=== PATIENT | female | born 1940 | race Caucasian/White ===

== ENCOUNTER 2018-05-21 21:19 | Emergency (ER) | payer OTHER ==
--- OUTSIDE RECORDS SUMMARY | 2018-05-21 21:22 | XMS REPORT ---
:1940 Author Organization eClinicalWorks Care Team Providers Name Role Phone Mckinley Simental Provider Role Unavailable Allergies, Adverse Reactions, Alerts Substance Reaction Event Type N.K.D.A. Info Not Available Non Drug Allergy Problems Problem Type Condition Code Onset Dates Condition Status Assessment Pain, joint, shoulder, left M25.512 Active Assessment Pain of left foot M79.672 Active Assessment Closed nondisplaced fracture of S92.515D Active proximal phalanx of lesser toe of left foot with routine healing, subsequent encounter Assessment Other closed displaced fracture of S42.292D Active proximal end of left humerus with routine healing, subsequent encounter Assessment Closed nondisplaced fracture of S92.415D Active proximal phalanx of left great toe with routine healing, subsequent encounter Medications Medication Code Code Instructions Start End Date Status Dosage System Date Lisinopril [facility] 60147461844 40 MG Oral Active TK 1 T PO D Clonazepam ND [id number] 1 MG Oral Active (Schedule IV Drug) TK 1 T PO TID PRN P Acetaminophen- [facility] 32420469334 300-30 MG Oral Active (Schedule Codeine #3 III Drug) TK 1 T PO Q 6 H PRN P Results No Known Results Summary Purpose eClinicalWorks Submission
--- NOTE | 2018-05-21 22:16 | RAD REPORT ---
EXAM DESCRIPTION: CT - CTHCSPWOC - 05/21/2018 10:02 pm CLINICAL HISTORY: Trip and fall, head and neck injury COMPARISON: CT head October 2017. TECHNIQUE: Axial 5 mm thick images of the head were obtained. Axial 2 mm thick images of the cervic al spine were obtained with sagittal and coronal reconstruction images generated and reviewed. All CT scans are performed using dose optimization technique as appropriate and may include automated exposure control or mA/KV adjustment according to patient size. FINDINGS: No intracranial hemorrhage, mass, edema or acute intracranial finding. No suspicion for ac [place] infarction. Moderate severity atrophy and chronic ischemic changes are present. Mastoid air cells and paranasal sinuses are clear. No globe or orbit abnormality seen. Cervical bodies are normal in height. No cervical fracture or acute vertebral body finding. There is slight retrolisthesis of C5 on C6 with C5-6 disc space narrowing. Mild bony foraminal encroachment is present. Carotid calcifications are present. No other disc space narrowing. Central canal detail is inherently limited. No paraspinal mass or hematoma. IMPRESSION: Moderate severity atrophy and chronic ischemic changes are present. No acute intracrania l finding. Intracranial findings are similar to the October comparison. Nonhemorrhagic infarction can be masked by the severity of chronic disease. Cervical spine degenerative change as detailed. No acute finding.
--- NOTE | 2018-05-21 22:44 | RAD REPORT ---
EXAM DESCRIPTION: RAD - Humerus Right - 05/21/2018 10:20 pm CLINICAL HISTORY: PAIN COMPARISON: Forearm Right dated 05/21/2018; Forearm Right dated 10/28/2017 FINDINGS: Right humerus and right forearm, multiple projections are submitted. Deformity of the distal radius is chronic and likely attributable to prior fracture. The humerus appe ars intact without evidence of acute fracture or dislocation. No elbow fracture seen.
--- NOTE | 2018-05-21 23:42 | EDPHYS ---
Physician Documentation [facility] Name: Valery Nair Age: 77 yrs Sex: Female : 1940 Arrival Date: 05/21/2018 Time: 21:28 Bed 13 Private MD: ED Physician Jeff Summers HPI: 05/21 23:28 This 77 yrs old Female presents to ER via EMS with complaints of Fall Injury. snw 23:28 Details of fall: The patient fell from an upright position, while walking, with cane. snw Onset: The symptoms/episode began/occurred suddenly, just prior to arrival. Associated injuries: The patient sustained injury to the head, contusion, tenderness. Severity of symptoms: At their worst the symptoms were mild, moderate. It is unknown whether or not the patient has had similar symptoms in the past. The patient has not recently seen a physician. pt was walking up driveway with cane, uneven cement and pt fell backward, striking her head, no LOC, no vomiting. Historical: - Allergies: 22:09 No Known Allergies; aa1 - Home Meds: 22:09 lisinopril 10 mg Oral tab 1 tab once daily [Active]; clonazepam 0.5 mg Oral tab aa1 [Active]; amlodipine oral [Active]; Tramadol Oral [Active]; Tylenol #3 Oral [Active]; - PMHx: 22:09 Anemia; CVA; Hypertension; Myocardial infarction; aa1 - PSHx: 22:09 Joint replacement; Hysterectomy; aa1 - Immunization history: Last tetanus immunization: unknown. - Social history:: Smoking status: Patient/guardian denies using tobacco. - Ebola Screening: : No symptoms or risks identified at this time. ROS: 23:28 Constitutional: Negative for fever, chills, and weight loss, Eyes: Negative for injury, snw pain, redness, and discharge, ENT: Negative for injury, pain, and discharge, Neck: Negative for injury, pain, and swelling, Cardiovascular: Negative for chest pain, palpitations, and edema, Respiratory: Negative for shortness of breath, cough, wheezing, and pleuritic chest pain, Abdomen/GI: Negative for abdominal pain, nausea, vomiting, diarrhea, and constipation, Back: Negative for injury and pain, : Negative for injury, bleeding, discharge, and swelling, MS/Extremity: Negative for injury and deformity, Skin: Negative for injury, rash, and discoloration. 23:28 Neuro: Positive for headache. Exam: 23:25 Constitutional: This is a well developed, well nourished patient who is awake, alert, snw and in no acute distress. Head/Face: Normocephalic, traumatic - upper occiput with abrasion, bleeding controlled. Eyes: Pupils equal round and reactive to light, extra-ocular motions intact. Lids and lashes normal. Conjunctiva and sclera are non-icteric and not injected. Cornea within normal limits. Periorbital areas with no swelling, redness, or edema. ENT: Nares patent. No nasal discharge, no septal abnormalities noted. Tympanic membranes are normal and external auditory canals are clear. Oropharynx with no redness, swelling, or masses, exudates, or evidence of obstruction, uvula midline. Mucous membranes moist. Neck: Trachea midline, no thyromegaly or masses palpated, and no cervical lymphadenopathy. Supple, full range of motion without nuchal rigidity, or vertebral point tenderness. No Meningismus. Chest/axilla: Normal chest wall appearance and motion. Nontender with no deformity. No lesions are appreciated. Cardiovascular: Regular rate and rhythm with a normal S1 and S2. No gallops, murmurs, or rubs. Normal PMI, no JVD. No pulse deficits. Respiratory: Lungs have equal breath sounds bilaterally, clear to auscultation and percussion. No rales, rhonchi or wheezes noted. No increased work of breathing, no retractions or nasal flaring. Abdomen/GI: Soft, non-tender, with normal bowel sounds. No distension or tympany. No guarding or rebound. No evidence of tenderness throughout. Back: No spinal tenderness. No costovertebral tenderness. Full range of motion. Neuro: Awake and alert, GCS 15, oriented to person, place, time, and situation. Cranial nerves II-XII grossly intact. Motor strength 5/5 in all extremities. Sensory grossly intact. Cerebellar exam normal. Normal gait. 23:25 Musculoskeletal/extremity: ROM: limited active range of motion due to pain, left shoulder, Circulation is intact in all extremities. 23:25 Skin: Appearance: normal except for affected area, injury, abrasion(s), small abrasion noted, right elbow. 23:25 Neuro: Mentation: is normal, Memory: is normal, Cerebellar function: is grossly normal, Sensation: is normal, Babinski testing is normal, seizure activity, is not displayed by the patient, hard of hearing. Vital Signs: 21:30 BP 163 / 67; Pulse 83; Resp 18; Temp 97.1; Pulse Ox 99% on R/A; Weight 38.1 kg; Height aa1 5 ft. 0 in. (152.40 cm); Pain 8/10; 22:30 BP 177 / 74; Pulse 76; Resp 18; Pulse Ox 96% on R/A; Pain 8/10; aa1 23:30 BP 144 / 95; Pulse 72; Resp 16; Pulse Ox 96% on R/A; Pain 6/10; aa1 05/22 00:05 BP 109 / 63; Pulse 77; Resp 18; Temp 97.2; Pulse Ox 95% on R/A; Pain 2/10; aa1 05/21 21:30 Body Mass Index 16.40 (38.10 kg, 152.40 cm) aa Janell Coma Score: 05/21 21:30 Eye Response: spontaneous(4). Verbal Response: oriented(5). Motor Response: obeys aa1 commands(6). Total: 15. Trauma Score (Adult): 21:30 Eye Response: spontaneous(1); Verbal Response: oriented(1); Motor Response: obeys aa1 commands(2); Systolic BP: > 89 mm Hg(4); Respiratory Rate: 10 to 29 per min(4); Janell Score: 15; Trauma Score: 12 22:30 Eye Response: spontaneous(1); Verbal Response: oriented(1); Motor Response: obeys aa1 commands(2); Systolic BP: > 89 mm Hg(4); Respiratory Rate: 10 to 29 per min(4); Carey Score: 15; Trauma Score: 12 23:30 Eye Response: spontaneous(1); Verbal Response: oriented(1); Motor Response: obeys aa1 commands(2); Systolic BP: > 89 mm Hg(4); Respiratory Rate: 10 to 29 per min(4); Janell Score: 15; Trauma Score: 12 05/22 00:05 Eye Response: spontaneous(1); Verbal Response: oriented(1); Motor Response: obeys aa1 commands(2); Systolic BP: > 89 mm Hg(4); Respiratory Rate: 10 to 29 per min(4); Carey Score: 15; Trauma Score: 12 MDM: 05/21 22:02 Patient medically screened. [facility] 23:43 Data reviewed: vital signs, nurses notes. Data interpreted: Pulse oximetry: on room air snw is 96 %. Interpretation: acceptable. Counseling: I had a detailed discussion with the patient and/or guardian regarding: the historical points, exam findings, and any diagnostic results supporting the discharge/admit diagnosis, the presence of at least one elevated blood pressure reading (>120/80) during this emergency department visit, radiology results, the need for outpatient follow up, to return to the emergency department if symptoms worsen or persist or if there are any questions or concerns that arise at home. Special discussion: I have referred the patient to see his PCP for further evaluation of high blood pressure. Based on the patient's history, exam and DX evaluation, there is no indication for emergent intervention or inpatient TX. It is understood by the patient/guardian that if the SXs persist or worsen they need to return immediately for re-evaluation. Based on the history and exam findings, there is no indication for further emergent testing or inpatient evaluation. I discussed with the patient/guardian the need to see the neurologist for further evaluation of the symptoms. I discussed with the patient/guardian the need to see the primary care provider for further evaluation of the symptoms. 23:52 ED course: appt with PCP in the a.m.. 05/21 21:52 Order name: CT Head C Spine; Complete Time: 22:18 05/21 21:52 Order name: Forearm Right XRAY aa05/21 21:52 Order name: Humerus Right XRAY; Complete Time: 22:45 aa05/21 23:07 Order name: Wound Care; Complete Time: 00:07 snw 05/21 23:07 Order name: Misc. Order: please ambulate pt in hallways; Complete Time: 23:37 snw 05/21 23:44 Order name: Wound dressing; Complete Time: 00:06 snw Administered Medications: 23:50 Drug: fentaNYL (PF) 25 mcg Route: IVP; Site: right antecubital; 05/22 00:07 Follow up: Response: No adverse reaction; Pain is decreased aa1 00:06 Not Given (Other Intervention Used): fentaNYL (PF) 25 mcg IM once aa1 Disposition: 14:01 Co-signature as Attending Physician, eJff Summers MD I agree with the assessment and [facility] plan of care. Disposition: 05/21/18 23:41 Discharged to Home. Impression: Fall on same level from slipping, tripping and stumbling, Unspecified injury of head, Abrasion of elbow, Abrasion of scalp. - Condition is Stable. - Discharge Instructions: Acetaminophen Dosage Chart, Pediatric, Head Injury, Adult, Fall Prevention in the Home, Post-Concussion Syndrome. - Medication Reconciliation Form, Thank You Letter, Antibiotic Education, Prescription Opioid Use form. - Follow up: Private Physician; When: 1 - 2 days; Reason: Recheck today's complaints, Continuance of care, Re-evaluation by your physician. Follow up: Emergency Department; When: As needed; Reason: Worsening of condition. Signatures: Dispatcher [employer] EDMS Pamela Noel RN RN aa1 Jeff Summers MD MD cha Therrien, Shelly, HOOKING MACHINE OPERATOR-C HOOKING MACHINE OPERATOR-Csnw Corrections: (The following items were deleted from the chart) 05/21 23:28 23:25 Constitutional: This is a well developed, well nourished patient who is awake, snw alert, and in no acute distress. Eyes: Pupils equal round and reactive to light, extra-ocular motions intact. Lids and lashes normal. Conjunctiva and sclera are non-icteric and not injected. Cornea within normal limits. Periorbital areas with no swelling, redness, or edema. ENT: Nares patent. No nasal discharge, no septal abnormalities noted. Tympanic membranes are normal and external auditory canals are clear. Oropharynx with no redness, swelling, or masses, exudates, or evidence of obstruction, uvula midline. Mucous membranes moist. Neck: Trachea midline, no thyromegaly or masses palpated, and no cervical lymphadenopathy. Supple, full range of motion without nuchal rigidity, or vertebral point tenderness. No Meningismus. Chest/axilla: Normal chest wall appearance and motion. Nontender with no deformity. No lesions are appreciated. Cardiovascular: Regular rate and rhythm with a normal S1 and S2. No gallops, murmurs, or rubs. Normal PMI, no JVD. No pulse deficits. Respiratory: Lungs have equal breath sounds bilaterally, clear to auscultation and percussion. No rales, rhonchi or wheezes noted. No increased work of breathing, no retractions or nasal flaring. Abdomen/GI: Soft, non-tender, with normal bowel sounds. No distension or tympany. No guarding or rebound. No evidence of tenderness throughout. Back: No spinal tenderness. No costovertebral tenderness. Full range of motion. Neuro: Awake and alert, GCS 15, oriented to person, place, time, and situation. Cranial nerves II-XII grossly intact. Motor strength 5/5 in all extremities. Sensory grossly intact. Cerebellar exam normal. Normal gait. snw 05/22 00:07 05/21 23:41 05/21/2018 23:41 Discharged to Home. Impression: Fall on same level from aa1 slipping, tripping and stumbling; Unspecified injury of head; Abrasion of elbow; Abrasion of scalp. Condition is Stable. Forms are Medication Reconciliation Form, Thank You Letter, Antibiotic Education, Prescription Opioid Use. Follow up: Private Physician; When: 1 - 2 days; Reason: Recheck today's complaints, Continuance of care, Re-evaluation by your physician. Follow up: Emergency Department; When: As needed; Reason: Worsening of condition. snw
--- NOTE | 2018-05-21 23:42 | ER ---
Nurse's Notes [facility] Name: Valery Nair Age: 77 yrs Sex: Female : 1940 Arrival Date: 05/21/2018 Time: 21:28 Bed 13 Private MD: Diagnosis: Fall on same level from slipping, tripping and stumbling;Unspecified injury of head;Abrasion of elbow;Abrasion of scalp Presentation: 05/21 21:29 Presenting complaint: EMS states: pt was walking up the sidewalk to her apartment and aa1 tripped on some uneven concrete causing her to fall and hit the back of her head on the ground. Denies LOC. Hematoma noted to back of head and abrasion noted to R elbow. Pt A\T\O x 4 with c-collar in place. Care prior to arrival: Cervical collar in place. IV initiated. 20 GA, in the right antecubital area. Mechanism of Injury: Fall from standing position. Trauma event details: Injury occurred in the [facility], Injury occurred: at home. Injury occurred: May 21, 2018. 21:29 Acuity: MARIBETH 3 aa1 21:29 Method Of Arrival: [facility] aa1 21:29 Transition of care: patient was not received from another setting of care. Onset of aa1 symptoms was May 21, 2018. Risk Assessment: Do you want to hurt yourself or someone else? Patient reports no desire to harm self or others. Initial Sepsis Screen: Does the patient meet any 2 criteria? No. Patient's initial sepsis screen is negative. Does the patient have a suspected source of infection? No. Patient's initial sepsis screen is negative. Trauma Activation: Alert Physician: ED Physician; Name: Kristopher; Notified At: 21:29; Arrived At: 21:29 Physician: General Surgeon; Name: n/a; Notified At: 21:29; Arrived At: Physician: Radiology; Name: Shirin Sánchez; Notified At: 21:29; Arrived At: 21:32 Physician: Respiratory; Name: n/a; Notified At: 21:29; Arrived At: Physician: Lab; Name: n/a; Notified At: 21:29; Arrived At: Historical: - Allergies: 22:09 No Known Allergies; aa1 - Home Meds: 22:09 lisinopril 10 mg Oral tab 1 tab once daily [Active]; clonazepam 0.5 mg Oral tab aa1 [Active]; amlodipine oral [Active]; Tramadol Oral [Active]; Tylenol #3 Oral [Active]; - PMHx: 22:09 Anemia; CVA; Hypertension; Myocardial infarction; aa1 - PSHx: 22:09 Joint replacement; Hysterectomy; aa1 - Immunization history: Last tetanus immunization: unknown. - Social history:: Smoking status: Patient/guardian denies using tobacco. - Ebola Screening: : No symptoms or risks identified at this time. Screenin:30 Abuse screen: Denies threats or abuse. Denies injuries from another. Tuberculosis aa1 screening: No symptoms or risk factors identified. 21:31 Nutritional screening: No deficits noted. Fall Risk Fall in past 12 months (25 points). aa1 No secondary diagnosis (0 pts). IV access (20 points). Ambulatory Aid- Crutches/Cane/Walker (15 pts). Mental Status- Oriented to own ability (0 pts). Primary Survey: 21:30 A: Airway: patent. Breathing/Chest: Respiratory pattern: regular, Respiratory effort: aa1 spontaneous, unlabored, Breath sounds: clear, bilaterally. Chest inspection: symmetrical rise and fall of the chest. Circulation: Heart tones present. Pulses: palpable right radial artery and left radial artery. Skin color: pink, Skin temperature: warm, dry. Disability Alert. 22:30 Reassessment Airway Airway Breathing/Chest Respiratory pattern Regular Respiratory aa1 effort Spontaneous Unlabored Circulation Color Laurier Temperature Warm Disability Alert. Secondary Survey: 21:30 HEENT: Head Other hematoma with abrasion noted to back of head. Gastrointestinal: No aa1 deficits noted. : No signs and/or symptoms were reported regarding the genitourinary system. Musculoskeletal: Circulation, motion, and sensation intact. Range of motion: intact in all extremities. Assessment: 21:30 General: Appears in no apparent distress. comfortable, slender, Behavior is calm, aa1 cooperative, appropriate for age. Pain: Complains of pain in scalp and right arm Pain currently is 8 out of 10 on a pain scale. Quality of pain is described as throbbing. Neuro: Level of Consciousness is awake, alert, obeys commands, Oriented to person, place, time, situation, Moves all extremities. Speech is normal, Pupils are PERRLA, Reports headache Denies blurred vision dizziness, diplopia. Cardiovascular: Heart tones S1 S2 present Rhythm is regular. Respiratory: Airway is patent Respiratory effort is even, unlabored, Respiratory pattern is regular, symmetrical. GI: No signs and/or symptoms were reported involving the gastrointestinal system. : No signs and/or symptoms were reported regarding the genitourinary system. EENT: No signs and/or symptoms were reported regarding the EENT system. Derm: Skin is intact, is healthy with good turgor, has skin tears on R elbow Skin is pink, warm \T\ dry. Musculoskeletal: Circulation, motion, and sensation intact. Capillary refill < 3 seconds. Injury Description: Head injury sustained to scalp is closed, did not have loss of consciousness. 23:30 Reassessment: Patient appears in no apparent distress at this time. Patient and/or aa1 family updated on plan of care and expected duration. Pain level reassessed. Patient is alert, oriented x 3, equal unlabored respirations, skin warm/dry/pink. Pt ambulated hallway to restroom with steady gait. Denies dizziness or lightheadedness Patient states feeling better. 05/22 00:00 Reassessment: Patient appears in no apparent distress at this time. Patient is alert, aa1 oriented x 3, equal unlabored respirations, skin warm/dry/pink. Discussed d/c \T\ f/u instructions with pt \T\ family; denies questions or concerns at this time. Vital Signs: 05/21 21:30 BP 163 / 67; Pulse 83; Resp 18; Temp 97.1; Pulse Ox 99% on R/A; Weight 38.1 kg; Height aa1 5 ft. 0 in. (152.40 cm); Pain 8/10; 22:30 BP 177 / 74; Pulse 76; Resp 18; Pulse Ox 96% on R/A; Pain 8/10; aa1 23:30 BP 144 / 95; Pulse 72; Resp 16; Pulse Ox 96% on R/A; Pain 6/10; aa1 05/22 00:05 BP 109 / 63; Pulse 77; Resp 18; Temp 97.2; Pulse Ox 95% on R/A; Pain 2/10; aa1 05/21 21:30 Body Mass Index 16.40 (38.10 kg, 152.40 cm) aa1 Janell Coma Score: 05/21 21:30 Eye Response: spontaneous(4). Verbal Response: oriented(5). Motor Response: obeys aa1 commands(6). Total: 15. Trauma Score (Adult): 21:30 Eye Response: spontaneous(1); Verbal Response: oriented(1); Motor Response: obeys aa1 commands(2); Systolic BP: > 89 mm Hg(4); Respiratory Rate: 10 to 29 per min(4); [place] Score: 15; Trauma Score: 12 22:30 Eye Response: spontaneous(1); Verbal Response: oriented(1); Motor Response: obeys aa1 commands(2); Systolic BP: > 89 mm Hg(4); Respiratory Rate: 10 to 29 per min(4); [place] Score: 15; Trauma Score: 12 23:30 Eye Response: spontaneous(1); Verbal Response: oriented(1); Motor Response: obeys aa1 commands(2); Systolic BP: > 89 mm Hg(4); Respiratory Rate: 10 to 29 per min(4); [place] Score: 15; Trauma Score: 12 0807 00:05 Eye Response: spontaneous(1); Verbal Response: oriented(1); Motor Response: obeys aa1 commands(2); Systolic BP: > 89 mm Hg(4); Respiratory Rate: 10 to 29 per min(4); Janell Score: 15; Trauma Score: 12 ED Course: 05/21 21:28 Patient arrived in ED. aa1 21:29 Arm band placed on right wrist. Patient placed in an exam room, on a stretcher. aa1 21:30 Patient has correct armband on for positive identification. Bed in low position. Call aa1 light in reach. Side rails up X2. 21:30 Patient maintains SpO2 saturation greater than 95% on room air. aa1 21:31 Thermoregulation: warm blanket given to patient. aa1 21:35 Triage completed. aa1 21:49 Pamela Noel, RN is Primary Nurse. aa1 21:[address] via stretcher. nj 22:00 [facility] snw 22:00 Jeff Summers MD is Attending Physician. snw 22:02 CT completed. Patient tolerated procedure well. Patient moved back from CT. nj 22:03 Patient moved to radiology. nj 22:03 CT Head C Spine In Process Unspecified. EDMS 22:20 Forearm Right XRAY In Process Unspecified. EDMS 22:20 Humerus Right XRAY In Process Unspecified. EDMS 23:35 Wound care: to abrasion, located on scalp was irrigated with normal saline, dressed aa1 with 4X4s, cling, Patient tolerated well. 08 00:00 No provider procedures requiring assistance completed. IV discontinued, intact, aa1 bleeding controlled, No redness/swelling at site. Pressure dressing applied. Administered Medications: 05/21 23:50 Drug: fentaNYL (PF) 25 mcg Route: IVP; Site: right antecubital; aa1 05/22 00:07 Follow up: Response: No adverse reaction; Pain is decreased aa1 00:06 Not Given (Other Intervention Used): fentaNYL (PF) 25 mcg IM once aa1 Intake: 00:05 PO: 0ml; IV: 0ml; Total: 0ml. aa1 Outcome: 05/21 23:41 Discharge ordered by . snw 05/22 00:05 Discharged to home via wheelchair, with family. aa1 Condition: good Discharge instructions given to patient, family, Instructed on discharge instructions, follow up and referral plans. medication usage, wound care, Demonstrated understanding of instructions, follow-up care, medications, wound care. 00:05 Patient's length of stay in the Emergency Department was greater than 2 hours. Awaiting aa1 transportation homePatient's length of stay extended due to 00:07 Patient left the ED. aa1 Signatures: Dispatcher [employer] Pamela Gutierrez RN RN aa1 Ana Lee FNP-C FNP-Mamadou Pandey Corrections: (The following items were deleted from the chart) 05/21 21:38 21:29 Trauma Activation: Alert aa1 aa1
[2018-05-21] MEDS ORDERED: FENTANYL CITR 100 MCG/2 ML ONE (23:49)
[2018-05-22 00:23] VITALS: BP 109/63; TEMP 97.2; O2SAT 95
== END 2018-05-22 00:07 | disposition home or self-care (01) ==
LOC: ER 21:19
DX: S00.01XA Abrasion of scalp, initial encounter (principal); S50.311A Abrasion of right elbow, initial encounter; I10 Essential (primary) hypertension; I25.2 Old myocardial infarction; W18.30XA Fall on same level, unspecified, initial encounter; Y93.01 Activity, walking, marching and hiking; Y92.89 Other specified places as the place of occurrence of the external cause; Z86.73 Personal history of transient ischemic attack (TIA), and cerebral infarction without residual deficits
CPT/HCPCS: 70450; 72125; 73060; 73090; J3010; 96374; 99285

== ENCOUNTER 2018-05-27 16:05 | Inpatient (IN) | payer OTHER ==
--- OUTSIDE RECORDS SUMMARY | 2018-05-27 16:07 | XMS REPORT ---
[...] Date Status Dosage System Date Lisinopril [facility] [id number] 40 MG Oral Active TK 1 T PO D Clonazepam ND [id number] 1 MG Oral Active (Schedule IV Drug) TK 1 T PO TID PRN P Acetaminophen- [facility] [id number] 300-30 MG Oral Active (Schedule Codeine #3 III Drug) TK 1 T PO Q 6 H PRN P Results No Known Results Summary Purpose eClinicalWorks Submission
--- NOTE | 2018-05-27 17:12 | RAD REPORT ---
EXAM DESCRIPTION: CT - Head Brain Wo Cont - 05/27/2018 4:54 pm CLINICAL HISTORY: Weakness, dizziness, syncope COMPARISON: October 2017 TECHNIQUE: Axial 5 mm thick images of the head were obtained without IV contrast. All CT scans are performed using dose optimization technique as appropriate and may include automated exposure control or mA/KV adjustment according to patient size. FINDINGS: No intracranial hemorrhage, mass, edema or shift of mid-line structures. No acute cortical based infarction. Moderate atrophy and chronic ischemic changes are present. Pattern is similar to J anuary. No abnormal extra-axial fluid collections. Ventricular size is in proportion to volume loss. Arterial and physiologic calcifications are present. No new mastoid air cell or paranasal sinus finding. No acute bony findings. IMPRESSION: Moderate atrophy and chronic ischemic change similar to comparison. No acute findings se en. Chronic ischemic changes can mask nonhemorrhagic acute infarction. MR brain followup can be obtained if there is ongoing concern for acute ischemia.
--- NOTE | 2018-05-27 17:14 | RAD REPORT ---
EXAM DESCRIPTION: RAD - Chest Single View - 05/27/2018 5:02 pm CLINICAL HISTORY: Cough, shortness of breath, COPD COMPARISON: October 2017 TECHNIQUE: AP portable chest image was obtained 1648 hours . FINDINGS: Extensive fibrotic lung changes present as a baseline. These can potentially mask early in terstitial edema or infiltrate. Pattern is not clearly different from comparison. A focal mass or con solidation is not identified. Heart size and vasculature are normal range and stable. No measurable p leural effusion and no pneumothorax. Disc and bony degenerative changes are present. An acute finding is not seen. No acute aortic findings suspected. IMPRESSION: Chronic interstitial fibrotic pattern similar to comparison. No acute finding noted.
[2018-05-27 17:42] LABS: Absolute Lymphocytes (CBC) 1.5 K/uL (0.7-4.9); Absolute Monocytes 1.3 K/uL (0.1-1.3); Absolute Neutrophil 15.4 K/uL (1.8-8.0); Eosinophils % 0.1 % (0-4.4); Hematocrit 40.9 % (36.0-45.0); MCH 32.9 pg (27.0-35.0); MCV 100.3 fL (80-100); MPV 9.5 fL (7.6-11.3); Monocytes % 7.1 % (3.3-12.3); RBC Red Blood Cell Count 4.08 M/uL (3.86-4.86)
[2018-05-27 17:47] LABS: Protime INR 0.98
[2018-05-27 18:03] LABS: Albumin 3.4 g/dL (3.4-5.0); Bilirubin Direct 0.1 mg/dL (0-0.2); Bilirubin Total 0.2 mg/dL (0.2-1.0); CKMB Creatine Kinase MB 7.5 ng/mL (0.3-3.6); Magnesium 2.2 mg/dL (1.8-2.4); Potassium 4.2 mmol/L (3.5-5.1); Protein, Total 8.6 g/dL (6.4-8.2)
[2018-05-27 19:02] LABS: Urine Blood TRACE (NEG); Urine Glucose NEGATIVE (NEG); Urine Protein 2+ (NEG); Urine Specific Gravity 1.025 (1.005-1.030)
[2018-05-27] MEDS ORDERED: NA CHLORIDE 0.9% 0 ML ONE (19:07)
[2018-05-27] MEDS ORDERED: ENOXAPARIN 40 MG/0.4 ML SQ ONE ×2 (19:07→19:34)
[2018-05-27] MEDS ORDERED: CEFTRIAXONE/SWI 1gm 0 GM/0 ML SYR ONE (19:08)
--- NOTE | 2018-05-27 19:10 | EDPHYS ---
Physician Documentation [facility] Name: Valery Nair Age: 77 yrs Sex: Female : 1940 Arrival Date: 05/27/2018 Time: 16:11 Bed 6 Private MD: ED Physician Monico Chavez HPI: 05/27 16:21 This 77 yrs old Female presents to ER via EMS with complaints of General cp Weakness. 16:21 The patient's problem is reported as weakness, that is generalized. cp 16:21 Onset: The symptoms/episode began/occurred gradually. Duration: The episode is cp continuous. Associated signs and symptoms: Pertinent positives: diarrhea, Pertinent negatives: abdominal pain, chest pain, diaphoresis, headache, vomiting. Severity of symptoms: in the emergency department the symptoms are unchanged despite home interventions. Patient's baseline: Neuro: alert and fully oriented, Ambulation: walks with assist only, Speech: normal, The patient has a previous history of CVA. Historical: - Allergies: 16:15 No Known Allergies; sg - Home Meds: 16:15 amlodipine oral [Active]; clonazepam 0.5 mg Oral tab [Active]; lisinopril 10 mg Oral sg tab 1 tab once daily [Active]; Tramadol Oral [Active]; Tylenol #3 Oral [Active]; - PMHx: 16:15 Anemia; CVA; Hypertension; Myocardial infarction; sg - PSHx: 16:15 Joint replacement; Hysterectomy; sg - Immunization history:: Adult Immunizations. - Social history:: Smoking status: Patient/guardian denies using tobacco. - Ebola Screening: : Patient negative for fever greater than or equal to 101.5 degrees Fahrenheit, and additional compatible Ebola Virus Disease symptoms Patient denies exposure to infectious person Patient denies travel to an Ebola-affected area in the 21 days before illness onset No symptoms or risks identified at this time. ROS: 16:25 Constitutional: Positive for poor PO intake, Negative for body aches, chills, fever. cp 16:25 Eyes: Negative for injury, pain, redness, and discharge. cp 16:25 ENT: Negative for drainage from ear(s), ear pain, sore throat, difficulty swallowing, difficulty handling secretions. 16:25 Cardiovascular: Negative for chest pain, edema, palpitations. 16:25 Respiratory: Negative for cough, shortness of breath, wheezing. 16:25 Abdomen/GI: Positive for diarrhea, Negative for abdominal pain, vomiting, constipation, black/tarry stool, rectal bleeding. 16:25 Back: Negative for pain at rest, pain with movement, radiated pain. 16:25 : Negative for urinary symptoms. 16:25 Skin: Negative for cellulitis, rash. 16:25 Neuro: Positive for weakness, Negative for altered mental status, headache, syncope. 16:25 All other systems are negative. Exam: 16:30 Constitutional: The patient appears in no acute distress, alert, awake, cp non-diaphoretic, non-toxic, well developed, frail. 16:30 Head/Face: Normocephalic, atraumatic. Eyes: Pupils equal round and reactive to light, cp extra-ocular motions intact. Lids and lashes normal. Conjunctiva and sclera are non-icteric and not injected. Cornea within normal limits. Periorbital areas with no swelling, redness, or edema. 16:30 ENT: External ear(s): are unremarkable, Ear canal(s): are normal, clear, TM's: bulging, is not appreciated, bilaterally, dullness, bilaterally, erythema, is not appreciated, bilaterally, Nose: is normal, Mouth: Lips: dry, Oral mucosa: dry, Posterior pharynx: Airway: no evidence of obstruction, patent, Uvula: midline, swelling, is not appreciated, erythema, is not appreciated, exudate, is not appreciated, Voice: is normal. 16:30 Neck: External neck: is normal, ROM/movement: is normal, is supple, without pain, no range of motions limitations, no meningismus, no nuchal rigidity. 16:30 Chest/axilla: Inspection: normal, Palpation: is normal, no crepitus, no tenderness. 16:30 Cardiovascular: Rate: normal, Rhythm: regular, Pulses: Pulses are 2+ in right radial artery and left radial artery. Edema: is not appreciated, JVD: is not appreciated. 16:30 Respiratory: the patient does not display signs of respiratory distress, Respirations: normal, no use of accessory muscles, no retractions, no splinting, no tachypnea, labored breathing, is not present, Breath sounds: are clear throughout, no decreased breath sounds, no stridor, no wheezing. 16:30 Abdomen/GI: Inspection: abdomen appears normal, Bowel sounds: active, all quadrants, Palpation: abdomen is soft and non-tender, in all quadrants, rebound tenderness, is not appreciated, voluntary guarding, is not appreciated, involuntary guarding, is not appreciated. 16:30 Back: pain, is absent, ROM is normal. 16:30 Skin: cellulitis, is not appreciated, no rash present. 16:30 Neuro: Orientation: to person, place \T\ time. Mentation: lucid, able to follow commands, Cerebellar function: is grossly normal, Motor: moves all fours, general weakness w/o focal deficits, Sensation: no obvious gross deficits, Gait: not tested. 16:42 ECG was reviewed by the Attending Physician. cp 17:36 Radiologist reports: no acute findings cp Vital Signs: 16:11 Temp 97.8; sv 16:15 BP 129 / 63; Pulse 90 MON; Resp 17 S; Pulse Ox 98% on R/A; sg 16:24 Weight 42.64 kg (R); sg 17:33 BP 95 / 46; Pulse 89; Resp 17; Pulse Ox 99% ; sv 18:30 BP 130 / 77; Pulse 92; Resp 17 S; Pulse Ox 98% on 3 lpm NC; sg 19:00 BP 136 / 89; Pulse 98; Resp 17; Pulse Ox 99% on 3 lpm NC; sg 19:30 BP 106 / 56; Pulse 98; Resp 16; Pulse Ox 99% on R/A; Pain 0/10; ao 20:30 BP 112 / 64; Pulse 98; Resp 16; Pulse Ox 96% on R/A; ao 21:30 BP 108 / 62; Pulse 97; Resp 12; Pulse Ox 95% on R/A; ao 22:28 BP 111 / 65; Pulse 90; Resp 12; Pulse Ox 95% ; Pain 0/10; ao 22:45 BP 124 / 60; Pulse 92; Resp 16; Pulse Ox 98% on 2 lpm NC; ao MDM: 16:12 Patient medically screened. cp 17:00 Differential diagnosis: CVA, TIA, metabolic disorder, drug effects, dehydration, cp sepsis, UTI, pneumonia, FL, cardiac arrythmia. 18:10 Data reviewed: vital signs, nurses notes, lab test result(s), EKG, radiologic studies, cp CT scan, plain films. 18:10 Test interpretation: by ED physician or midlevel provider: ECG, plain radiologic cp studies. Counseling: I had a detailed discussion with the patient and/or guardian regarding: the historical points, exam findings, and any diagnostic results supporting the discharge/admit diagnosis, lab results, radiology results, the need for further work-up and treatment in the hospital. 05/27 16:22 Order name: Basic Metabolic Panel; Complete Time: 18:04 cp /12 16:22 Order name: CBC with Diff; Complete Time: 18:04 cp /12 16:22 Order name: Ckmb; Complete Time: 18:04 cp 08/12 16:22 Order name: CPK; Complete Time: 18:04 cp /12 16:22 Order name: LFT's; Complete Time: 18:04 cp /12 16:22 Order name: Magnesium; Complete Time: 18:04 cp 08/12 16:22 Order name: NT PRO-BNP; Complete Time: 18:04 cp /12 16:22 Order name: PT-INR; Complete Time: 18:04 cp /12 16:22 Order name: Ptt, Activated; Complete Time: 18:04 cp 08/12 16:22 Order name: Troponin (emerg Dept Use Only); Complete Time: 18:04 cp /12 18:08 Order name: Blood Culture Adult (2) cp 08/12 18:08 Order name: Procalcitonin; Complete Time: 20:55 cp 08/12 20:55 Interpretation: Abnormal: Procalcitonin 237.67. cp 08/12 18:08 Order name: Lactate; Complete Time: 20:55 cp 08/12 20:55 Interpretation: Abnormal: LAC 2.3. cp 08/12 18:55 Order name: Urine Dipstick--Ancillary (enter results); Complete Time: 19:35 eb 08/12 16:22 Order name: XRAY Chest (1 view); Complete Time: 17:33 cp 08/12 17:34 Interpretation: Report review. cp 08/12 16:22 Order name: EKG; Complete Time: 16:23 cp 08/12 16:22 Order name: Cardiac monitoring; Complete Time: 16:23 cp /12 16:22 Order name: EKG - Nurse/Tech; Complete Time: 16:41 cp / 16:22 Order name: IV Saline Lock; Complete Time: 16:23 cp 0812 16:22 Order name: Labs collected and sent; Complete Time: 16:23 0812 16:22 Order name: O2 Per Protocol; Complete Time: 16:23 cp 08/12 16:22 Order name: CT Head Brain wo Cont; Complete Time: 17:33 cp 08/12 17:34 Interpretation: Report reviewed. 08 20:57 Order name: Urine Microscopic Only 08 16:22 Order name: O2 Sat Monitoring; Complete Time: 16:24 0812 16:22 Order name: Urine Dipstick-Ancillary (obtain specimen); Complete Time: 19:50 cp 08 16:22 Order name: Cath; Complete Time: 19:50 cp EC:42 Rate is 88 beats/min. Rhythm is regular. VT interval is normal. QRS interval is normal. cp QT interval is normal. Interpreted by me. Reviewed by me. Administered Medications: 17:43 Drug: NS 0.9% 250 ml Route: IV; Rate: bolus; Site: right antecubital; sg 19:00 Follow up: IV Status: Completed infusion; IV Intake: 250ml ao 17:43 Drug: NS 0.9% 1000 ml Route: IV; Rate: 100 ml/hr; Site: right antecubital; sg 22:50 Follow up: IV Status: Infusion continued upon admission; IV Intake: 400ml ao 19:30 Drug: Lovenox 1 mg/kg Route: Sub-Q; Site: right lower abdomen; sg 22:49 Follow up: Response: No adverse reaction ao 19:48 Drug: NS 0.9% 500 ml Route: IV; Rate: bolus; Site: right antecubital; ao 22:49 Follow up: IV Status: Completed infusion ao 19:49 Drug: Rocephin 1 grams Route: IV; Rate: bolus; Site: right antecubital; ao 20:20 Follow up: IV Status: Completed infusion; IV Intake: 10ml ao 19:49 Drug: Aspirin Chewable Tablet 324 mg Route: PO; ao 22:50 Follow up: Response: No adverse reaction ao 22:19 Drug: NS 0.9% (30 ml/kg) 30 ml/kg Route: IV; Rate: bolus; Site: left antecubital; ao 22:49 Follow up: IV Status: Completed infusion; IV Intake: 1200ml ao Disposition: 05/27/18 19:09 Hospitalization ordered by Pancho Boyd for Inpatient Admission. Preliminary diagnosis are Weakness - General, Dehydration, Elevated Troponin. - Bed requested for Telemetry/MedSurg (Inpatient). - Status is Inpatient Admission. ao - Condition is Stable. - Problem is new. - Symptoms have improved. UTI on Admission? No Addendum: 06/05/2018 08:27 Co-signature as Attending Physician, Monico Chavez MD. r n Signatures: Dispatcher [employer] EDMS Prema Mathis RN RN kl Gay, Steven, RN RN sg Nieto, Roman, MD MD rn Page, Corey, PA PA cp Williams Brown RN RN ao Corrections: (The following items were deleted from the chart) 05/27 19:10 19:09 Hospitalization Ordered by Pancho Boyd DO for Inpatient Admission. Preliminary cp diagnosis is Weakness - General; Dehydration. Bed requested for Telemetry/MedSurg (Inpatient). Status is Inpatient Admission. Condition is Stable. Problem is new. Symptoms have improved. UTI on Admission? No. cp 19:48 19:10 05/27/2018 19:09 Hospitalization Ordered by Pancho Boyd DO for Inpatient kl Admission. Preliminary diagnosis is Weakness - General; Dehydration; Elevated Troponin. Bed requested for Telemetry/MedSurg (Inpatient). Status is Inpatient Admission. Condition is Stable. Problem is new. Symptoms have improved. UTI on Admission? No. cp 20:16 16:22 Orthostatics ordered. cp ao 22:48 19:48 05/27/2018 19:09 Hospitalization Ordered by Pancho Boyd DO for Inpatient ao Admission. Preliminary diagnosis is Weakness - General; Dehydration; Elevated Troponin. Bed requested for Telemetry/MedSurg (Inpatient). Status is Inpatient Admission. Condition is Stable. Problem is new. Symptoms have improved. UTI on Admission? No. kl
--- NOTE | 2018-05-27 19:10 | ER ---
Nurse's Notes [facility] Name: Valery Nair Age: 77 yrs Sex: Female : 1940 Arrival Date: 05/27/2018 Time: 16:11 Bed 6 Private MD: Diagnosis: Weakness-General;Dehydration;Elevated Troponin Presentation: 05/27 16:12 Presenting complaint: EMS states: Family reports that the patient has become more weak sg over the last couple of days, pt reports decreased appetite and fatigue, diarrhea for 2-3 days. Transition of care: patient was not received from another setting of care. Onset of symptoms was May 27, 2018. Risk Assessment: Do you want to hurt yourself or someone else? Patient reports no desire to harm self or others. Initial Sepsis Screen: Does the patient meet any 2 criteria? No. Patient's initial sepsis screen is negative. Does the patient have a suspected source of infection? No. Patient's initial sepsis screen is negative. Care prior to arrival: Medication(s) given: Normal saline infusion, 250 mL IV initiated. 22 GA, in the left forearm, Glucose check: 121. 16:12 Method Of Arrival: EMS: [facility] sg 16:12 Acuity: MARIBETH 3 sg Historical: - Allergies: 16:15 No Known Allergies; sg - Home Meds: 16:15 amlodipine oral [Active]; clonazepam 0.5 mg Oral tab [Active]; lisinopril 10 mg Oral sg tab 1 tab once daily [Active]; Tramadol Oral [Active]; Tylenol #3 Oral [Active]; - PMHx: 16:15 Anemia; CVA; Hypertension; Myocardial infarction; sg - PSHx: 16:15 Joint replacement; Hysterectomy; sg - Immunization history:: Adult Immunizations. - Social history:: Smoking status: Patient/guardian denies using tobacco. - Ebola Screening: : Patient negative for fever greater than or equal to 101.5 degrees Fahrenheit, and additional compatible Ebola Virus Disease symptoms Patient denies exposure to infectious person Patient denies travel to an Ebola-affected area in the 21 days before illness onset No symptoms or risks identified at this time. Screenin:12 Abuse screen: Denies threats or abuse. Denies injuries from another. Nutritional sv screening: No deficits noted. Tuberculosis screening: No symptoms or risk factors identified. 22:43 Fall Risk Fall in past 12 months (25 points). ao Assessment: 16:20 General: Appears in no apparent distress. comfortable, well groomed, well developed, sg well nourished, Behavior is calm, cooperative, appropriate for age, Reports fever for feeling ill for fatigue for 2-3 days, Denies chills. Pain: Denies pain. Neuro: Level of Consciousness is awake, alert, obeys commands, Oriented to person, place, time, Ophthalmic Assistant are equal bilaterally Moves all extremities. Speech is normal, Facial symmetry appears normal. Cardiovascular: Heart tones S1 S2 present Capillary refill is brisk in bilateral fingers Patient's skin is warm and dry. Chest pain is denied. Respiratory: Reports cough that is non-productive, hacking, Airway is patent Respiratory effort is even, unlabored, Respiratory pattern is regular, symmetrical, Breath sounds are coarse Breath sounds are diminished in right posterior middle lobe and right posterior lower lobe. GI: Abdomen is flat, non-distended, Bowel sounds present X 4 quads. Reports diarrhea. : No signs and/or symptoms were reported regarding the genitourinary system. EENT: No signs and/or symptoms were reported regarding the EENT system. Derm: Skin is intact, is fragile, is thin, Skin is dry, Skin is pale, Skin temperature is warm Bruising that is green, yellow, on dorsal aspect of right forearm. Musculoskeletal: No deficits noted. Reports weakness in right arm, left arm, right leg and left leg. 17:00 Reassessment: Patient appears in no apparent distress at this time. awaiting radiology sg at this time Patient states symptoms have not improved. 18:25 Reassessment: Patient appears in no apparent distress at this time. lab contacted to sg obtain lactate and a blood culture, orders received after second IV start, unable to obtain blood at this time, awaiting phlebotomy for assist, will continue to monitor Patient states symptoms have not improved. 19:30 General: Appears in no apparent distress. comfortable, slender, well groomed, well ao developed, well nourished, Behavior is calm, cooperative, appropriate for age. Pain: Denies pain. Neuro: Level of Consciousness is awake, alert, obeys commands, Oriented to person, place, time, Ophthalmic Assistant are equal bilaterally Moves all extremities. Speech is normal, Facial symmetry appears normal. Cardiovascular: Heart tones S1 S2 present Capillary refill is brisk in bilateral fingers Patient's skin is warm and dry. Chest pain is denied. Respiratory: Airway is patent Respiratory effort is even, unlabored, Respiratory pattern is regular, symmetrical. GI: Abdomen is flat, non-distended, Reports diarrhea. : No signs and/or symptoms were reported regarding the genitourinary system. EENT: No signs and/or symptoms were reported regarding the EENT system. Derm: Skin is intact, is fragile, is thin, Skin is dry, Skin is pink, warm \T\ dry. normal, Skin temperature is warm Bruising that is. Musculoskeletal: Circulation, motion, and sensation intact. Range of motion: intact in all extremities. 20:30 Reassessment: Patient appears in no apparent distress at this time. Patient and/or ao family updated on plan of care and expected duration. Pain level reassessed. Patient is alert, oriented x 3, equal unlabored respirations, skin warm/dry/pink. waiting on a large IV to be started and collect BC Patient denies pain at this time. 21:40 Reassessment: Patient appears in no apparent distress at this time. Patient and/or ao family updated on plan of care and expected duration. Pain level reassessed. Patient is alert, oriented x 3, equal unlabored respirations, skin warm/dry/pink. Patient needs a larger IV. Ultrasound use with no positive outcome. Randal Gonzalez tried to do EJ X2 with no success. Patient to get an Midline. 22:30 Reassessment: Report called to DEEPIKA Epstein. Patient to be taken to her room. ao Vital Signs: 16:11 Temp 97.8; sv 16:15 BP 129 / 63; Pulse 90 MON; Resp 17 S; Pulse Ox 98% on R/A; sg 16:24 Weight 42.64 kg (R); sg 17:33 BP 95 / 46; Pulse 89; Resp 17; Pulse Ox 99% ; sv 18:30 BP 130 / 77; Pulse 92; Resp 17 S; Pulse Ox 98% on 3 lpm NC; sg 19:00 BP 136 / 89; Pulse 98; Resp 17; Pulse Ox 99% on 3 lpm NC; sg 19:30 BP 106 / 56; Pulse 98; Resp 16; Pulse Ox 99% on R/A; Pain 0/10; ao 20:30 BP 112 / 64; Pulse 98; Resp 16; Pulse Ox 96% on R/A; ao 21:30 BP 108 / 62; Pulse 97; Resp 12; Pulse Ox 95% on R/A; ao 22:28 BP 111 / 65; Pulse 90; Resp 12; Pulse Ox 95% ; Pain 0/10; ao 22:45 BP 124 / 60; Pulse 92; Resp 16; Pulse Ox 98% on 2 lpm NC; ao ED Course: 16:11 Patient arrived in ED. sg 16:11 Arm band placed on. sg 16:12 Jeff Gonzalez PA is PHCP. cp 16:12 Monico Chavez MD is Attending Physician. cp 16:12 Patient has correct armband on for positive identification. Placed in gown. Bed in low sv position. Side rails up X2. monitor and storage bin tender on. Pulse ox on. NIBP on. Door closed. Head of bed elevated. 16:13 Triage completed. sg 16:18 Gabe yKle, RN is Primary Nurse. sg 16:20 Maintain EMS IV. Dressing intact. Site clean \T\ dry. Gauge \T\ site: 22 R Hand. sg 16:[address] sg 16:44 EKG done, by ED staff, reviewed by Monico Chavez MD. sg 16:47 CT completed. Patient moved back from CT. cw1 16:49 XRAY Chest (1 view) In Process Unspecified. EDMS 16:54 CT Head Brain wo Cont In Process Unspecified. EDMS 17:25 Missed attempt(s): 24 gauge in right wrist. Bleeding controlled, band aid applied, sv catheter tip intact. 17:32 Initial lab(s) drawn, by or, sent to lab. Inserted saline lock: 24 gauge in right sv antecubital area, using aseptic technique. Blood collected. Flushed right antecubital with 5 ml normal saline. 18:43 Urine collected: straight cath specimen, lizabeth colored, Amount Returned: 140mL. dh3 19:06 Pancho Boyd DO is Hospitalizing Provider. cp 20:45 No provider procedures requiring assistance completed. Patient admitted, IV remains in ao place. Missed attempt(s): 20 gauge in right antecubital area. Ultrasound guided IV. 21:00 Missed attempt(s): 20 gauge in right in left EJ by NII Hylton. Bleeding controlled, ao band aid applied, catheter tip intact. 21:45 Inserted 18 gauge 8 cm midline to left upper brachial vein on first attempt. Line with fc good blood return and flushes well. Administered Medications: 17:43 Drug: NS 0.9% 250 ml Route: IV; Rate: bolus; Site: right antecubital; sg 19:00 Follow up: IV Status: Completed infusion; IV Intake: 250ml ao 17:43 Drug: NS 0.9% 1000 ml Route: IV; Rate: 100 ml/hr; Site: right antecubital; sg 22:50 Follow up: IV Status: Infusion continued upon admission; IV Intake: 400ml ao 19:30 Drug: Lovenox 1 mg/kg Route: Sub-Q; Site: right lower abdomen; sg 22:49 Follow up: Response: No adverse reaction ao 19:48 Drug: NS 0.9% 500 ml Route: IV; Rate: bolus; Site: right antecubital; ao 22:49 Follow up: IV Status: Completed infusion ao 19:49 Drug: Rocephin 1 grams Route: IV; Rate: bolus; Site: right antecubital; ao 20:20 Follow up: IV Status: Completed infusion; IV Intake: 10ml ao 19:49 Drug: Aspirin Chewable Tablet 324 mg Route: PO; ao 22:50 Follow up: Response: No adverse reaction ao 22:19 Drug: NS 0.9% (30 ml/kg) 30 ml/kg Route: IV; Rate: bolus; Site: left antecubital; ao 22:49 Follow up: IV Status: Completed infusion; IV Intake: 1200ml ao Intake: 19:00 IV: 250ml; Total: 250ml. ao 20:20 IV: 10ml; Total: 260ml. ao 22:49 IV: 1200ml; Total: 1460ml. ao 22:50 IV: 400ml; Total: 1860ml. ao Outcome: 19:09 Decision to Hospitalize by Provider. cp 22:42 Admitted to Tele accompanied by tech, room 404. ao 22:42 Condition: stable 22:42 Instructed on the need for admit. 22:48 Patient left the ED. ao Signatures: Dispatcher [employer] EDMS Sherine Crouch RN RN sv Gay, Steven, RN RN sg Chretien, Felicia, RN RN fc Woodley, Crystal cw1 Jeff Gonzalez PA PA cp Ortiz, Alex, RN RN Janet Torres formerly [facility] Corrections: (The following items were deleted from the chart) 16:17 16:12 Presenting complaint: EMS states: Family reports that the patient has become more sg weak over the last couple of days, pt reports decreased appetite and fatigue sg 17:44 16:20 : No signs and/or symptoms were reported regarding the genitourinary system. sg sg 17:44 16:20 Derm: Skin is intact, is fragile, is thin, Skin is dry, Skin is pale, Skin sg temperature is warm sg 22:48 22:30 BP 124 / 60; Pulse 92bpm; Resp 16bpm; Pulse Ox 98% 2 lpm Nasal Cannula; ao ao
[2018-05-27] MEDS ORDERED: NA CHLORIDE 0.9% 500 ML ONE (19:34)
[2018-05-27] MEDS ORDERED: ASPIRIN 81 MG CHEWABLE TABLET ONE (19:34)
[2018-05-27] MEDS ORDERED: CEFTRIAXONE/SWI 1gm 1 GM/10 ML SYR ONE (19:35)
--- NOTE | 2018-05-27 20:29 | P.HP ---
Certification for Inpatient Patient admitted to: Inpatient With expected LOS: >2 Midnights Practitioner: I am a practitioner with admitting privileges, knowledge of patient current condition, hospital course, and medical plan of care. Services: Services provided to patient in accordance with Admission requirements found in Title 42 Section 412.3 of the Code of Federal Regulations Patient History Date of Service: 05/27/18 Reason for admission: Weakness, acute renal injury History of Present Illness: Ms Nair is a 77-year-old woman with history of hypertension, dementia, chronic anemia, who was discharged from the rehab about 1 month ago after being recovered from a wrist fracture. According to her sister, the patient was doing okay when she was in the rehab, however after being discharge she start declining, losing weight and gravelly becoming more weak. About 2 days ago she was seen by her sister doing relatively okay. Yesterday she had even answer her phone calls. Today her sister and other went to check on her at home and follow her extremely weak. Her sister says that she has had fever today, but did not measure temperature. She also has reported episode diarrhea, that have been more pronounced in the last couple of days. At arrival the patient was BP was on the lower side 95/46, lab work remarkable for leukocytosis 18.1 K, elevated creatinine 2.8, elevated troponin I, significant elevated of BNP, elevated lactate, procalcitonin still pending. UA is abnormal consistent with UTI. EKG shows sinus tach without any ST-T abnormalities, chest-x-ray consistent with chronic fibrotic changes. Allergies No Known Allergies Allergy (Unverified 10/20/17 19:45) Home Medications: Codeine/APAP [Tylenol #3*] 1 tab PO Q6HP PRN 10/29/17 clonazePAM [Clonazepam] 1 mg PO TID 10/29/17 Lisinopril 10 mg PO DAILY #30 tablet 10/30/17 Magnesium Oxide [Mag 0X*] 400 mg PO BID #60 tab 10/30/17 Metoprolol Tartrate [Lopressor*] 25 mg PO BID 6AM 6PM #60 tab 10/30/17 - Past Medical/Surgical History Has patient received pneumonia vaccine in the past: Yes Diabetic: No -: anemia -: HTN -: Dementia -: hysterectomy -: joint replacement - Family History Family History: Reviewed- Non-Contributory - Social History Smoking Status: Former smoker Alcohol use: No CD- Drugs: No Caffeine use: Yes Place of Residence: Home Review of Systems 10-point ROS is otherwise unremarkable Physical Examination - Physical Exam General: Alert, In no apparent distress, Demented HEENT: Atraumatic, PERRLA, Mucous membr. moist/pink, EOMI, Sclerae nonicteric Neck: Supple, 2+ carotid pulse no bruit, No LAD, Without JVD or thyroid abnormality Respiratory: Diminished, Crackles/rales (Bibasilar fine crackles) Cardiovascular: Regular rate/rhythm, Normal S1 S2 Gastrointestinal: Normal bowel sounds, No tenderness Musculoskeletal: No tenderness Integumentary: No rashes Neurological: Normal speech, Normal strength at 5/5 x4 extr, Normal tone, Normal affect Lymphatics: No axilla or inguinal lymphadenopathy - Studies Laboratory Data (last 24 hrs) 05/27/18 17:30: PT 11.6, INR 0.98, APTT 32.6 05/27/18 17:30: WBC 18.1 H, Hgb 13.4, Hct 40.9, Plt Count 195 05/27/18 17:30: Sodium 136, Potassium 4.2, BUN 41 H, Creatinine 2.80 H, Glucose 99, Magnesium 2.2, Total Bilirubin 0.2, AST 39 H, ALT 10 L, Alkaline Phosphatase 89 Assessment and Plan - Problems (Diagnosis) (1) Volume depletion Current Visit: Yes Status: Acute (2) Dementia Current Visit: Yes Status: Acute Qualifiers: Dementia type: unspecified type Dementia behavioral disturbance: without behavioral disturbance Qualified Code(s): F03.90 - Unspecified dementia without behavioral disturbance (3) Failure to thrive in adult Current Visit: Yes Status: Acute (4) Elevated troponin I level Current Visit: Yes Status: Acute (5) Diarrhea Current Visit: Yes Status: Acute Qualifiers: Diarrhea type: unspecified type Qualified Code(s): R19.7 - Diarrhea, unspecified (6) UTI (urinary tract infection) Current Visit: Yes Status: Acute Qualifiers: Urinary tract infection type: acute cystitis Hematuria presence: without hematuria Qualified Code(s): N30.00 - Acute cystitis without hematuria (7) Acute renal injury Onset Date: 10/30/17 Current Visit: No Status: Acute - Plan The patient will be admitted to the hospital due to acute renal injury secondary to volume depletion in context of UTI. There is not other obvious source of infection at the moment, C diff screening is pending. Will order empiric treatment with IV Rocephin, blood and urine cultures are in process. Continue aggressive IV fluid replacement, will recheck lactate in about 4 hr. The patient will definitely benefit to be moved in at least assisted living facility upon discharge, since she is failing at home by herself. Will consult social service. - Advance Directives Does patient have a Living Will: Yes Does patient have a Durable POA for Healthcare: No - Code Status/Comfort Care Code Status Assessed: Yes Code Status: Full Code
[2018-05-27] MEDS ORDERED: NA CHLORIDE 0.9% 1,000 ML ONE (22:15)
[2018-05-27] MEDS: NA CHLORIDE 0.9% 1,000 ML IV SCH (23:22)
[2018-05-27] MEDS: ACETAMINOPHEN 500 MG TAB PO PRN (23:22)
--- NOTE | 2018-05-28 05:42 | EKG ---
Test Date: 2018-05-27 Test Time: 16:31:59 Fiber Product Cutting Machine Operator: SWG MEASUREMENT RESULTS: Intervals: Rate: 88 IL: 116 QRSD: 64 QT: 386 QTc: 467 [place]: P: 98 IL: 116 QRS: 92 T: 61 INTERPRETIVE STATEMENTS: Normal sinus rhythm vertical sxis Borderline ECG Compared to ECG 10/28/2017 17:26:25 Vertical axis now present Electronically Signed On 05-28-18 05:41:32 CDT by Sergio Mesa
[2018-05-28 07:14] LABS: Absolute Monocytes 1.5 K/uL (0.1-1.3); Absolute Neutrophil 12.2 K/uL (1.8-8.0); Basophils % 0.1 % (0-1.3); Eosinophils % 0.1 % (0-4.4); Hematocrit 29.8 % (36.0-45.0); Lymphocytes % 6.9 % (15.3-44.8); MCH 33.4 pg (27.0-35.0); MCV 100.2 fL (80-100); MPV 9.3 fL (7.6-11.3); Monocytes % 10.4 % (3.3-12.3); RBC Red Blood Cell Count 2.97 M/uL (3.86-4.86)
--- NOTE | 2018-05-28 08:31 | EKG ---
Test Date: 2018-05-27 Test Time: 16:35:49 Integration Software Engineer: SWG MEASUREMENT RESULTS: Intervals: Rate: 88 SC: 116 QRSD: 66 QT: 392 QTc: 474 [place]: P: 88 SC: 116 QRS: 86 T: 59 INTERPRETIVE STATEMENTS: Normal sinus rhythm Normal ECG Compared to ECG 05/27/2018 16:31:59 No significant changes Electronically Signed On 05-28-18 08:30:34 CDT by Sergio Mesa
[2018-05-28] MEDS: NA CHLORIDE 0.9% 1,000 ML IV SCH (08:47)
[2018-05-28] MEDS ORDERED: CEFTRIAXONE/SWI 1gm 1 GM/10 ML SYR IV SCH (09:00)
[2018-05-28] MEDS: METRONIDAZOLE 500mg IVPB 500 MG/100 ML BAG IV SCH ×2 (09:00→17:18)
[2018-05-28] MEDS: ENOXAPARIN 30 MG/0.3 ML SQ SCH (09:00)
[2018-05-28] MEDS ORDERED: CEFTRIAXONE 1 GM/NS 50 ML 1 GM/50 ML BAG IV SCH (09:00)
--- NOTE | 2018-05-28 09:45 | RAD REPORT ---
EXAM DESCRIPTION: Pearl Pa And Lat (2 Views)05/28/2018 8:49 am CLINICAL HISTORY: Fever COMPARISON: May 27, 2018 FINDINGS: The lungs are hyperaerated. The heart is mildly enlarged. Bilateral interstitial lung opacities are without obvious change. Mild patchy opacity is present the left lower lobe IMPRESSION: Mild left lower lobe pneumonia Mild additional interstitial lung opacities appear mostly chronic
--- NOTE | 2018-05-28 09:59 | P.PN ---
Subjective Date of Service: 05/28/18 Primary Care Provider: Unknown Chief Complaint: Weakness, acute renal injury Subjective: Demented, Other (Patient feeling tired. Reports of diarhea noted.) Physical Examination - Vital Signs Temperature: 98.9 F Blood Pressure: 124/60 Pulse: 88 Respirations: 18 Pulse Ox (%): 96 - Physical Exam General: Alert, In no apparent distress, Demented HEENT: Atraumatic Neck: Supple Respiratory: Crackles/rales (Mild to the LLL) Cardiovascular: Normal pulses, Regular rate/rhythm Gastrointestinal: Normal bowel sounds, Soft and benign, Non-distended, No masses , No rebound, No guarding, Tenderness (minimal pain throughout) Musculoskeletal: No erythema, No tenderness, No warmth Integumentary: No erythema, No warmth, No cyanosis Neurological: Normal speech, Normal strength at 5/5 x4 extr, Normal tone, Normal affect, Dementia - Studies Laboratory Data (last 24 hrs) 05/27/18 17:30: PT 11.6, INR 0.98, APTT 32.6 05/27/18 17:30: WBC 18.1 H, Hgb 13.4, Hct 40.9, Plt Count 195 05/27/18 17:30: Sodium 136, Potassium 4.2, BUN 41 H, Creatinine 2.80 H, Glucose 99, Magnesium 2.2, Total Bilirubin 0.2, AST 39 H, ALT 10 L, Alkaline Phosphatase 89 Medications List Reviewed: Yes Assessment & Plan - Problems (Diagnosis) (1) Pneumonia Current Visit: Yes Status: Suspected Plan: Suspect left lower lobe pneumonia. Will adjust antibiotic therapy for coverage. Patient also likely with possible UTI and enteritis. Will need to check urine culture, blood culture and stool culture. Patient being evaluated for C diff colitis. Patient with severe volume depletion with acute renal injury. Will check renal ultrasound. Continue IV fluids. Monitor chest x- ray. Will consult Nephrology to further assess renal injury. Anticipate discharge in the next 2-3 days. I will turn the service over to Dr. Villasenor tomorrow. I will go over the plan of care with her. Qualifiers: Aspiration pneumonia type: unspecified Laterality: left Lung location: lower lobe of lung (2) Volume depletion Onset Date: 05/28/18 Current Visit: Yes Status: Acute Plan: Continue IV fluids. Renal function slowly improving. Will check renal ultrasound. Likely from sepsis. (3) Dementia Onset Date: 05/28/18 Current Visit: Yes Status: Chronic Plan: Will provide medication as needed for agitation. Overall stable. Qualifiers: Dementia type: unspecified type Dementia behavioral disturbance: without behavioral disturbance Qualified Code(s): F03.90 - Unspecified dementia without behavioral disturbance (4) Failure to thrive in adult Onset Date: 05/28/18 Current Visit: Yes Status: Acute Plan: Patient presented with failure to thrive. Patient recently in inpatient rehab for wrist injury. Will continue with physical therapy. Patient will likely need home health and physical therapy at discharge. (5) Elevated troponin I level Onset Date: 05/28/18 Current Visit: Yes Status: Acute Plan: Likely from sepsis. Will monitor closely. No need for intervention at this time. Continue antibiotic treatment for sepsis. (6) Diarrhea Onset Date: 05/28/18 Current Visit: Yes Status: Acute Plan: Etiology unknown. Will check for C diff colitis. Will add Flagyl. IV antibiotic therapy adjusted. Will slowly advance diet. CT scan abdomen obtain. Qualifiers: Diarrhea type: unspecified type Qualified Code(s): R19.7 - Diarrhea, unspecified (7) UTI (urinary tract infection) Onset Date: 05/28/18 Current Visit: Yes Status: Suspected Plan: Will check urine culture. Patient on antibiotic. Antibiotics adjusted today to cover for pneumonia, enteritis and UTI.. Qualifiers: Urinary tract infection type: site unspecified Hematuria presence: without hematuria Qualified Code(s): N39.0 - Urinary tract infection, site not specified (8) Acute renal injury Onset Date: 05/28/18 Current Visit: Yes Status: Acute Plan: Likely from sepsis, dehydration. Will continue IV fluids, antibiotic therapy. Will check renal ultrasound. Will obtain renal consultation for recommendations. (9) HTN (hypertension) Onset Date: 10/30/17 Current Visit: No Status: Chronic Plan: Will hold MCKENNA-inhibitor. Will restart metoprolol but hold if systolic less than 120. Qualifiers: Hypertension type: essential hypertension Qualified Code(s): I10 - Essential (primary) hypertension (10) Anemia Onset Date: 10/30/17 Current Visit: No Status: Chronic Plan: Likely from volume depletion. Will check iron and B12 studies. Qualifiers: Anemia type: unspecified type Qualified Code(s): D64.9 - Anemia, unspecified (11) Anxiety Onset Date: 10/30/17 Current Visit: No Status: Chronic Plan: Will provide medication as needed. (12) Sepsis Current Visit: Yes Status: Suspected Plan: Suspect sepsis. Patient with elevated pro calcitonin and lactic acid upon admission. Lactic acid within normal range. Patient on IV antibiotic therapy to cover for pneumonia, UTI and possible enteritis. Await urine, stool and blood cultures. Antibiotics adjusted for pneumonia and UTI with enteritis. Discharge Plan: Home Plan to discharge in: 48 Hours (to 72 hours) Time Spent Managing Pts Care (In Minutes): 55
--- NOTE | 2018-05-28 10:00 | RAD REPORT ---
EXAM DESCRIPTION: CT - Abdomen Wo Contrast - 05/28/2018 8:48 am CLINICAL HISTORY: Sepsis, abdominal pain, diarrhea COMPARISON: None. TECHNIQUE: Axial [address] imaging of the abdomen was performed. No IV contrast was adm inistered. No oral contrast administered. All CT scans are performed using dose optimization technique as appropriate and may include automated exposure control or mA/KV adjustment according to patient size. FINDINGS: Patchy interstitial and alveolar opacities are present in the posterior left lung base. No significant right lung field finding. There is some minimal scarring and nodularity favored to be ch ronic. No pericardial effusion. The liver, spleen, and pancreas show no suspicious findings for non IV contrast imaging. Gallbladder and biliary tree are without suspicious finding. Gallstones can be occult on CT imaging. No hydronephrosis or suspicious renal mass. Isodense masses and pyelonephritis are not excluded on a non IV contrast study. No adrenal abnormality. No dilated bowel loops or bowel wall thickening. No free air, free fluid or inflammatory stranding. N o hernia, mass or bulky lymphadenopathy. Bony degenerative changes are present. Dense arterial tree calcifications are present. Exam was ordered as CT abdomen. No imaging of the pelvis performed. Exam sensitivity is decreased when no IV contrast is administered. IMPRESSION: CT abdomen imaging shows no free air, bowel obstruction or surgically emergent finding. Patchy pneumonia changes posterior left lung base. No acute abdomen or pelvis finding. Assessment is limited in the absence of oral and IV contrast.
--- NOTE | 2018-05-28 10:01 | RAD REPORT ---
EXAM DESCRIPTION: US - Renal Ultrasound-Complete - 05/28/2018 9:03 am CLINICAL HISTORY: Acute renal failure COMPARISON: May 28 CT imaging FINDINGS: The right kidney measures 10.0 x 4.1 x 3.9 cm. The left kidney measures 7.6 x 4.5 x 3.1 c m. Cortical thickness is normal. Cortical echogenicity is only slightly increased. This could be body habitus artifact or a minimal underlying medical renal disease. No hydronephrosis or suspicious ann marie l mass. No bladder wall thickening or mass. No intraluminal stone or mass. IMPRESSION: No hydronephrosis or suspicious renal mass. Minimal increase in renal cortical echogenicity could be body habitus artifact or mild medical renal disease.
[2018-05-28] MEDS: NACHLORIDE 0.45% 1,000 ML IV SCH ×2 (11:00→22:31)
[2018-05-28] MEDS: Levofloxacin 250mg IV 250 MG/50 ML BAG IV SCH (12:45)
[2018-05-28 16:19] LABS: Hematocrit 29.3 % (36.0-45.0)
[2018-05-28] MEDS: METOPROLOL TAR 25 MG TAB PO SCH (17:18)
[2018-05-28] MEDS: CODEINE 30MG/APAP 300MG TAB PO PRN (17:18)
[2018-05-28 18:08] LABS: Ferritin 98.9 ng/mL (8-388); Thyroid Stimulating Hormone 0.41 uIU/mL (0.36-3.74)
--- NOTE | 2018-05-28 19:54 | P.CNS ---
Date of Consult: 05/28/18 Reason for Consult: SUSAN Requesting Physician: Pancho Boyd Primary Care Provider: Unknown Chief Complaint: Weakness, acute renal injury History of Present Illness: 77 yo WF HTN, Anemia presented to the ER with moderate, progressive, diffuse weakness with associated diarrhea. Weight loss and anorexia. Recent health care facility discharge. No alleviating fx. Limited IH/ ROS due to dementia. Ms Nair is a 77-year-old woman with history of hypertension, dementia, chronic anemia, who was discharged from the rehab about 1 month ago after being recovered from a wrist fracture. According to her sister, the patient was doing okay when she was in the rehab, however after being discharge she start declining, losing weight and gravelly becoming more weak. About 2 days ago she was seen by her sister doing relatively okay. Yesterday she had even answer her phone calls. Today her sister and other went to check on her at home and follow her extremely weak. Her sister says that she has had fever today, but did not measure temperature. She also has reported episode diarrhea, that have been more pronounced in the last couple of days. At arrival the patient was BP was on the lower side 95/46, lab work remarkable for leukocytosis 18.1 K, elevated creatinine 2.8, elevated troponin I, significant elevated of BNP, elevated lactate, procalcitonin still pending. UA is abnormal consistent with UTI. EKG shows sinus tach without any ST-T abnormalities, chest-x-ray consistent with chronic fibrotic changes. 16:21 This 77 yrs old Female presents to ER via EMS with complaints of General cp Weakness. Allergies No Known Allergies Allergy (Unverified 10/20/17 19:45) Home medications list reviewed: Yes Home Medications: Codeine/APAP [Tylenol #3*] 1 tab PO Q6HP PRN 10/29/17 clonazePAM [Clonazepam] 1 mg PO TID 10/29/17 Lisinopril 10 mg PO DAILY #30 tablet 10/30/17 Metoprolol Tartrate [Lopressor*] 25 mg PO BID 6AM 6PM #60 tab 10/30/17 - Past Medical/Surgical History Diabetic: No -: anemia -: HTN -: Dementia -: hysterectomy -: joint replacement - Family History Mother Medical History: Lung disease Father Medical History: Stroke - Social History Smoking Status: Unknown if ever smoked Alcohol use: No CD- Drugs: No Caffeine use: No Place of Residence: Home Review of Systems 10-point ROS is otherwise unremarkable General: Weakness, Malaise Gastrointestinal: Diarrhea Physical Examination Temp Pulse Resp BP Pulse Ox 98.1 F 93 H 17 138/62 97 05/28/18 16:00 05/28/18 17:18 05/28/18 16:00 05/28/18 17:18 05/28/18 16:00 General: Alert, In no apparent distress, Cooperative HEENT: Normocephalic Neck: Supple Respiratory: Clear to auscultation bilaterally Cardiovascular: No edema, Regular rate/rhythm, No rubs Gastrointestinal: Soft and benign, Non-distended, No guarding Musculoskeletal: No clubbing, No contractures Integumentary: No rashes, No cyanosis Neurological: Normal speech Blood work reviewed in the chart. Hgb 9.5; Cr 2.8 Imagings Data: Reason for Exam: Acute renal failure Report Status: Signed EXAM DESCRIPTION: US - Renal Ultrasound-Complete - 05/28/2018 9:03 am CLINICAL HISTORY: Acute renal failure COMPARISON: May 28 CT imaging FINDINGS: The right kidney measures 10.0 x 4.1 x 3.9 cm. The left kidney measures 7.6 x 4.5 x 3.1 cm. Cortical thickness is normal. Cortical echogenicity is only slightly increased. This could be body habitus artifact or a minimal underlying medical renal disease. No hydronephrosis or suspicious renal mass. No bladder wall thickening or mass. No intraluminal stone or mass. IMPRESSION: No hydronephrosis or suspicious renal mass. Minimal increase in renal cortical echogenicity could be body habitus artifact or mild medical renal disease. EXAM DESCRIPTION: CT - Abdomen Wo Contrast - 05/28/2018 8:48 am CLINICAL HISTORY: Sepsis, abdominal pain, diarrhea COMPARISON: None. TECHNIQUE: Axial [address] imaging of the abdomen was performed. No IV contrast was administered. No oral contrast administered. All CT scans are performed using dose optimization technique as appropriate and may include automated exposure control or mA/KV adjustment according to patient size. FINDINGS: Patchy interstitial and alveolar opacities are present in the posterior left lung base. No significant right lung field finding. There is some minimal scarring and nodularity favored to be chronic. No pericardial effusion. The liver, spleen, and pancreas show no suspicious findings for non IV contrast imaging. Gallbladder and biliary tree are without suspicious finding. Gallstones can be occult on CT imaging. No hydronephrosis or suspicious renal mass. Isodense masses and pyelonephritis are not excluded on a non IV contrast study. No adrenal abnormality. No dilated bowel loops or bowel wall thickening. No free air, free fluid or inflammatory stranding. No hernia, mass or bulky lymphadenopathy. Bony degenerative changes are present. Dense arterial tree calcifications are present. Exam was ordered as CT abdomen. No imaging of the pelvis performed. Exam sensitivity is decreased when no IV contrast is administered. IMPRESSION: CT abdomen imaging shows no free air, bowel obstruction or surgically emergent finding. Patchy pneumonia changes posterior left lung base. No acute abdomen or pelvis finding. Assessment is limited in the absence of oral and IV contrast. Conclusions/Impression: A/ SUSAN likely due to hypovolemia. Acidosis in the setting of diarrhea/ SUSAN. Hypocalcemia. Anemia in chronic illness. Iron deficiency. LLL PNA. Dementia. P/ Continue current POC and Medications. Agree with IVF. Start Vitamin D. Consider IV iron. Agree with abx. No NSAIDs. AM labs. Daily weight. Thank you kindly for the consultation.
[2018-05-28] MEDS: clonazePAM 0.5 MG TAB PO PRN (22:30)
[2018-05-29] MEDS: METRONIDAZOLE 500mg IVPB 500 MG/100 ML BAG IV SCH ×3 (00:12→17:17)
[2018-05-29] MEDS: METOPROLOL TAR 25 MG TAB PO SCH ×2 (05:45→17:16)
[2018-05-29] MEDS: PANTOPRAZOLE 40MG TABLET PO SCH (05:46)
[2018-05-29] MEDS: CODEINE 30MG/APAP 300MG TAB PO PRN ×2 (05:46→17:17)
[2018-05-29 06:10] LABS: Urine Appearance CLEAR; Urine Bilirubin NEGATIVE (NEG); Urine Blood TRACE (NEG); Urine Color YELLOW; Urine Glucose NEGATIVE (NEG); Urine Protein 1+ (NEG); Urine Urobilinogen 0.2 mg/dL (0.2-1.0); Urine pH 5.5 (5.0-7.0)
[2018-05-29 06:22] LABS: Urine Bacteria <20 /HPF (<20); Urine Culture Reflex Order NOT NEEDED; Urine RBC <5 /HPF (NONE SEEN)
[2018-05-29 06:28] LABS: UR MICROALBUMIN 3.8 mg/dL (< 1.9)
[2018-05-29 06:31] LABS: Absolute Lymphocytes (CBC) 1.6 K/uL (0.7-4.9); Absolute Monocytes 1.7 K/uL (0.1-1.3); Basophils % 0.2 % (0-1.3); Eosinophils % 0.2 % (0-4.4); Hematocrit 31.3 % (36.0-45.0); Lymphocytes % 9.8 % (15.3-44.8); MCH 33.7 pg (27.0-35.0); MCV 101.2 fL (80-100); MPV 9.2 fL (7.6-11.3); Monocytes % 10.6 % (3.3-12.3); RBC Red Blood Cell Count 3.09 M/uL (3.86-4.86)
[2018-05-29 06:44] LABS: Magnesium 1.8 mg/dL (1.8-2.4); Potassium 4.2 mmol/L (3.5-5.1)
[2018-05-29] MEDS: NACHLORIDE 0.45% 1,000 ML IV SCH ×3 (07:00→23:11)
[2018-05-29] MEDS ORDERED: MAGNESIUM SULFATE 1 gm IVPB 1 GM/100 ML BAG IV ONE (09:00)
[2018-05-29] MEDS: Levofloxacin 250mg IV 250 MG/50 ML BAG IV SCH (09:05)
[2018-05-29] MEDS: VITAMIN D 5,000 UNIT CAP PO SCH (09:06)
[2018-05-29] MEDS: CALCITROL 0.25 MCG CAP PO SCH (09:06)
[2018-05-29] MEDS: ENOXAPARIN 30 MG/0.3 ML SQ SCH (09:06)
--- NOTE | 2018-05-29 11:41 | ECHO ---
HEIGHT: 5 ft 2 in WEIGHT: 82 lb 12.8 oz DATE OF STUDY: 05/29/[address]: Pancho Boyd DO 2-DIMENSIONAL: YES M.MODE: YES DOPPLER: YES COLOR FLOW: YES TDS: NO PORTABLE: NO DEFINITY: NO BUBBLE STUDY: NO DIAGNOSIS: ELEVATED TROPONIN LIKELY FROM SEPSIS CARDIAC HISTORY: CATHERIZATION: NO SURGERY: NO PROSTHETIC VALVE: NO PACEMAKER: NO MEASUREMENTS (cm) DIASTOLIC (NORMALS) SYSTOLIC (NORMALS) IVSd 1.1 (0.6-1.2) LA Diam 3.1 (1.9-4.0) LVEF 80% LVIDd 3.7 (3.5-5.7) LVIDs 1.9 (2.0-3.5) %FS 48% LVPWd 1.1 (0.6-1.2) Ao Diam 2.6 (2.0-3.7) 2 DIMENSIONAL ASSESSMENT: RIGHT ATRIUM: NORMAL LEFT ATRIUM: NORMAL RIGHT VENTRICLE: NORMAL LEFT VENTRICLE: NORMAL TRICUSPID VALVE: NORMAL MITRAL VALVE: MILD MITRAL VALVE PROLAPSE PULMONIC VALVE: NORMAL AORTIC VALVE: NORMAL PERICARDIAL EFFUSION: NONE AORTIC ROOT: NORMAL LEFT VENTRICULAR WALL MOTION: NORMAL DOPPLER/COLOR FLOW: MILD MITRAL AND TRICUSPID REGURGITATION. MILD PULMONARY HYPERTENSION. ESTIMATED RIGHT VENTRICULAR SYSTOLIC PRESSURE 42mmHg. COMMENTS: NORMAL LEFT VENTRICULAR EJECTION FRACTION. MILD MITRAL VALVE PROLAPSE. MILD MITRAL AND TRICUSPID REGURGITATION. MILD PULMONARY HYPERTENSION. TECHNOLOGIST: Neftali SANTOS
[2018-05-29] MEDS: ACETAMINOPHEN 500 MG TAB PO PRN ×2 (12:24→22:58)
[2018-05-29] MEDS: ONDANSETRON 4 MG/2 ML VIAL IV PRN (12:33)
--- NOTE | 2018-05-29 16:11 | P.PN ---
Subjective Date of Service: 05/29/18 Primary Care Provider: Unknown Chief Complaint: Weakness, acute renal injury Patient seen and examined at bedside with RN. Chart reviewed. Case discussed with cardiology. No complaints to offer overnight. Currently getting echocardiogram at bedside Review of Systems General: As per HPI Physical Examination - Vital Signs Temperature: 98.0 F Blood Pressure: 118/54 Pulse: 80 Respirations: 18 Pulse Ox (%): 86 - Physical Exam General: Alert, Cachectic, Demented HEENT: Atraumatic Neck: Supple, JVD not distended Respiratory: Clear to auscultation bilaterally, Normal air movement Cardiovascular: Regular rate/rhythm, Normal S1 S2 Gastrointestinal: Normal bowel sounds, No tenderness Musculoskeletal: No tenderness Integumentary: No rashes Neurological: Normal affect, Dementia Lymphatics: No axilla or inguinal lymphadenopathy - Studies Medications List Reviewed: Yes Assessment & Plan - Problems (Diagnosis) (1) Sepsis Current Visit: Yes Status: Suspected Plan: Sepsis most likely 2.2 to PNA vs Enteritis vs UTI -Currently on levaquin and flagyl. -WBC elevated today most likely reactive 2.2 to Steroids -Blood Culture, urine culture and stool culture pending at this time. -Will f.u Qualifiers: Sepsis type: sepsis due to unspecified organism Qualified Code(s): A41.9 - Sepsis, unspecified organism (2) Pneumonia Current Visit: Yes Status: Suspected Plan: Suspected PNA. -Elevated procal, Lactic acid and white count -Iv levaquin and Flagyl for now -Will repeat Xray in the Am Qualifiers: Aspiration pneumonia type: unspecified Laterality: left Lung location: lower lobe of lung (3) UTI (urinary tract infection) Onset Date: 05/28/18 Current Visit: Yes Status: Suspected Plan: Acute UTI -Urine culture pending Qualifiers: Urinary tract infection type: acute cystitis Hematuria presence: without hematuria Qualified Code(s): N30.00 - Acute cystitis without hematuria (4) Enteritis Current Visit: Yes Status: Acute Plan: -Cdiff culture pending. -No Diarrhea Overnight -Will continue ABX till culture negative (5) Acute renal injury Onset Date: 05/28/18 Current Visit: Yes Status: Acute Plan: Most Likely 2.2 to Dehydration 2.2 to Dementia vs FTT -IV fluids for now -BUN.CR improving today (6) Failure to thrive in adult Onset Date: 05/28/18 Current Visit: Yes Status: Acute Plan: Dietary Consulted. -Awaiting results (7) HTN (hypertension) Onset Date: 10/30/17 Current Visit: No Status: Chronic Qualifiers: Hypertension type: essential hypertension Qualified Code(s): I10 - Essential (primary) hypertension Discharge Plan: Fpc Plan to discharge in: 72 Hours - Code Status/Comfort Care Code Status Assessed: Yes Critical Care: No
--- NOTE | 2018-05-29 21:13 | P.PN ---
Date of Service: 05/29/18 Vital Signs Temp Pulse Resp BP Pulse Ox 97.7 F 77 16 145/61 H 98 05/29/18 20:00 05/29/18 20:00 05/29/18 20:00 05/29/18 20:00 05/29/18 20:00 Medications Acetaminophen (Tylenol -Extra Strength) 500 mg PO Q4HP PRN PRN Reason: [id number] Stop: 06/26/18 22:48 Last Admin: 05/29/18 12:24 Dose: 500 mg Acetaminophen/Codeine Phosphate (Tylenol W/Codeine #3 Tab) 1 tab PO Q6H PRN PRN Reason: PAIN MILD TO MODERATE Stop: 06/27/18 16:01 Last Admin: 05/29/18 17:17 Dose: 1 tab Calcitriol (Rocaltrol) 0.5 mcg PO DAILY [facility] Stop: 06/28/18 09:01 Last Admin: 05/29/18 09:06 Dose: 0.5 mcg Cholecalciferol (Vitamin D 5,000 Iu Cap) 5,000 unit PO DAILY [facility] Stop: 06/28/18 09:01 Last Admin: 05/29/18 09:06 Dose: 5,000 unit Clonazepam (Klonopin) 0.5 mg PO TID PRN PRN Reason: AGITATION/ANXIETY Stop: 06/27/18 14:01 Last Admin: 05/28/18 22:30 Dose: 0.5 mg Enoxaparin Sodium (Lovenox 30 Mg Inj) 30 mg SQ DAILY [facility] Stop: 06/27/18 09:01 Last Admin: 05/29/18 09:06 Dose: 30 mg Metronidazole/Sodium Chloride (Flagyl 500mg/100 Ml Iv Premix) 500 mg in 100 mls @ 200 mls/hr IV Q8HR [facility]; Protocol Stop: 06/27/18 09:01 Last Admin: 05/29/18 17:17 Dose: 100 mls Levofloxacin/Dextrose (Levaquin 250mg/50 Ml Ivpb) 250 mg in 50 mls @ 50 mls/hr IV Q24H [facility]; Protocol Stop: 06/27/18 10:01 Last Admin: 05/29/18 09:05 Dose: 50 mls Sodium Chloride (Sodium Chloride 0.45%) 1,000 mls @ 100 mls/hr IV .Q10H [facility] Stop: 06/27/18 11:01 Last Admin: 05/29/18 17:00 Dose: Not Given Metoprolol Tartrate (Lopressor) 25 mg PO BID 6AM 6PM [facility] Stop: 06/27/18 18:01 Last Admin: 05/29/18 17:16 Dose: 25 mg Nutritional Formula (Ensure Enlive) 237 ml PO BID [facility] Stop: 06/28/18 21:01 Ondansetron HCl (Zofran) 4 mg IV Q6HP PRN PRN Reason: NAUSEA / VOMITING Stop: 06/26/18 22:48 Last Admin: 05/29/18 12:33 Dose: 4 mg Pantoprazole Sodium (Protonix Tab) 40 mg PO DAILYAC [facility] Stop: 06/28/18 06:31 Last Admin: 05/29/18 05:46 Dose: 40 mg Sodium Chloride (Normal Saline Flush) 10 ml IV BID [facility] Stop: 06/26/18 22:48 Last Admin: 05/29/18 09:07 Dose: 10 ml Assessment/ Plan: Nephrology. Weakness and malaise. CPS stable without CP or SOB. No acute events overnight. Vitals, medications, blood work and imaging reviewed in the chart. General: Alert, In no apparent distress, Cooperative HEENT: Normocephalic Neck: Supple Respiratory: Clear to auscultation bilaterally Cardiovascular: No edema, Regular rate/rhythm, No rubs Gastrointestinal: Soft and benign, Non-distended, No guarding Musculoskeletal: No clubbing, No contractures Integumentary: No rashes, No cyanosis Neurological: Normal speech Blood work reviewed in the chart. Hgb 9.5; Cr 2.8 Imagings Data: Reason for Exam: Acute renal failure Report Status: Signed EXAM DESCRIPTION: US - Renal Ultrasound-Complete - 05/28/2018 9:03 am CLINICAL HISTORY: Acute renal failure COMPARISON: May 28 CT imaging FINDINGS: The right kidney measures 10.0 x 4.1 x 3.9 cm. The left kidney measures 7.6 x 4.5 x 3.1 cm. Cortical thickness is normal. Cortical echogenicity is only slightly increased. This could be body habitus artifact or a minimal underlying medical renal disease. No hydronephrosis or suspicious renal mass. No bladder wall thickening or mass. No intraluminal stone or mass. IMPRESSION: No hydronephrosis or suspicious renal mass. Minimal increase in renal cortical echogenicity could be body habitus artifact or mild medical renal disease. EXAM DESCRIPTION: CT - Abdomen Wo Contrast - 05/28/2018 8:48 am CLINICAL HISTORY: Sepsis, abdominal pain, diarrhea COMPARISON: None. TECHNIQUE: Axial [address] imaging of the abdomen was performed. No IV contrast was administered. No oral contrast administered. All CT scans are performed using dose optimization technique as appropriate and may include automated exposure control or mA/KV adjustment according to patient size. FINDINGS: Patchy interstitial and alveolar opacities are present in the posterior left lung base. No significant right lung field finding. There is some minimal scarring and nodularity favored to be chronic. No pericardial effusion. The liver, spleen, and pancreas show no suspicious findings for non IV contrast imaging. Gallbladder and biliary tree are without suspicious finding. Gallstones can be occult on CT imaging. No hydronephrosis or suspicious renal mass. Isodense masses and pyelonephritis are not excluded on a non IV contrast study. No adrenal abnormality. No dilated bowel loops or bowel wall thickening. No free air, free fluid or inflammatory stranding. No hernia, mass or bulky lymphadenopathy. Bony degenerative changes are present. Dense arterial tree calcifications are present. Exam was ordered as CT abdomen. No imaging of the pelvis performed. Exam sensitivity is decreased when no IV contrast is administered. IMPRESSION: CT abdomen imaging shows no free air, bowel obstruction or surgically emergent finding. Patchy pneumonia changes posterior left lung base. No acute abdomen or pelvis finding. Assessment is limited in the absence of oral and IV contrast. Conclusions/Impression: A/ SUSAN likely due to hypovolemia. Acidosis in the setting of diarrhea/ SUSAN. Hypocalcemia. Anemia in chronic illness. Iron deficiency. LLL PNA. Dementia. P/ Continue current POC and Medications. Agree with IVF. Replete PO4. Give IV iron. Agree with abx. No NSAIDs. AM labs. Daily weight.
[2018-05-29] MEDS ORDERED: POTASS/SODIUM PHOSPHATE 1 PKT POWD.PACK PO ONE (21:15)
[2018-05-29] MEDS: BENZONATATE 100 MG CAP PO PRN (22:57)
[2018-05-29] MEDS: ENSURE ENLIVE 237 ML CAN PO SCH (23:01)
[2018-05-29] MEDS: clonazePAM 0.5 MG TAB PO PRN (23:49)
[2018-05-30] MEDS: METRONIDAZOLE 500mg IVPB 500 MG/100 ML BAG IV SCH ×3 (00:48→17:02)
[2018-05-30] MEDS: NACHLORIDE 0.45% 1,000 ML IV SCH ×3 (03:00→12:58)
[2018-05-30 05:42] LABS: Absolute Lymphocytes (CBC) 1.3 K/uL (0.7-4.9); Absolute Monocytes 1.7 K/uL (0.1-1.3); Absolute Neutrophil 9.5 K/uL (1.8-8.0); Basophils % 0.1 % (0-1.3); Eosinophils % 1.7 % (0-4.4); Hematocrit 32.5 % (36.0-45.0); Lymphocytes % 10.1 % (15.3-44.8); MCH 32.8 pg (27.0-35.0); MCV 100.9 fL (80-100); MPV 8.8 fL (7.6-11.3); Monocytes % 13.4 % (3.3-12.3); RBC Red Blood Cell Count 3.22 M/uL (3.86-4.86)
[2018-05-30 05:51] LABS: Magnesium 2.1 mg/dL (1.8-2.4); Phosphorus 2.4 mg/dL (2.5-4.9); Uric Acid 6.4 mg/dL (2.6-6.0)
[2018-05-30] MEDS: PANTOPRAZOLE 40MG TABLET PO SCH (05:57)
[2018-05-30] MEDS: METOPROLOL TAR 25 MG TAB PO SCH ×2 (05:57→18:04)
[2018-05-30] MEDS: ENSURE ENLIVE 237 ML CAN PO SCH ×4 (09:00→21:13)
[2018-05-30] MEDS: CALCITROL 0.25 MCG CAP PO SCH (09:08)
[2018-05-30] MEDS: VITAMIN D 5,000 UNIT CAP PO SCH (09:08)
[2018-05-30] MEDS: BENZONATATE 100 MG CAP PO PRN ×2 (09:08→15:36)
[2018-05-30] MEDS: ENOXAPARIN 30 MG/0.3 ML SQ SCH (09:08)
[2018-05-30] MEDS: Levofloxacin 250mg IV 250 MG/50 ML BAG IV SCH (10:39)
--- NOTE | 2018-05-30 11:52 | RAD REPORT ---
EXAM DESCRIPTION: [facility] Single View05/30/2018 11:35 am CLINICAL HISTORY: Chest pain COMPARISON: May 28, 2018 FINDINGS: There has been worsening in left lung opacities. Additional interstitial lung opacities b ilaterally have mildly progressed The heart is mildly enlarged IMPRESSION: Worsening in left lung opacities which probably represent pneumonia Mild worsening in bilateral interstitial lung opacities likely representing mild interstitial pulmona ry edema superimposed over chronic changes
[2018-05-30] MEDS: ACETAMINOPHEN 500 MG TAB PO PRN (12:53)
--- NOTE | 2018-05-30 13:27 | P.PN ---
Subjective Date of Service: 05/30/18 Primary Care Provider: Unknown Chief Complaint: Weakness, acute renal injury Patient seen and examined at bedside with RN. Chart reviewed. Case discussed With Nephrology. No complaints to offer overnight. No complaints to offer this AM Xray of the chest pending at thsi time Review of Systems General: As per HPI Physical Examination - Vital Signs Temperature: 97.5 F Blood Pressure: 177/70 Pulse: 88 Respirations: 17 Pulse Ox (%): 94 - Physical Exam General: Alert, In no apparent distress, Cachectic HEENT: Atraumatic, PERRLA, EOMI Neck: Supple, JVD not distended Respiratory: Normal air movement, Inspiratory wheezes, Rhonchi/gurgles Cardiovascular: Regular rate/rhythm, Normal S1 S2 Gastrointestinal: Normal bowel sounds, No tenderness Musculoskeletal: No tenderness Integumentary: No rashes Neurological: Normal speech, Normal tone, Normal affect Lymphatics: No axilla or inguinal lymphadenopathy - Studies Medications List Reviewed: Yes Assessment & Plan - Problems (Diagnosis) (1) Sepsis Current Visit: Yes Status: Suspected Plan: Sepsis most likely 2.2 to PNA vs Enteritis vs UTI -Urine Culture + for MRSA. -Stool culture and blood culture pending -Switched to Doxycycline and Flagyl for now -hemodynmically stable Qualifiers: Sepsis type: sepsis due to unspecified organism Qualified Code(s): A41.9 - Sepsis, unspecified organism (2) Pneumonia Current Visit: Yes Status: Suspected Plan: Suspected PNA. -Elevated procal, Lactic acid and white count -Cxray today with Worsening of the PNA on the left. -On doxycycline. -Will consult Pulmonology Qualifiers: Aspiration pneumonia type: unspecified Laterality: left Lung location: lower lobe of lung (3) UTI (urinary tract infection) Onset Date: 05/28/18 Current Visit: Yes Status: Acute Plan: Acute UTI -Urine culture + MRSA Qualifiers: Urinary tract infection type: acute cystitis Hematuria presence: without hematuria Qualified Code(s): N30.00 - Acute cystitis without hematuria (4) Enteritis Current Visit: Yes Status: Acute Plan: -Cdiff culture pending. -No Diarrhea Overnight -Will continue ABX till culture negative (5) Acute renal injury Onset Date: 05/28/18 Current Visit: Yes Status: Acute Plan: Most Likely 2.2 to Dehydration 2.2 to Dementia vs FTT -IV fluids for now -BUN.CR improving today (6) Failure to thrive in adult Onset Date: 05/28/18 Current Visit: Yes Status: Acute Plan: Dietary Consulted. (7) HTN (hypertension) Onset Date: 10/30/17 Current Visit: No Status: Chronic Qualifiers: Hypertension type: essential hypertension Qualified Code(s): I10 - Essential (primary) hypertension Discharge Plan: Half-Way Plan to discharge in: 72 Hours - Code Status/Comfort Care Code Status Assessed: Yes Critical Care: No
[2018-05-30] MEDS: clonazePAM 0.5 MG TAB PO PRN (17:01)
[2018-05-30] MEDS: CODEINE 30MG/APAP 300MG TAB PO PRN (17:01)
--- NOTE | 2018-05-30 18:56 | P.PN ---
Date of Service: 05/30/18 Vital Signs Temp Pulse Resp BP Pulse Ox 97.5 F 72 17 154/70 H 94 05/30/18 13:28 05/30/18 18:07 05/30/18 13:28 05/30/18 18:07 05/30/18 13:28 Medications Acetaminophen (Tylenol -Extra Strength) 500 mg PO Q4HP PRN PRN Reason: [id number] Stop: 06/26/18 22:48 Last Admin: 05/30/18 12:53 Dose: 500 mg Acetaminophen/Codeine Phosphate (Tylenol W/Codeine #3 Tab) 1 tab PO Q6H PRN PRN Reason: PAIN MILD TO MODERATE Stop: 06/27/18 16:01 Last Admin: 05/30/18 17:01 Dose: 1 tab Benzonatate (Tessalon Perle) 200 mg PO TID PRN PRN Reason: COUGH Stop: 06/28/18 22:01 Last Admin: 05/30/18 15:36 Dose: 200 mg Calcitriol (Rocaltrol) 0.5 mcg PO DAILY [facility] Stop: 06/28/18 09:01 Last Admin: 05/30/18 09:08 Dose: 0.5 mcg Cholecalciferol (Vitamin D 5,000 Iu Cap) 5,000 unit PO DAILY [facility] Stop: 06/28/18 09:01 Last Admin: 05/30/18 09:08 Dose: 5,000 unit Clonazepam (Klonopin) 0.5 mg PO TID PRN PRN Reason: AGITATION/ANXIETY Stop: 06/27/18 14:01 Last Admin: 05/30/18 17:01 Dose: 0.5 mg Doxycycline Monohydrate (Vibramycin) 100 mg PO BID [facility]; Protocol Stop: 06/29/18 21:01 Enoxaparin Sodium (Lovenox 30 Mg Inj) 30 mg SQ DAILY [facility] Stop: 06/27/18 09:01 Last Admin: 05/30/18 09:08 Dose: 30 mg Metronidazole/Sodium Chloride (Flagyl 500mg/100 Ml Iv Premix) 500 mg in 100 mls @ 200 mls/hr IV Q8HR [facility]; Protocol Stop: 06/27/18 09:01 Last Admin: 05/30/18 17:02 Dose: 100 mls Ferric Sodium Gluconate Complex 125 mg/ Sodium Chloride 260 mls @ 130 mls/hr IV ONCE ONE Stop: 05/30/18 21:16 Ferric Sodium Gluconate Complex 125 mg/ Sodium Chloride 110 mls @ 100 mls/hr IV ONCE ONE Stop: 05/31/18 20:05 Metoprolol Tartrate (Lopressor) 25 mg PO BID 6AM 6PM [facility] Stop: 06/27/18 18:01 Last Admin: 05/30/18 18:04 Dose: 25 mg Nutritional Formula (Ensure Enlive) 237 ml PO BID [facility] Stop: 06/28/18 21:01 Last Admin: 05/30/18 09:00 Dose: Not Given Ondansetron HCl (Zofran) 4 mg IV Q6HP PRN PRN Reason: NAUSEA / VOMITING Stop: 06/26/18 22:48 Last Admin: 05/29/18 12:33 Dose: 4 mg Pantoprazole Sodium (Protonix Tab) 40 mg PO DAILYAC [facility] Stop: 06/28/18 06:31 Last Admin: 05/30/18 05:57 Dose: 40 mg Potassium Phos/Sodium Phos (Neutra-Phos Pwd) 2 pkt PO ONCE ONE Stop: 05/30/18 19:01 Sodium Chloride (Normal Saline Flush) 10 ml IV BID [facility] Stop: 06/26/18 22:48 Last Admin: 05/30/18 09:00 Dose: Not Given Assessment/ Plan: Nephrology. Weakness and malaise. CPS stable without CP or SOB. No acute events overnight. Vitals, medications, blood work and imaging reviewed in the chart. General: Alert, In no apparent distress, Cooperative HEENT: Normocephalic Neck: Supple Respiratory: Clear to auscultation bilaterally Cardiovascular: No edema, Regular rate/rhythm, No rubs Gastrointestinal: Soft and benign, Non-distended, No guarding Musculoskeletal: No clubbing, No contractures Integumentary: No rashes, No cyanosis Neurological: Normal speech Blood work reviewed in the chart. Hgb 9.5; Cr 2.8 Imagings Data: Reason for Exam: Acute renal failure Report Status: Signed EXAM DESCRIPTION: US - Renal Ultrasound-Complete - 05/28/2018 9:03 am CLINICAL HISTORY: Acute renal failure COMPARISON: May 28 CT imaging FINDINGS: The right kidney measures 10.0 x 4.1 x 3.9 cm. The left kidney measures 7.6 x 4.5 x 3.1 cm. Cortical thickness is normal. Cortical echogenicity is only slightly increased. This could be body habitus artifact or a minimal underlying medical renal disease. No hydronephrosis or suspicious renal mass. No bladder wall thickening or mass. No intraluminal stone or mass. IMPRESSION: No hydronephrosis or suspicious renal mass. Minimal increase in renal cortical echogenicity could be body habitus artifact or mild medical renal disease. EXAM DESCRIPTION: CT - Abdomen Wo Contrast - 05/28/2018 8:48 am CLINICAL HISTORY: Sepsis, abdominal pain, diarrhea COMPARISON: None. TECHNIQUE: Axial [address] imaging of the abdomen was performed. No IV contrast was administered. No oral contrast administered. All CT scans are performed using dose optimization technique as appropriate and may include automated exposure control or mA/KV adjustment according to patient size. FINDINGS: Patchy interstitial and alveolar opacities are present in the posterior left lung base. No significant right lung field finding. There is some minimal scarring and nodularity favored to be chronic. No pericardial effusion. The liver, spleen, and pancreas show no suspicious findings for non IV contrast imaging. Gallbladder and biliary tree are without suspicious finding. Gallstones can be occult on CT imaging. No hydronephrosis or suspicious renal mass. Isodense masses and pyelonephritis are not excluded on a non IV contrast study. No adrenal abnormality. No dilated bowel loops or bowel wall thickening. No free air, free fluid or inflammatory stranding. No hernia, mass or bulky lymphadenopathy. Bony degenerative changes are present. Dense arterial tree calcifications are present. Exam was ordered as CT abdomen. No imaging of the pelvis performed. Exam sensitivity is decreased when no IV contrast is administered. IMPRESSION: CT abdomen imaging shows no free air, bowel obstruction or surgically emergent finding. Patchy pneumonia changes posterior left lung base. No acute abdomen or pelvis finding. Assessment is limited in the absence of oral and IV contrast. Conclusions/Impression: A/ SUSAN likely due to hypovolemia. Acidosis in the setting of diarrhea/ SUSAN. Hypocalcemia. Anemia in chronic illness. Iron deficiency. LLL PNA. Dementia. P/ Continue current POC and Medications. IVF as needed. Replete PO4. Give IV iron. Agree with abx. Encourage nutrition. No NSAIDs. AM labs. Daily weight.
[2018-05-30] MEDS ORDERED: POTASS/SODIUM PHOSPHATE 1 PKT POWD.PACK PO ONE (19:00)
[2018-05-30] MEDS: DOXYCYCLINE 100 MG CAP PO SCH ×2 (21:00→21:12)
[2018-05-30] MEDS ORDERED: SOD FERRIC GLUC COMPLX/SUCROSE 125 MG in NA CHLORIDE 0.9% 250 ML IV ONE (21:15)
[2018-05-31] MEDS: METRONIDAZOLE 500mg IVPB 500 MG/100 ML BAG IV SCH ×3 (00:17→16:59)
[2018-05-31] MEDS: ACETAMINOPHEN 500 MG TAB PO PRN ×3 (04:24→21:35)
[2018-05-31] MEDS: METOPROLOL TAR 25 MG TAB PO SCH ×2 (05:23→18:07)
[2018-05-31] MEDS: PANTOPRAZOLE 40MG TABLET PO SCH (05:23)
[2018-05-31 05:53] LABS: Absolute Monocytes 1.6 K/uL (0.1-1.3); Absolute Neutrophil 9.3 K/uL (1.8-8.0); Basophils % 0.1 % (0-1.3); Eosinophils % 0.8 % (0-4.4); Hematocrit 33.1 % (36.0-45.0); Lymphocytes % 8.1 % (15.3-44.8); MCH 32.9 pg (27.0-35.0); MCV 100.1 fL (80-100); MPV 8.2 fL (7.6-11.3); Monocytes % 13.4 % (3.3-12.3); RBC Red Blood Cell Count 3.31 M/uL (3.86-4.86)
[2018-05-31 06:10] LABS: BUN Blood Urea Nitrogen 12 mg/dL (7-18); Bicarbonate 24 mmol/L (21-32); Glucose Level 113 mg/dL (74-106); Magnesium 1.5 mg/dL (1.8-2.4); Potassium 3.8 mmol/L (3.5-5.1); Sodium Level 140 mmol/L (136-145)
[2018-05-31] MEDS ORDERED: KCL 20 MEQ/100 mL IVPB 20 MEQ/100 ML BAG IV SCH (07:00)
--- NOTE | 2018-05-31 08:03 | P.CNS ---
Date of Consult: 05/31/18 Reason for Consult: pneumonia Primary Care Provider: Unknown Chief Complaint: Weakness, acute renal injury History of Present Illness: Pt is 77 yrs of ae AW weakness diarhea and fever. worse past few days PT admission CXry infilatrates.Pt septic OA. HArd of hearing. No prior Hxof CP disease. NEver smoked. . Allergies No Known Allergies Allergy (Unverified 10/20/17 19:45) Home Medications: Codeine/APAP [Tylenol #3*] 1 tab PO Q6HP PRN 10/29/17 clonazePAM [Clonazepam] 1 mg PO TID 10/29/17 Lisinopril 10 mg PO DAILY #30 tablet 10/30/17 Metoprolol Tartrate [Lopressor*] 25 mg PO BID 6AM 6PM #60 tab 10/30/17 - Past Medical/Surgical History Diabetic: No -: anemia -: HTN -: Dementia -: hysterectomy -: joint replacement - Family History Mother Medical History: Lung disease Father Medical History: Stroke - Social History Smoking Status: Unknown if ever smoked Alcohol use: No CD- Drugs: No Caffeine use: No Place of Residence: Home Review of Systems General: Weakness Respiratory: Cough, Shortness of Breath Gastrointestinal: Diarrhea Physical Examination Temp Pulse Resp BP Pulse Ox 97.7 F 91 H 16 149/72 H 99 05/31/18 04:00 05/31/18 05:23 05/31/18 04:00 05/31/18 05:23 05/31/18 04:00 General: Alert, Moderate distress HEENT: Atraumatic Neck: Supple Respiratory: Crackles/rales (bilat crackeles L>R) Cardiovascular: No edema, Regular rate/rhythm - Problems (1) Pneumonia Current Visit: Yes Status: Acute Plan: Pt is 77 yrs of age AW fever,weakness and diarhea. Pt has pneumonia on cxry. Renal function is improving. WBC declining. MRSA in urine. Hemodynamically stable. Add Zosyn. Stool C def postive. on Faldyl .MRSa in urine on Doxy.Renal function has improved
[2018-05-31] MEDS ORDERED: Magnesium Sulfate 2gm IVPB 2 G/50 ML BAG IV ONE (09:00)
[2018-05-31] MEDS: CALCITROL 0.25 MCG CAP PO SCH (11:00)
[2018-05-31] MEDS: VITAMIN D 5,000 UNIT CAP PO SCH (11:00)
[2018-05-31] MEDS: DOXYCYCLINE 100 MG CAP PO SCH ×2 (11:00→21:33)
[2018-05-31] MEDS: ENOXAPARIN 30 MG/0.3 ML SQ SCH (11:00)
[2018-05-31] MEDS: ENSURE ENLIVE 237 ML CAN PO SCH ×2 (11:01→21:34)
--- NOTE | 2018-05-31 11:31 | P.PN ---
Subjective Date of Service: 05/31/18 Primary Care Provider: Unknown Chief Complaint: Weakness, acute renal injury Patient seen and examined at bedside with RN. Chart reviewed. Case discussed With Nephrology and pulmonology. No complaints to offer overnight. No complaints to offer this AM Doing well overall. More Alert and Oriented today Review of Systems General: As per HPI Physical Examination - Vital Signs Temperature: 99.1 F Blood Pressure: 163/70 Pulse: 80 Respirations: 20 Pulse Ox (%): 92 - Physical Exam General: Alert, Oriented x3, Mild distress HEENT: Atraumatic Neck: Supple Respiratory: Normal air movement, Crackles/rales, Rhonchi/gurgles Cardiovascular: Regular rate/rhythm, Normal S1 S2 Gastrointestinal: Normal bowel sounds, Soft and benign, Non-distended, No tenderness Musculoskeletal: No tenderness Integumentary: No rashes Neurological: Normal speech, Normal tone, Normal affect Lymphatics: No axilla or inguinal lymphadenopathy - Studies Medications List Reviewed: Yes Assessment & Plan - Problems (Diagnosis) (1) Sepsis Current Visit: Yes Status: Suspected Plan: Sepsis most likely 2.2 to PNA vs Enteritis vs UTI -Urine Culture + for MRSA. -Stool culture + diff -On Doxycycline and Flagyl. Added Zosyn for PNA today -Awaiting Clinical Improvement - Pt still coughing and PE consistent with Gurgles and rales Qualifiers: Sepsis type: sepsis due to unspecified organism Qualified Code(s): A41.9 - Sepsis, unspecified organism (2) Pneumonia Current Visit: Yes Status: Suspected Plan: Suspected PNA. -Elevated procal, Lactic acid and white count -Cxray with PNA on the left -On doxycycline and Zosyn now -pulmonology consulted. appreciate [facility] Qualifiers: Aspiration pneumonia type: unspecified Laterality: left Lung location: lower lobe of lung (3) UTI (urinary tract infection) Onset Date: 05/28/18 Current Visit: Yes Status: Acute Plan: Acute UTI -Urine culture + MRSA Qualifiers: Urinary tract infection type: acute cystitis Hematuria presence: without hematuria Qualified Code(s): N30.00 - Acute cystitis without hematuria (4) Enteritis Current Visit: Yes Status: Acute Plan: -Cdiff + -No Diarrhea Overnight -On flagyl (5) Acute renal injury Onset Date: 05/28/18 Current Visit: Yes Status: Acute Plan: Most Likely 2.2 to Dehydration 2.2 to Dementia vs FTT -IV fluids for now -BUN.CR Back to Baseline (6) Failure to thrive in adult Onset Date: 05/28/18 Current Visit: Yes Status: Acute Plan: Dietary Consulted. (7) HTN (hypertension) Onset Date: 10/30/17 Current Visit: No Status: Chronic Qualifiers: Hypertension type: essential hypertension Qualified Code(s): I10 - Essential (primary) hypertension Discharge Plan: Home Plan to discharge in: 48 Hours - Code Status/Comfort Care Code Status Assessed: Yes Critical Care: No
[2018-05-31] MEDS: PIPER/TAZO/NS 3.375gm 3.375 GM/100 ML BAG IVPB SCH ×2 (11:35→16:59)
[2018-05-31] MEDS ORDERED: SOD FERRIC GLUC COMPLX/SUCROSE 125 MG in NA CHLORIDE 0.9% 100 ML IV ONE (19:00)
--- NOTE | 2018-05-31 20:24 | P.PN ---
Date of Service: 05/31/18 Vital Signs Temp Pulse Resp BP Pulse Ox 97.4 F 88 24 H 140/52 L 97 05/31/18 20:00 05/31/18 20:00 05/31/18 20:00 05/31/18 20:00 05/31/18 20:00 Medications Acetaminophen (Tylenol -Extra Strength) 500 mg PO Q4HP PRN PRN Reason: [id number] Stop: 06/26/18 22:48 Last Admin: 05/31/18 13:40 Dose: 500 mg Acetaminophen/Codeine Phosphate (Tylenol W/Codeine #3 Tab) 1 tab PO Q6H PRN PRN Reason: PAIN MILD TO MODERATE Stop: 06/27/18 16:01 Last Admin: 05/30/18 17:01 Dose: 1 tab Benzonatate (Tessalon Perle) 200 mg PO TID PRN PRN Reason: COUGH Stop: 06/28/18 22:01 Last Admin: 05/30/18 15:36 Dose: 200 mg Calcitriol (Rocaltrol) 0.5 mcg PO DAILY [facility] Stop: 06/28/18 09:01 Last Admin: 05/31/18 11:00 Dose: 0.5 mcg Cholecalciferol (Vitamin D 5,000 Iu Cap) 5,000 unit PO DAILY [facility] Stop: 06/28/18 09:01 Last Admin: 05/31/18 11:00 Dose: 5,000 unit Clonazepam (Klonopin) 0.5 mg PO TID PRN PRN Reason: AGITATION/ANXIETY Stop: 06/27/18 14:01 Last Admin: 05/30/18 17:01 Dose: 0.5 mg Doxycycline Monohydrate (Vibramycin) 100 mg PO BID [facility]; Protocol Stop: 06/29/18 21:01 Last Admin: 05/31/18 11:00 Dose: 100 mg Enoxaparin Sodium (Lovenox 30 Mg Inj) 30 mg SQ DAILY [facility] Stop: 06/27/18 09:01 Last Admin: 05/31/18 11:00 Dose: 30 mg Metronidazole/Sodium Chloride (Flagyl 500mg/100 Ml Iv Premix) 500 mg in 100 mls @ 200 mls/hr IV Q8HR [facility]; Protocol Stop: 06/27/18 09:01 Last Admin: 08/16/18 16:59 Dose: 100 mls Piperacillin Sod/Tazobactam Sod (Zosyn 3.375 Gm/100 Ml Ns Ivpb) 3.375 gm in 100 mls @ 100 mls/hr IVPB Q8HR [facility]; Protocol Stop: 06/30/18 09:01 Last Admin: 05/31/18 16:59 Dose: 100 mls Metoprolol Tartrate (Lopressor) 25 mg PO BID 6AM 6PM [facility] Stop: 06/27/18 18:01 Last Admin: 05/31/18 18:07 Dose: 25 mg Nutritional Formula (Ensure Enlive) 237 ml PO BID [facility] Stop: 06/28/18 21:01 Last Admin: 05/31/18 11:01 Dose: 237 ml Ondansetron HCl (Zofran) 4 mg IV Q6HP PRN PRN Reason: NAUSEA / VOMITING Stop: 06/26/18 22:48 Last Admin: 05/29/18 12:33 Dose: 4 mg Pantoprazole Sodium (Protonix Tab) 40 mg PO DAILYAC [facility] Stop: 06/28/18 06:31 Last Admin: 05/31/18 05:23 Dose: 40 mg Sodium Chloride (Normal Saline Flush) 10 ml IV BID [facility] Stop: 06/26/18 22:48 Last Admin: 05/31/18 11:00 Dose: 10 ml Assessment/ Plan: Nephrology. Weakness and malaise. CPS stable without CP or SOB. No acute events overnight. Limited IH/ ROS due to dementia. Vitals, medications, blood work and imaging reviewed in the chart. General: Alert, In no apparent distress, Cooperative HEENT: Normocephalic Neck: Supple Respiratory: Clear to auscultation bilaterally Cardiovascular: No edema, Regular rate/rhythm, No rubs Gastrointestinal: Soft and benign, Non-distended, No guarding Musculoskeletal: No clubbing, No contractures Integumentary: No rashes, No cyanosis Neurological: Normal speech Blood work reviewed in the chart. Hgb 9.5; Cr 2.8 Imagings Data: Reason for Exam: Acute renal failure Report Status: Signed EXAM DESCRIPTION: US - Renal Ultrasound-Complete - 05/28/2018 9:03 am CLINICAL HISTORY: Acute renal failure COMPARISON: May 28 CT imaging FINDINGS: The right kidney measures 10.0 x 4.1 x 3.9 cm. The left kidney measures 7.6 x 4.5 x 3.1 cm. Cortical thickness is normal. Cortical echogenicity is only slightly increased. This could be body habitus artifact or a minimal underlying medical renal disease. No hydronephrosis or suspicious renal mass. No bladder wall thickening or mass. No intraluminal stone or mass. IMPRESSION: No hydronephrosis or suspicious renal mass. Minimal increase in renal cortical echogenicity could be body habitus artifact or mild medical renal disease. EXAM DESCRIPTION: CT - Abdomen Wo Contrast - 05/28/2018 8:48 am CLINICAL HISTORY: Sepsis, abdominal pain, diarrhea COMPARISON: None. TECHNIQUE: Axial [address] imaging of the abdomen was performed. No IV contrast was administered. No oral contrast administered. All CT scans are performed using dose optimization technique as appropriate and may include automated exposure control or mA/KV adjustment according to patient size. FINDINGS: Patchy interstitial and alveolar opacities are present in the posterior left lung base. No significant right lung field finding. There is some minimal scarring and nodularity favored to be chronic. No pericardial effusion. The liver, spleen, and pancreas show no suspicious findings for non IV contrast imaging. Gallbladder and biliary tree are without suspicious finding. Gallstones can be occult on CT imaging. No hydronephrosis or suspicious renal mass. Isodense masses and pyelonephritis are not excluded on a non IV contrast study. No adrenal abnormality. No dilated bowel loops or bowel wall thickening. No free air, free fluid or inflammatory stranding. No hernia, mass or bulky lymphadenopathy. Bony degenerative changes are present. Dense arterial tree calcifications are present. Exam was ordered as CT abdomen. No imaging of the pelvis performed. Exam sensitivity is decreased when no IV contrast is administered. IMPRESSION: CT abdomen imaging shows no free air, bowel obstruction or surgically emergent finding. Patchy pneumonia changes posterior left lung base. No acute abdomen or pelvis finding. Assessment is limited in the absence of oral and IV contrast. Conclusions/Impression: A/ SUSAN likely due to hypovolemia. Acidosis in the setting of diarrhea/ SUSAN. Hypocalcemia. Hypomagnesemia. Anemia in chronic illness. Iron deficiency. LLL PNA. Dementia. P/ Continue current POC and Medications. IVF as needed. Agree with magnesium replacement. Give IV iron. Agree with abx including the addition Zosyn. Encourage nutrition. No NSAIDs. AM labs. Daily weight.
[2018-06-01] MEDS: PIPER/TAZO/NS 3.375gm 3.375 GM/100 ML BAG IVPB SCH ×3 (00:26→16:45)
[2018-06-01] MEDS: METRONIDAZOLE 500mg IVPB 500 MG/100 ML BAG IV SCH ×3 (00:27→16:45)
[2018-06-01] MEDS: ACETAMINOPHEN 500 MG TAB PO PRN ×3 (05:06→21:33)
[2018-06-01] MEDS: METOPROLOL TAR 25 MG TAB PO SCH ×2 (05:06→17:49)
[2018-06-01] MEDS: PANTOPRAZOLE 40MG TABLET PO SCH (05:57)
[2018-06-01 06:16] VITALS: BMI 15.2
[2018-06-01 06:22] LABS: BUN Blood Urea Nitrogen 9 mg/dL (7-18); Bicarbonate 26 mmol/L (21-32); Glucose Level 102 mg/dL (74-106); Potassium 3.7 mmol/L (3.5-5.1); Sodium Level 140 mmol/L (136-145)
[2018-06-01] MEDS ORDERED: POTASSIUM 25 MEQ EFFERV TAB PO ONE (09:00)
[2018-06-01] MEDS: CALCITROL 0.25 MCG CAP PO SCH (09:56)
[2018-06-01] MEDS: ENOXAPARIN 30 MG/0.3 ML SQ SCH (09:56)
[2018-06-01] MEDS: ENSURE ENLIVE 237 ML CAN PO SCH ×2 (09:57→21:00)
[2018-06-01] MEDS: VITAMIN D 5,000 UNIT CAP PO SCH (09:57)
[2018-06-01] MEDS: DOXYCYCLINE 100 MG CAP PO SCH ×2 (10:54→21:33)
--- NOTE | 2018-06-01 14:48 | P.PN ---
Subjective Date of Service: 06/01/18 Primary Care Provider: Unknown Chief Complaint: Weakness, acute renal injury Patient seen and examined at bedside with RN. Chart reviewed. Case discussed With Nephrology and pulmonology. No complaints to offer overnight. No complaints to offer this AM Doing well overall. More Alert and Oriented today Review of Systems General: As per HPI Physical Examination - Vital Signs Temperature: 98.0 F Blood Pressure: 175/77 Pulse: 84 Respirations: 18 Pulse Ox (%): 94 - Physical Exam General: Alert, In no apparent distress, Demented HEENT: Atraumatic, PERRLA, EOMI Neck: Supple, JVD not distended Respiratory: Normal air movement, Rhonchi/gurgles Cardiovascular: Regular rate/rhythm, Normal S1 S2 Gastrointestinal: Normal bowel sounds, No tenderness Musculoskeletal: No tenderness Integumentary: No rashes Neurological: Normal speech, Normal tone, Normal affect Lymphatics: No axilla or inguinal lymphadenopathy - Studies Medications List Reviewed: Yes Assessment & Plan - Problems (Diagnosis) (1) Sepsis Current Visit: Yes Status: Suspected Plan: Sepsis most likely 2.2 to PNA vs Enteritis vs UTI -Urine Culture + for MRSA. -Stool culture + diff -On Doxycycline and Flagyl. Added Zosyn for PNA -Awaiting Placement at the SNF Qualifiers: Sepsis type: sepsis due to unspecified organism Qualified Code(s): A41.9 - Sepsis, unspecified organism (2) Pneumonia Current Visit: Yes Status: Suspected Plan: Suspected PNA. -Elevated procal, Lactic acid and white count -Cxray with PNA on the left -On doxycycline and Zosyn now -pulmonology consulted. appreciate [facility] Qualifiers: Aspiration pneumonia type: unspecified Laterality: left Lung location: lower lobe of lung (3) UTI (urinary tract infection) Onset Date: 05/28/18 Current Visit: Yes Status: Acute Plan: Acute UTI -Urine culture + MRSA Qualifiers: Urinary tract infection type: acute cystitis Hematuria presence: without hematuria Qualified Code(s): N30.00 - Acute cystitis without hematuria (4) Enteritis Current Visit: Yes Status: Acute Plan: -Cdiff + -No Diarrhea Overnight -On flagyl (5) Acute renal injury Onset Date: 05/28/18 Current Visit: Yes Status: Acute Plan: Most Likely 2.2 to Dehydration 2.2 to Dementia vs FTT -IV fluids for now -BUN.CR Back to Baseline (6) Failure to thrive in adult Onset Date: 05/28/18 Current Visit: Yes Status: Acute Plan: Dietary Consulted. (7) HTN (hypertension) Onset Date: 10/30/17 Current Visit: No Status: Chronic Qualifiers: Hypertension type: essential hypertension Qualified Code(s): I10 - Essential (primary) hypertension Discharge Plan: Detention Plan to discharge in: 48 Hours - Code Status/Comfort Care Code Status Assessed: Yes Critical Care: No
[2018-06-01] MEDS: clonazePAM 0.5 MG TAB PO PRN (21:33)
--- NOTE | 2018-06-01 22:44 | P.PN ---
Date of Service: 06/01/18 Vital Signs Temp Pulse Resp BP Pulse Ox 98.1 F 92 H 18 188/79 H 95 06/01/18 16:00 06/01/18 17:49 06/01/18 16:00 06/01/18 17:49 06/01/18 16:00 Medications Acetaminophen (Tylenol -Extra Strength) 500 mg PO Q4HP PRN PRN Reason: [id number] Stop: 06/26/18 22:48 Last Admin: 06/01/18 21:33 Dose: 500 mg Acetaminophen/Codeine Phosphate (Tylenol W/Codeine #3 Tab) 1 tab PO Q6H PRN PRN Reason: PAIN MILD TO MODERATE Stop: 06/27/18 16:01 Last Admin: 05/30/18 17:01 Dose: 1 tab Benzonatate (Tessalon Perle) 200 mg PO TID PRN PRN Reason: COUGH Stop: 06/28/18 22:01 Last Admin: 05/30/18 15:36 Dose: 200 mg Calcitriol (Rocaltrol) 0.5 mcg PO DAILY [facility] Stop: 06/28/18 09:01 Last Admin: 06/01/18 09:56 Dose: 0.5 mcg Cholecalciferol (Vitamin D 5,000 Iu Cap) 5,000 unit PO DAILY [facility] Stop: 06/28/18 09:01 Last Admin: 06/01/18 09:57 Dose: 5,000 unit Clonazepam (Klonopin) 0.5 mg PO TID PRN PRN Reason: AGITATION/ANXIETY Stop: 06/27/18 14:01 Last Admin: 06/01/18 21:33 Dose: 0.5 mg Doxycycline Monohydrate (Vibramycin) 100 mg PO BID [facility]; Protocol Stop: 06/29/18 21:01 Last Admin: 06/01/18 21:33 Dose: 100 mg Enoxaparin Sodium (Lovenox 30 Mg Inj) 30 mg SQ DAILY [facility] Stop: 06/27/18 09:01 Last Admin: 06/01/18 09:56 Dose: 30 mg Metronidazole/Sodium Chloride (Flagyl 500mg/100 Ml Iv Premix) 500 mg in 100 mls @ 200 mls/hr IV Q8HR [facility]; Protocol Stop: 06/27/18 09:01 Last Admin: 08/17/18 16:45 Dose: 100 mls Piperacillin Sod/Tazobactam Sod (Zosyn 3.375 Gm/100 Ml Ns Ivpb) 3.375 gm in 100 mls @ 100 mls/hr IVPB Q8HR [facility]; Protocol Stop: 06/30/18 09:01 Last Admin: 06/01/18 16:45 Dose: 100 mls Ferric Sodium Gluconate Complex 125 mg/ Sodium Chloride 110 mls @ 100 mls/hr IV DAILY [facility] Stop: 06/02/18 07:05 Metoprolol Tartrate (Lopressor) 25 mg PO BID 6AM 6PM [facility] Stop: 06/27/18 18:01 Last Admin: 06/01/18 17:49 Dose: 25 mg Nutritional Formula (Ensure Enlive) 237 ml PO BID [facility] Stop: 06/28/18 21:01 Last Admin: 06/01/18 21:00 Dose: Not Given Ondansetron HCl (Zofran) 4 mg IV Q6HP PRN PRN Reason: NAUSEA / VOMITING Stop: 06/26/18 22:48 Last Admin: 05/29/18 12:33 Dose: 4 mg Pantoprazole Sodium (Protonix Tab) 40 mg PO DAILYAC [facility] Stop: 06/28/18 06:31 Last Admin: 06/01/18 05:57 Dose: 40 mg Sodium Chloride (Normal Saline Flush) 10 ml IV BID [facility] Stop: 06/26/18 22:48 Last Admin: 06/01/18 21:34 Dose: 10 ml Assessment/ Plan: Nephrology. CPS stable without CP or SOB. No acute events overnight. Limited IH/ ROS due to dementia. Vitals, medications, blood work and imaging reviewed in the chart. General: Alert, In no apparent distress, Cooperative HEENT: Normocephalic Neck: Supple Respiratory: Clear to auscultation bilaterally Cardiovascular: No edema, Regular rate/rhythm, No rubs Gastrointestinal: Soft and benign, Non-distended, No guarding Musculoskeletal: No clubbing, No contractures Integumentary: No rashes, No cyanosis Neurological: Normal speech Blood work reviewed in the chart. Hgb 9.5; Cr 2.8 Imagings Data: Reason for Exam: Acute renal failure Report Status: Signed EXAM DESCRIPTION: US - Renal Ultrasound-Complete - 05/28/2018 9:03 am CLINICAL HISTORY: Acute renal failure COMPARISON: May 28 CT imaging FINDINGS: The right kidney measures 10.0 x 4.1 x 3.9 cm. The left kidney measures 7.6 x 4.5 x 3.1 cm. Cortical thickness is normal. Cortical echogenicity is only slightly increased. This could be body habitus artifact or a minimal underlying medical renal disease. No hydronephrosis or suspicious renal mass. No bladder wall thickening or mass. No intraluminal stone or mass. IMPRESSION: No hydronephrosis or suspicious renal mass. Minimal increase in renal cortical echogenicity could be body habitus artifact or mild medical renal disease. EXAM DESCRIPTION: CT - Abdomen Wo Contrast - 05/28/2018 8:48 am CLINICAL HISTORY: Sepsis, abdominal pain, diarrhea COMPARISON: None. TECHNIQUE: Axial [address] imaging of the abdomen was performed. No IV contrast was administered. No oral contrast administered. All CT scans are performed using dose optimization technique as appropriate and may include automated exposure control or mA/KV adjustment according to patient size. FINDINGS: Patchy interstitial and alveolar opacities are present in the posterior left lung base. No significant right lung field finding. There is some minimal scarring and nodularity favored to be chronic. No pericardial effusion. The liver, spleen, and pancreas show no suspicious findings for non IV contrast imaging. Gallbladder and biliary tree are without suspicious finding. Gallstones can be occult on CT imaging. No hydronephrosis or suspicious renal mass. Isodense masses and pyelonephritis are not excluded on a non IV contrast study. No adrenal abnormality. No dilated bowel loops or bowel wall thickening. No free air, free fluid or inflammatory stranding. No hernia, mass or bulky lymphadenopathy. Bony degenerative changes are present. Dense arterial tree calcifications are present. Exam was ordered as CT abdomen. No imaging of the pelvis performed. Exam sensitivity is decreased when no IV contrast is administered. IMPRESSION: CT abdomen imaging shows no free air, bowel obstruction or surgically emergent finding. Patchy pneumonia changes posterior left lung base. No acute abdomen or pelvis finding. Assessment is limited in the absence of oral and IV contrast. Conclusions/Impression: A/ SUSAN likely due to hypovolemia. Acidosis in the setting of diarrhea/ SUSAN. Hypocalcemia. Hypomagnesemia. Anemia in chronic illness. Iron deficiency. LLL PNA. Dementia. P/ Continue current POC and Medications. IVF as needed. Give IV iron. Agree with abx. Encourage nutrition. No NSAIDs. AM labs. Daily weight.
[2018-06-02] MEDS: PIPER/TAZO/NS 3.375gm 3.375 GM/100 ML BAG IVPB SCH ×3 (00:38→16:55)
[2018-06-02] MEDS: METRONIDAZOLE 500mg IVPB 500 MG/100 ML BAG IV SCH ×3 (00:39→16:54)
[2018-06-02] MEDS: METOPROLOL TAR 25 MG TAB PO SCH ×2 (05:41→16:53)
[2018-06-02] MEDS: PANTOPRAZOLE 40MG TABLET PO SCH (05:41)
[2018-06-02] MEDS ORDERED: SOD FERRIC GLUC COMPLX/SUCROSE 125 MG in NA CHLORIDE 0.9% 100 ML IV SCH (06:00)
[2018-06-02] MEDS ORDERED: SOD FERRIC GLUC COMPLX/SUCROSE 62.5 MG/5 ML VIAL IV ONE (06:26)
[2018-06-02] MEDS ORDERED: NA CHLORIDE 0.9% 100 ML ONE (06:30)
[2018-06-02 06:47] LABS: BUN Blood Urea Nitrogen 8 mg/dL (7-18); Bicarbonate 32 mmol/L (21-32); Glucose Level 101 mg/dL (74-106); Sodium Level 142 mmol/L (136-145)
[2018-06-02] MEDS: ENSURE ENLIVE 237 ML CAN PO SCH ×2 (09:00→20:22)
[2018-06-02] MEDS ORDERED: KCL 20 MEQ/100 mL IVPB 20 MEQ/100 ML BAG IV SCH (09:00)
[2018-06-02] MEDS: CALCITROL 0.25 MCG CAP PO SCH (09:20)
[2018-06-02] MEDS: ENOXAPARIN 30 MG/0.3 ML SQ SCH (09:20)
[2018-06-02] MEDS: ACETAMINOPHEN 500 MG TAB PO PRN ×2 (09:20→23:38)
[2018-06-02] MEDS: VITAMIN D 5,000 UNIT CAP PO SCH (09:20)
[2018-06-02] MEDS ORDERED: NA CHLORIDE 0.9% 0 ML ONE (09:41)
[2018-06-02] MEDS: DOXYCYCLINE 100 MG CAP PO SCH ×2 (10:07→20:22)
[2018-06-02] MEDS ORDERED: POTASSIUM CL SA 10 MEQ TAB PO ONE (10:49)
--- NOTE | 2018-06-02 15:28 | P.PN ---
Subjective Date of Service: 06/02/18 Primary Care Provider: Unknown Chief Complaint: Weakness, acute renal injury Patient seen and examined at bedside with RN. Chart reviewed. Case discussed With Nephrology and pulmonology. No complaints to offer overnight. No complaints to offer this AM Doing well overall. More Alert and Oriented today. Sitting on the chair this AM Review of Systems General: As per HPI Physical Examination - Vital Signs Temperature: 97.7 F Blood Pressure: 131/62 Pulse: 91 Respirations: 16 Pulse Ox (%): 91 - Physical Exam General: Alert, In no apparent distress HEENT: Atraumatic, PERRLA, EOMI Neck: Supple, JVD not distended Respiratory: Clear to auscultation bilaterally, Normal air movement Cardiovascular: Regular rate/rhythm, Normal S1 S2 Gastrointestinal: Normal bowel sounds, No tenderness Musculoskeletal: No tenderness Integumentary: No rashes Neurological: Normal speech, Normal tone, Normal affect Lymphatics: No axilla or inguinal lymphadenopathy - Studies Medications List Reviewed: Yes Assessment & Plan - Problems (Diagnosis) (1) Sepsis Current Visit: Yes Status: Suspected Plan: Sepsis most likely 2.2 to PNA vs Enteritis vs UTI -Urine Culture + for MRSA. -Stool culture + diff -Sputum Culture - thus far -On Doxycycline and Flagyl. Added Zosyn for PNA -Awaiting Placement at the SNF Qualifiers: Sepsis type: sepsis due to unspecified organism Qualified Code(s): A41.9 - Sepsis, unspecified organism (2) Pneumonia Current Visit: Yes Status: Suspected Plan: Suspected PNA. -Elevated procal, Lactic acid and white count -Cxray with PNA on the left -On doxycycline and Zosyn now -pulmonology consulted. appreciate [facility] Qualifiers: Aspiration pneumonia type: unspecified Laterality: left Lung location: lower lobe of lung (3) UTI (urinary tract infection) Onset Date: 05/28/18 Current Visit: Yes Status: Acute Plan: Acute UTI -Urine culture + MRSA Qualifiers: Urinary tract infection type: acute cystitis Hematuria presence: without hematuria Qualified Code(s): N30.00 - Acute cystitis without hematuria (4) Enteritis Current Visit: Yes Status: Acute Plan: -Cdiff + -No Diarrhea Overnight -On flagyl (5) Acute renal injury Onset Date: 05/28/18 Current Visit: Yes Status: Acute Plan: Most Likely 2.2 to Dehydration 2.2 to Dementia vs FTT -IV fluids for now -BUN.CR Back to Baseline (6) Failure to thrive in adult Onset Date: 05/28/18 Current Visit: Yes Status: Acute Plan: Dietary Consulted. (7) HTN (hypertension) Onset Date: 10/30/17 Current Visit: No Status: Chronic Qualifiers: Hypertension type: essential hypertension Qualified Code(s): I10 - Essential (primary) hypertension Discharge Plan: Half-Way Plan to discharge in: 48 Hours - Code Status/Comfort Care Code Status Assessed: Yes Critical Care: No
[2018-06-02] MEDS ORDERED: METRONIDAZOLE 500mg IVPB 500 MG/100 ML BAG IV SCH (17:00)
[2018-06-02] MEDS: clonazePAM 0.5 MG TAB PO PRN (20:22)
--- NOTE | 2018-06-02 20:53 | PN ---
Date of Progress Note: 06/02/2018 Subjective: Patient is doing okay. No issues were noted, and no overnight events were reported. Objective: Vital signs: Have been reviewed and are stable. General examination: She appears weak, cachectic, in no acute distress. Lungs: Clear to auscultation. Abdomen: Soft. Extremities: Without any evidence of edema. Laboratory Data: Showing sodium of 142, potassium of 3, chloride of 102, BUN of 8, and creatinine of 0.6, which is stable. CBC showing WBC count of 12,000, hemoglobin of 10.9, hematocrit 32.1, and luis telet count of 183. Current Medications: Include vitamin D, clonazepam, Lovenox for DVT prophylaxis, Flagyl, lisinopril 10 mg a day. She has received 40 mEq of potassium chloride repletion, pantoprazole, and Zosyn every 8 hours. Impression: 1.Acute renal insufficiency secondary to dehydration and acute tubular necrosis. Currently with imp roving renal function. 2.Hypokalemia. The patient's potassium has been repleted and it can be monitored. 3.Sepsis secondary to urinary tract infection versus pneumonia. The patient is on broad-spectrum an tibiotics. Zosyn has been added and white cell count is being monitored. 4.Pneumonia. The patient's respiratory status seems to be improving at this time. 5.Urinary tract infection. Culture is showing methicillin-resistant Staphylococcus aureus. Continu e vancomycin. 6.Failure to thrive. Encourage p.o. nutrition and protein intake. Plan: Patient is overall doing okay. Poor prognosis overall. Renal function is stable. Hypokalemi a is being monitored. Potassium has been repleted, and will monitor labs in the morning. Continue antibiotics and follow up closely on r enal function. VV/MODL Voice ID: [id number] Report ID: [id number]
[2018-06-03] MEDS: METRONIDAZOLE 500mg IVPB 500 MG/100 ML BAG IV SCH ×3 (01:59→17:04)
[2018-06-03] MEDS: PIPER/TAZO/NS 3.375gm 3.375 GM/100 ML BAG IVPB SCH ×3 (01:59→16:10)
[2018-06-03] MEDS: PANTOPRAZOLE 40MG TABLET PO SCH (05:32)
[2018-06-03] MEDS: METOPROLOL TAR 25 MG TAB PO SCH ×2 (05:32→17:04)
[2018-06-03 05:58] LABS: BUN Blood Urea Nitrogen 7 mg/dL (7-18); Bicarbonate 37 mmol/L (21-32); Glucose Level 112 mg/dL (74-106); Potassium 3.1 mmol/L (3.5-5.1); Sodium Level 143 mmol/L (136-145)
[2018-06-03] MEDS ORDERED: POTASSIUM CL SA 10 MEQ TAB PO ONE ×3 (06:13→14:00)
[2018-06-03] MEDS: DOXYCYCLINE 100 MG CAP PO SCH ×2 (08:05→20:24)
[2018-06-03] MEDS: ENOXAPARIN 30 MG/0.3 ML SQ SCH (08:06)
[2018-06-03] MEDS: LISINOPRIL 10 MG TAB PO SCH (08:06)
[2018-06-03] MEDS: VITAMIN D 5,000 UNIT CAP PO SCH (08:06)
[2018-06-03] MEDS: CALCITROL 0.25 MCG CAP PO SCH (08:06)
[2018-06-03] MEDS: ENSURE ENLIVE 237 ML CAN PO SCH ×2 (08:07→20:24)
--- NOTE | 2018-06-03 11:29 | P.PN ---
Subjective Date of Service: 06/03/18 Primary Care Provider: Unknown Chief Complaint: Weakness, acute renal injury Patient seen and examined at bedside with RN. Chart reviewed. Case discussed With Nephrology and pulmonology. No complaints to offer overnight. No complaints to offer this AM Doing well overall. Awaiting Placement today Review of Systems General: As per HPI Physical Examination - Vital Signs Temperature: 97.9 F Blood Pressure: 186/81 Pulse: 84 Respirations: 16 Pulse Ox (%): 90 - Physical Exam General: Alert, Oriented x3, Mild distress HEENT: Atraumatic, PERRLA, EOMI Neck: Supple, JVD not distended Respiratory: Normal air movement, Crackles/rales, Rhonchi/gurgles Cardiovascular: Regular rate/rhythm, Normal S1 S2 Gastrointestinal: Normal bowel sounds, No tenderness Musculoskeletal: No tenderness Integumentary: No rashes Neurological: Normal speech, Normal tone, Normal affect Lymphatics: No axilla or inguinal lymphadenopathy - Studies Medications List Reviewed: Yes Assessment & Plan - Problems (Diagnosis) (1) Sepsis Current Visit: Yes Status: Suspected Plan: Sepsis most likely 2.2 to PNA vs Enteritis vs UTI -Urine Culture + for MRSA. -Stool culture + diff -Sputum Culture - thus far -On Doxycycline and Flagyl. Added Zosyn for PNA -Awaiting Placement at the SNF Qualifiers: Sepsis type: sepsis due to unspecified organism Qualified Code(s): A41.9 - Sepsis, unspecified organism (2) Pneumonia Current Visit: Yes Status: Suspected Plan: Suspected PNA. -Elevated procal, Lactic acid and white count -Cxray with PNA on the left -On doxycycline and Zosyn now -pulmonology consulted. appreciate [facility] Qualifiers: Aspiration pneumonia type: unspecified Laterality: left Lung location: lower lobe of lung (3) UTI (urinary tract infection) Onset Date: 05/28/18 Current Visit: Yes Status: Acute Plan: Acute UTI -Urine culture + MRSA Qualifiers: Urinary tract infection type: acute cystitis Hematuria presence: without hematuria Qualified Code(s): N30.00 - Acute cystitis without hematuria (4) Enteritis Current Visit: Yes Status: Acute Plan: -Cdiff + -No Diarrhea Overnight -On flagyl (5) Acute renal injury Onset Date: 05/28/18 Current Visit: Yes Status: Acute Plan: Most Likely 2.2 to Dehydration 2.2 to Dementia vs FTT -IV fluids for now -BUN.CR Back to Baseline (6) Failure to thrive in adult Onset Date: 05/28/18 Current Visit: Yes Status: Acute Plan: Dietary Consulted. (7) HTN (hypertension) Onset Date: 10/30/17 Current Visit: No Status: Chronic Qualifiers: Hypertension type: essential hypertension Qualified Code(s): I10 - Essential (primary) hypertension
[2018-06-03] MEDS: ACETAMINOPHEN 500 MG TAB PO PRN ×2 (11:52→16:03)
[2018-06-03] MEDS: NA CHLORIDE 0.9% 1,000 ML IV SCH (12:49)
--- NOTE | 2018-06-03 13:03 | RAD REPORT ---
EXAM DESCRIPTION: RAD - Chest Single View - 06/03/2018 12:53 pm CLINICAL HISTORY: Wheezing, shortness of breath COMPARISON: May 30, May 28 TECHNIQUE: AP portable chest image was obtained 1241 hours . FINDINGS: Patient has extensive baseline interstitial fibrotic change. No new or progressive right l wisam field finding identifiable. Left lung field opacification has shown some improvement in the midlu ng field. Apical and base opacification remains. A progressive process is not suspected. Heart and vasculature are normal. No pneumothorax or enlarging pleural effusion. No gross bony abnor mality seen. No acute aortic findings suspected. IMPRESSION: Partial clearing of infiltrate changes in the left midlung field. Upper lobe and lung base opacification on the left is still present.
[2018-06-03] MEDS: clonazePAM 0.5 MG TAB PO PRN (21:04)
[2018-06-03] MEDS: CODEINE 30MG/APAP 300MG TAB PO PRN (23:27)
[2018-06-04] MEDS: METRONIDAZOLE 500mg IVPB 500 MG/100 ML BAG IV SCH ×3 (00:06→17:00)
[2018-06-04] MEDS: PIPER/TAZO/NS 3.375gm 3.375 GM/100 ML BAG IVPB SCH ×3 (00:07→17:13)
[2018-06-04 05:11] LABS: BUN Blood Urea Nitrogen 10 mg/dL (7-18); Bicarbonate 35 mmol/L (21-32); Glucose Level 101 mg/dL (74-106); Potassium 3.7 mmol/L (3.5-5.1); Sodium Level 144 mmol/L (136-145)
[2018-06-04] MEDS ORDERED: POTASSIUM CL SA 10 MEQ TAB PO ONE (05:19)
[2018-06-04] MEDS: METOPROLOL TAR 25 MG TAB PO SCH ×2 (05:32→17:14)
[2018-06-04] MEDS: CODEINE 30MG/APAP 300MG TAB PO PRN ×3 (05:33→18:42)
[2018-06-04] MEDS: PANTOPRAZOLE 40MG TABLET PO SCH (05:33)
[2018-06-04] MEDS: NA CHLORIDE 0.9% 1,000 ML IV SCH ×3 (08:00→20:21)
[2018-06-04] MEDS: ENSURE ENLIVE 237 ML CAN PO SCH ×2 (09:00→20:22)
[2018-06-04] MEDS: ENOXAPARIN 30 MG/0.3 ML SQ SCH (09:42)
[2018-06-04] MEDS: VITAMIN D 5,000 UNIT CAP PO SCH (09:42)
[2018-06-04] MEDS: LISINOPRIL 10 MG TAB PO SCH (09:42)
[2018-06-04] MEDS: DOXYCYCLINE 100 MG CAP PO SCH ×2 (09:42→20:22)
[2018-06-04] MEDS: CALCITROL 0.25 MCG CAP PO SCH (09:43)
[2018-06-04] MEDS: clonazePAM 0.5 MG TAB PO PRN ×2 (12:08→23:11)
--- NOTE | 2018-06-04 14:04 | P.PN ---
Subjective Date of Service: 06/04/18 Primary Care Provider: Unknown Chief Complaint: Weakness, acute renal injury Patient seen and examined at bedside with RN. Chart reviewed. Case discussed With Nephrology and pulmonology. No complaints to offer overnight. Had 4 episodes of BM yesterday and has been improving since then. No complaints to offer this AM Awaiting Placement today Review of Systems 10-point ROS is otherwise unremarkable Physical Examination - Vital Signs Temperature: 97.8 F Blood Pressure: 176/72 Pulse: 84 Respirations: 18 Pulse Ox (%): 96 - Physical Exam General: Alert, Oriented x3, Cachectic HEENT: Atraumatic Neck: Supple Respiratory: Normal air movement, Expiratory wheezes, Inspiratory wheezes Cardiovascular: Regular rate/rhythm, Normal S1 S2 Gastrointestinal: Normal bowel sounds, Soft and benign, Non-distended, No tenderness Musculoskeletal: No tenderness Integumentary: No rashes Neurological: Normal speech, Normal tone, Normal affect Lymphatics: No axilla or inguinal lymphadenopathy - Studies Medications List Reviewed: Yes Assessment & Plan - Problems (Diagnosis) (1) Sepsis Current Visit: Yes Status: Suspected Plan: Sepsis most likely 2.2 to PNA vs Enteritis vs UTI -Urine Culture + for MRSA. -Stool culture + diff -Sputum Culture - thus far -On Doxycycline and Flagyl. Added Zosyn for PNA -Awaiting Placement at the SNF Qualifiers: Sepsis type: methicillin resistant Staphylococcus aureus Qualified Code(s) : A41.02 - Sepsis due to Methicillin resistant Staphylococcus aureus (2) Pneumonia Current Visit: Yes Status: Suspected Plan: Suspected PNA. -Elevated procal, Lactic acid and white count -Cxray with PNA on the left -On doxycycline and Zosyn now -pulmonology consulted. appreciate [facility] Qualifiers: Aspiration pneumonia type: unspecified Laterality: left Lung location: lower lobe of lung (3) UTI (urinary tract infection) Onset Date: 05/28/18 Current Visit: Yes Status: Acute Plan: Acute UTI -Urine culture + MRSA Qualifiers: Urinary tract infection type: acute cystitis Hematuria presence: without hematuria Qualified Code(s): N30.00 - Acute cystitis without hematuria (4) Enteritis Current Visit: Yes Status: Acute Plan: -Cdiff + -4 Diarrhea Overnight and Today with 2 so far -Improving overall. -On flagyl (5) Acute renal injury Onset Date: 05/28/18 Current Visit: Yes Status: Acute Plan: Most Likely 2.2 to Dehydration 2.2 to Dementia vs FTT -IV fluids for now -BUN.CR Back to Baseline (6) Failure to thrive in adult Onset Date: 05/28/18 Current Visit: Yes Status: Acute Plan: Dietary Consulted. (7) HTN (hypertension) Onset Date: 10/30/17 Current Visit: No Status: Chronic Qualifiers: Hypertension type: essential hypertension Qualified Code(s): I10 - Essential (primary) hypertension Discharge Plan: Long Term Plan to discharge in: 48 Hours - Code Status/Comfort Care Code Status Assessed: Yes Critical Care: No
--- NOTE | 2018-06-04 22:04 | P.PN ---
Date of Service: 06/04/18 Vital Signs Temp Pulse Resp BP Pulse Ox 97.6 F 81 20 178/84 H 100 06/04/18 16:00 06/04/18 17:14 06/04/18 16:00 06/04/18 17:14 06/04/18 16:00 Medications Acetaminophen (Tylenol -Extra Strength) 500 mg PO Q4HP PRN PRN Reason: [id number] Stop: 06/26/18 22:48 Last Admin: 06/03/18 16:03 Dose: 500 mg Acetaminophen/Codeine Phosphate (Tylenol W/Codeine #3 Tab) 1 tab PO Q6H PRN PRN Reason: PAIN Stop: 07/03/18 23:08 Last Admin: 06/04/18 18:42 Dose: 1 tab Benzonatate (Tessalon Perle) 200 mg PO TID PRN PRN Reason: COUGH Stop: 06/28/18 22:01 Last Admin: 05/30/18 15:36 Dose: 200 mg Calcitriol (Rocaltrol) 0.5 mcg PO DAILY [facility] Stop: 06/28/18 09:01 Last Admin: 06/04/18 09:43 Dose: 0.5 mcg Cholecalciferol (Vitamin D 5,000 Iu Cap) 5,000 unit PO DAILY [facility] Stop: 06/28/18 09:01 Last Admin: 06/04/18 09:42 Dose: 5,000 unit Clonazepam (Klonopin) 0.5 mg PO TID PRN PRN Reason: ANXIETY Stop: 07/03/18 20:37 Last Admin: 06/04/18 12:08 Dose: 0.5 mg Doxycycline Monohydrate (Vibramycin) 100 mg PO BID [facility]; Protocol Stop: 06/29/18 21:01 Last Admin: 06/04/18 20:22 Dose: 100 mg Enoxaparin Sodium (Lovenox 30 Mg Inj) 30 mg SQ DAILY [facility] Stop: 06/27/18 09:01 Last Admin: 06/04/18 09:42 Dose: 30 mg Metronidazole/Sodium Chloride (Flagyl 500mg/100 Ml Iv Premix) 500 mg in 100 mls @ 200 mls/hr IV Q8HR [facility]; Protocol Stop: 06/27/18 09:01 Last Admin: 06/04/18 17:00 Dose: 100 mls Piperacillin Sod/Tazobactam Sod (Zosyn 3.375 Gm/100 Ml Ns Ivpb) 3.375 gm in 100 mls @ 100 mls/hr IVPB Q8HR [facility]; Protocol Stop: 06/30/18 09:01 Last Admin: 06/04/18 17:13 Dose: 100 mls Sodium Chloride (Ns 1000 Ml Ivbag) 1,000 mls @ 50 mls/hr IV .Q20H [facility] Stop: 07/03/18 12:01 Last Admin: 06/04/18 20:21 Dose: 1,000 mls Lisinopril (Prinivil) 10 mg PO DAILY [facility] Stop: 07/03/18 09:01 Last Admin: 06/04/18 09:42 Dose: 10 mg Metoprolol Tartrate (Lopressor) 25 mg PO BID 6AM 6PM [facility] Stop: 06/27/18 18:01 Last Admin: 06/04/18 17:14 Dose: 25 mg Nutritional Formula (Ensure Enlive) 237 ml PO BID [facility] Stop: 06/28/18 21:01 Last Admin: 06/04/18 20:22 Dose: 237 ml Ondansetron HCl (Zofran) 4 mg IV Q6HP PRN PRN Reason: NAUSEA / VOMITING Stop: 06/26/18 22:48 Last Admin: 05/29/18 12:33 Dose: 4 mg Pantoprazole Sodium (Protonix Tab) 40 mg PO DAILYAC [facility] Stop: 06/28/18 06:31 Last Admin: 06/04/18 05:33 Dose: 40 mg Sodium Chloride (Normal Saline Flush) 10 ml IV BID [facility] Stop: 06/26/18 22:48 Last Admin: 06/04/18 20:23 Dose: Not Given Assessment/ Plan: Nephrology. CPS stable without CP or SOB. +BM No acute events overnight. Limited IH/ ROS due to dementia. Vitals, medications, blood work and imaging reviewed in the chart. General: Alert, In no apparent distress, Cooperative HEENT: Normocephalic Neck: Supple Respiratory: Clear to auscultation bilaterally Cardiovascular: No edema, Regular rate/rhythm, No rubs Gastrointestinal: Soft and benign, Non-distended, No guarding Musculoskeletal: No clubbing, No contractures Integumentary: No rashes, No cyanosis Neurological: Normal speech Blood work reviewed in the chart. Hgb 9.5; Cr 2.8 Imagings Data: Reason for Exam: Acute renal failure Report Status: Signed EXAM DESCRIPTION: US - Renal Ultrasound-Complete - 05/28/2018 9:03 am CLINICAL HISTORY: Acute renal failure COMPARISON: May 28 CT imaging FINDINGS: The right kidney measures 10.0 x 4.1 x 3.9 cm. The left kidney measures 7.6 x 4.5 x 3.1 cm. Cortical thickness is normal. Cortical echogenicity is only slightly increased. This could be body habitus artifact or a minimal underlying medical renal disease. No hydronephrosis or suspicious renal mass. No bladder wall thickening or mass. No intraluminal stone or mass. IMPRESSION: No hydronephrosis or suspicious renal mass. Minimal increase in renal cortical echogenicity could be body habitus artifact or mild medical renal disease. EXAM DESCRIPTION: CT - Abdomen Wo Contrast - 05/28/2018 8:48 am CLINICAL HISTORY: Sepsis, abdominal pain, diarrhea COMPARISON: None. TECHNIQUE: Axial [address] imaging of the abdomen was performed. No IV contrast was administered. No oral contrast administered. All CT scans are performed using dose optimization technique as appropriate and may include automated exposure control or mA/KV adjustment according to patient size. FINDINGS: Patchy interstitial and alveolar opacities are present in the posterior left lung base. No significant right lung field finding. There is some minimal scarring and nodularity favored to be chronic. No pericardial effusion. The liver, spleen, and pancreas show no suspicious findings for non IV contrast imaging. Gallbladder and biliary tree are without suspicious finding. Gallstones can be occult on CT imaging. No hydronephrosis or suspicious renal mass. Isodense masses and pyelonephritis are not excluded on a non IV contrast study. No adrenal abnormality. No dilated bowel loops or bowel wall thickening. No free air, free fluid or inflammatory stranding. No hernia, mass or bulky lymphadenopathy. Bony degenerative changes are present. Dense arterial tree calcifications are present. Exam was ordered as CT abdomen. No imaging of the pelvis performed. Exam sensitivity is decreased when no IV contrast is administered. IMPRESSION: CT abdomen imaging shows no free air, bowel obstruction or surgically emergent finding. Patchy pneumonia changes posterior left lung base. No acute abdomen or pelvis finding. Assessment is limited in the absence of oral and IV contrast. Conclusions/Impression: A/ SUSAN likely due to hypovolemia. Acidosis in the setting of diarrhea/ SUSAN. Hypocalcemia. Hypomagnesemia. Anemia in chronic illness. Iron deficiency. LLL PNA. Dementia. P/ Continue current POC and Medications. Change IVF 1/2NS. IV iron as needed. Agree with abx. Encourage nutrition. No NSAIDs. AM labs. Daily weight.
[2018-06-04] MEDS ORDERED: NACHLORIDE 0.45% 1,000 ML IV SCH (23:00)
[2018-06-04] MEDS ORDERED: FUROSEMIDE 40 MG/4 ML VIAL IV ONE (23:45)
[2018-06-05] MEDS: PIPER/TAZO/NS 3.375gm 3.375 GM/100 ML BAG IVPB SCH ×2 (00:26→09:34)
[2018-06-05] MEDS: METRONIDAZOLE 500mg IVPB 500 MG/100 ML BAG IV SCH ×3 (00:26→16:41)
[2018-06-05] MEDS: CODEINE 30MG/APAP 300MG TAB PO PRN (01:47)
[2018-06-05] MEDS: HYDRALAZINE HCL 20 MG/ML VIAL IV PRN (01:48)
[2018-06-05] MEDS: METOPROLOL TAR 25 MG TAB PO SCH ×2 (06:22→17:51)
[2018-06-05] MEDS: ACETAMINOPHEN 500 MG TAB PO PRN ×2 (06:22→12:03)
[2018-06-05] MEDS: PANTOPRAZOLE 40MG TABLET PO SCH (06:22)
[2018-06-05 06:46] LABS: Potassium 3.6 mmol/L (3.5-5.1)
[2018-06-05] MEDS ORDERED: Magnesium Sulfate 2gm IVPB 2 G/50 ML BAG IV ONE (08:00)
[2018-06-05] MEDS ORDERED: POTASSIUM CL SA 10 MEQ TAB PO ONE (08:00)
[2018-06-05] MEDS: ENSURE ENLIVE 237 ML CAN PO SCH ×2 (09:00→21:00)
[2018-06-05] MEDS: DOXYCYCLINE 100 MG CAP PO SCH ×2 (09:34→21:34)
[2018-06-05] MEDS: ENOXAPARIN 30 MG/0.3 ML SQ SCH (09:35)
[2018-06-05] MEDS: LISINOPRIL 10 MG TAB PO SCH (09:35)
[2018-06-05] MEDS: VITAMIN D 5,000 UNIT CAP PO SCH (09:35)
[2018-06-05] MEDS: CALCITROL 0.25 MCG CAP PO SCH (09:35)
[2018-06-05] MEDS ORDERED: levoFLOXacin 500 MG TAB PO ONE (12:00)
--- NOTE | 2018-06-05 12:01 | P.PN ---
Subjective Date of Service: 06/05/18 Primary Care Provider: Unknown Chief Complaint: Weakness, acute renal injury Patient seen and examined at bedside with RN. Chart reviewed. Case discussed With Nephrology and pulmonology. No complaints to offer overnight. Had 4 episodes of BM yesterday and has been improving since then. No complaints to offer this AM Awaiting Placement today Called daughter on the cell phone today but unavailable at this time. message left Review of Systems General: As per HPI Physical Examination - Vital Signs Temperature: 98.4 F Blood Pressure: 132/62 Pulse: 80 Respirations: 20 Pulse Ox (%): 90 - Physical Exam General: Alert, In no apparent distress HEENT: Atraumatic, PERRLA, EOMI Neck: Supple, JVD not distended Respiratory: Clear to auscultation bilaterally, Normal air movement Cardiovascular: Regular rate/rhythm, Normal S1 S2 Gastrointestinal: Normal bowel sounds, No tenderness Musculoskeletal: No tenderness Integumentary: No rashes Neurological: Normal speech, Normal tone, Normal affect Lymphatics: No axilla or inguinal lymphadenopathy - Studies Medications List Reviewed: Yes Assessment & Plan - Problems (Diagnosis) (1) Sepsis Current Visit: Yes Status: Suspected Plan: Sepsis most likely 2.2 to PNA vs Enteritis vs UTI -Urine Culture + for MRSA. -Stool culture + diff -Sputum Culture - thus far -On Doxycycline and Flagyl. DC zosyn and PO levaquin added -Awaiting Placement at the SNF Qualifiers: Sepsis type: methicillin resistant Staphylococcus aureus Qualified Code(s) : A41.02 - Sepsis due to Methicillin resistant Staphylococcus aureus (2) Pneumonia Current Visit: Yes Status: Suspected Plan: Suspected PNA. -Elevated procal, Lactic acid and white count -Cxray with PNA on the left -On doxycycline and levaquin now -pulmonology consulted. appreciate [facility] Qualifiers: Aspiration pneumonia type: unspecified Laterality: left Lung location: lower lobe of lung (3) UTI (urinary tract infection) Onset Date: 05/28/18 Current Visit: Yes Status: Acute Plan: Acute UTI -Urine culture + MRSA Qualifiers: Urinary tract infection type: acute cystitis Hematuria presence: without hematuria Qualified Code(s): N30.00 - Acute cystitis without hematuria (4) Enteritis Current Visit: Yes Status: Acute Plan: -Cdiff + -4 Diarrhea Overnight and Today with 2 so far -Improving overall. -On flagyl (5) Acute renal injury Onset Date: 05/28/18 Current Visit: Yes Status: Acute Plan: Most Likely 2.2 to Dehydration 2.2 to Dementia vs FTT -IV fluids for now -BUN.CR Back to Baseline (6) Failure to thrive in adult Onset Date: 05/28/18 Current Visit: Yes Status: Acute Plan: Dietary Consulted. (7) HTN (hypertension) Onset Date: 10/30/17 Current Visit: No Status: Chronic Qualifiers: Hypertension type: essential hypertension Qualified Code(s): I10 - Essential (primary) hypertension Discharge Plan: Transfer Plan to discharge in: 48 Hours - Code Status/Comfort Care Code Status Assessed: Yes Critical Care: No
[2018-06-05] MEDS: BENZONATATE 100 MG CAP PO PRN ×2 (12:03→21:34)
[2018-06-05] MEDS: ONDANSETRON 4 MG/2 ML VIAL IV PRN (13:50)
[2018-06-05] MEDS: clonazePAM 0.5 MG TAB PO PRN (21:34)
--- NOTE | 2018-06-05 22:04 | P.PN ---
Date of Service: 06/05/18 Vital Signs Temp Pulse Resp BP Pulse Ox 97.2 F 86 16 113/56 L 95 06/05/18 20:00 06/05/18 20:00 06/05/18 20:00 06/05/18 20:00 06/05/18 20:00 Medications Acetaminophen (Tylenol -Extra Strength) 500 mg PO Q4HP PRN PRN Reason: [id number] Stop: 06/26/18 22:48 Last Admin: 06/05/18 12:03 Dose: 500 mg Acetaminophen/Codeine Phosphate (Tylenol W/Codeine #3 Tab) 1 tab PO Q6H PRN PRN Reason: PAIN Stop: 07/03/18 23:08 Last Admin: 06/05/18 01:47 Dose: 1 tab Benzonatate (Tessalon Perle) 200 mg PO TID PRN PRN Reason: COUGH Stop: 06/28/18 22:01 Last Admin: 06/05/18 21:34 Dose: 200 mg Calcitriol (Rocaltrol) 0.5 mcg PO DAILY [facility] Stop: 06/28/18 09:01 Last Admin: 06/05/18 09:35 Dose: 0.5 mcg Cholecalciferol (Vitamin D 5,000 Iu Cap) 5,000 unit PO DAILY [facility] Stop: 06/28/18 09:01 Last Admin: 06/05/18 09:35 Dose: 5,000 unit Clonazepam (Klonopin) 0.5 mg PO TID PRN PRN Reason: ANXIETY Stop: 07/03/18 20:37 Last Admin: 06/05/18 21:34 Dose: 0.5 mg Doxycycline Monohydrate (Vibramycin) 100 mg PO BID [facility]; Protocol Stop: 06/13/18 21:01 Last Admin: 06/05/18 21:34 Dose: 100 mg Enoxaparin Sodium (Lovenox 30 Mg Inj) 30 mg SQ DAILY [facility] Stop: 06/27/18 09:01 Last Admin: 06/05/18 09:35 Dose: 30 mg Hydralazine HCl (Apresoline) 10 mg IV Q6HP PRN PRN Reason: HIGH BP Stop: 07/04/18 23:47 Last Admin: 06/05/18 01:48 Dose: 10 mg Metronidazole/Sodium Chloride (Flagyl 500mg/100 Ml Iv Premix) 500 mg in 100 mls @ 200 mls/hr IV Q8HR [facility]; Protocol Stop: 06/27/18 09:01 Last Admin: 06/05/18 16:41 Dose: 100 mls Levofloxacin (Levaquin) 250 mg PO DAILY [facility] Stop: 07/06/18 09:01 Lisinopril (Prinivil) 10 mg PO DAILY [facility] Stop: 07/03/18 09:01 Last Admin: 06/05/18 09:35 Dose: 10 mg Magnesium Chloride (Slow-Mag) 64 mg PO BID [facility] Stop: 07/06/18 09:01 Metoprolol Tartrate (Lopressor) 25 mg PO BID 6AM 6PM [facility] Stop: 06/27/18 18:01 Last Admin: 06/05/18 17:51 Dose: 25 mg Nutritional Formula (Ensure Enlive) 237 ml PO BID [facility] Stop: 06/28/18 21:01 Last Admin: 06/05/18 21:00 Dose: Not Given Ondansetron HCl (Zofran) 4 mg IV Q6HP PRN PRN Reason: NAUSEA / VOMITING Stop: 06/26/18 22:48 Last Admin: 06/05/18 13:50 Dose: 4 mg Pantoprazole Sodium (Protonix Tab) 40 mg PO DAILYAC [facility] Stop: 06/28/18 06:31 Last Admin: 06/05/18 06:22 Dose: 40 mg Sodium Chloride (Normal Saline Flush) 10 ml IV BID [facility] Stop: 06/26/18 22:48 Last Admin: 06/05/18 21:35 Dose: 10 ml Assessment/ Plan: Nephrology. CPS stable without CP or SOB. +BM No acute events overnight. Limited IH/ ROS due to dementia. Vitals, medications, blood work and imaging reviewed in the chart. General: Alert, In no apparent distress, Cooperative HEENT: Normocephalic Neck: Supple Respiratory: Clear to auscultation bilaterally Cardiovascular: No edema, Regular rate/rhythm, No rubs Gastrointestinal: Soft and benign, Non-distended, No guarding Musculoskeletal: No clubbing, No contractures Integumentary: No rashes, No cyanosis Neurological: Normal speech Blood work reviewed in the chart. Hgb 9.5; Cr 2.8 Imagings Data: Reason for Exam: Acute renal failure Report Status: Signed EXAM DESCRIPTION: US - Renal Ultrasound-Complete - 05/28/2018 9:03 am CLINICAL HISTORY: Acute renal failure COMPARISON: May 28 CT imaging FINDINGS: The right kidney measures 10.0 x 4.1 x 3.9 cm. The left kidney measures 7.6 x 4.5 x 3.1 cm. Cortical thickness is normal. Cortical echogenicity is only slightly increased. This could be body habitus artifact or a minimal underlying medical renal disease. No hydronephrosis or suspicious renal mass. No bladder wall thickening or mass. No intraluminal stone or mass. IMPRESSION: No hydronephrosis or suspicious renal mass. Minimal increase in renal cortical echogenicity could be body habitus artifact or mild medical renal disease. EXAM DESCRIPTION: CT - Abdomen Wo Contrast - 05/28/2018 8:48 am CLINICAL HISTORY: Sepsis, abdominal pain, diarrhea COMPARISON: None. TECHNIQUE: Axial [address] imaging of the abdomen was performed. No IV contrast was administered. No oral contrast administered. All CT scans are performed using dose optimization technique as appropriate and may include automated exposure control or mA/KV adjustment according to patient size. FINDINGS: Patchy interstitial and alveolar opacities are present in the posterior left lung base. No significant right lung field finding. There is some minimal scarring and nodularity favored to be chronic. No pericardial effusion. The liver, spleen, and pancreas show no suspicious findings for non IV contrast imaging. Gallbladder and biliary tree are without suspicious finding. Gallstones can be occult on CT imaging. No hydronephrosis or suspicious renal mass. Isodense masses and pyelonephritis are not excluded on a non IV contrast study. No adrenal abnormality. No dilated bowel loops or bowel wall thickening. No free air, free fluid or inflammatory stranding. No hernia, mass or bulky lymphadenopathy. Bony degenerative changes are present. Dense arterial tree calcifications are present. Exam was ordered as CT abdomen. No imaging of the pelvis performed. Exam sensitivity is decreased when no IV contrast is administered. IMPRESSION: CT abdomen imaging shows no free air, bowel obstruction or surgically emergent finding. Patchy pneumonia changes posterior left lung base. No acute abdomen or pelvis finding. Assessment is limited in the absence of oral and IV contrast. Conclusions/Impression: A/ SUSAN likely due to hypovolemia. Acidosis in the setting of diarrhea/ SUSAN. Hypocalcemia. Hypomagnesemia. Anemia in chronic illness. Iron deficiency. LLL PNA. Dementia. P/ Continue current POC and Medications. Agree with IV magnesium. Start Slo-mag. IVF as needed. IV iron as needed. Agree with abx. Encourage nutrition. No NSAIDs. AM labs. Daily weight.
[2018-06-06] MEDS: METRONIDAZOLE 500mg IVPB 500 MG/100 ML BAG IV SCH ×3 (00:54→16:39)
[2018-06-06 04:39] LABS: Absolute Lymphocytes (CBC) 1.8 K/uL (0.7-4.9); Absolute Monocytes 1.3 K/uL (0.1-1.3); Absolute Neutrophil 10.2 K/uL (1.8-8.0); Basophils % 0.1 % (0-1.3); Eosinophils % 0.6 % (0-4.4); Hematocrit 28.8 % (36.0-45.0); Lymphocytes % 13.3 % (15.3-44.8); Monocytes % 9.5 % (3.3-12.3); RBC Red Blood Cell Count 2.91 M/uL (3.86-4.86)
[2018-06-06 04:55] LABS: Magnesium 1.7 mg/dL (1.8-2.4); Phosphorus 2.9 mg/dL (2.5-4.9); Potassium 3.9 mmol/L (3.5-5.1); Uric Acid 5.2 mg/dL (2.6-6.0)
[2018-06-06] MEDS ORDERED: Magnesium Sulfate 2gm IVPB 2 G/50 ML BAG IV ONE (04:59)
[2018-06-06] MEDS ORDERED: POTASSIUM 25 MEQ EFFERV TAB PO ONE (05:00)
[2018-06-06] MEDS: PANTOPRAZOLE 40MG TABLET PO SCH (05:41)
[2018-06-06] MEDS: METOPROLOL TAR 25 MG TAB PO SCH ×2 (05:41→17:21)
[2018-06-06] MEDS: CODEINE 30MG/APAP 300MG TAB PO PRN (05:58)
[2018-06-06 06:13] LABS: Urine Appearance CLEAR; Urine Bilirubin NEGATIVE (NEG); Urine Blood NEGATIVE (NEG); Urine Color YELLOW; Urine Glucose NEGATIVE (NEG); Urine Protein NEGATIVE (NEG); Urine Specific Gravity 1.015 (1.005-1.030); Urine Urobilinogen 0.2 mg/dL (0.2-1.0); Urine pH 6.5 (5.0-7.0)
[2018-06-06 06:25] LABS: Urine Bacteria <20 /HPF (<20); Urine Culture Reflex Order REFLEXED; Urine RBC NONE SEEN /HPF (NONE SEEN)
[2018-06-06 06:26] LABS: Urine Yeast PRESENT (NONE SEEN); Urine Yeast with Hyphae PRESENT
[2018-06-06] MEDS: BENZONATATE 100 MG CAP PO PRN ×2 (08:30→17:22)
[2018-06-06] MEDS: ENOXAPARIN 30 MG/0.3 ML SQ SCH (08:30)
[2018-06-06] MEDS: levoFLOXacin 250 MG TAB PO SCH (08:31)
[2018-06-06] MEDS: DOXYCYCLINE 100 MG CAP PO SCH ×2 (08:31→21:13)
[2018-06-06] MEDS: VITAMIN D 5,000 UNIT CAP PO SCH (08:31)
[2018-06-06] MEDS: CALCITROL 0.25 MCG CAP PO SCH (08:31)
[2018-06-06] MEDS: LISINOPRIL 10 MG TAB PO SCH (08:34)
[2018-06-06] MEDS: ENSURE ENLIVE 237 ML CAN PO SCH ×2 (08:35→21:00)
[2018-06-06] MEDS: MAGNESIUM CHLORIDE 64 MG TAB PO SCH ×2 (10:57→21:08)
[2018-06-06] MEDS: ACETAMINOPHEN 500 MG TAB PO PRN (11:13)
[2018-06-06] MEDS: clonazePAM 0.5 MG TAB PO PRN ×2 (11:14→21:08)
--- NOTE | 2018-06-06 11:44 | RAD REPORT ---
EXAM DESCRIPTION: [facility] Single View06/06/2018 11:34 am CLINICAL HISTORY: Chest pain COMPARISON: June 03, 2018 FINDINGS: No significant change in a left lung consolidation. No other change is noted IMPRESSION: No significant change in a left lung consolidation consistent with pneumonia
--- NOTE | 2018-06-06 13:12 | P.PN ---
Subjective Date of Service: 06/06/18 Primary Care Provider: Unknown Chief Complaint: Weakness, acute renal injury Patient seen and examined at bedside with RN. Chart reviewed. Case discussed With Nephrology and pulmonology. No complaints to offer overnight. Had 2 episodes of BM yesterday and has been improving c/o of feeling weak and having Coughing that is causing her NAVA Awaiting Placement today Called daughter on the cell phone today again but unavailable at this time. message left Review of Systems General: As per HPI Physical Examination - Vital Signs Temperature: 98.8 F Blood Pressure: 108/55 Pulse: 76 Respirations: 16 Pulse Ox (%): 97 - Physical Exam General: Alert, Oriented x2, Mild distress HEENT: Atraumatic, PERRLA, EOMI Neck: Supple, JVD not distended Respiratory: Normal air movement, Expiratory wheezes, Inspiratory wheezes, Rhonchi/gurgles Cardiovascular: Regular rate/rhythm, Normal S1 S2 Gastrointestinal: Normal bowel sounds, No tenderness Musculoskeletal: No tenderness Integumentary: No rashes Neurological: Normal speech, Normal tone, Normal affect Lymphatics: No axilla or inguinal lymphadenopathy - Studies Medications List Reviewed: Yes Assessment & Plan - Problems (Diagnosis) (1) Sepsis Current Visit: Yes Status: Suspected Plan: Sepsis most likely 2.2 to PNA vs Enteritis vs UTI -Urine Culture + for MRSA. -Stool culture + diff -Sputum Culture - thus far -On Doxycycline and Flagyl. PO levaquin -Awaiting Placement at the SNF -Xray today with no change. Will get CT of the chest to evaluate for PNA Qualifiers: Sepsis type: methicillin resistant Staphylococcus aureus Qualified Code(s) : A41.02 - Sepsis due to Methicillin resistant Staphylococcus aureus (2) Pneumonia Current Visit: Yes Status: Suspected Plan: Suspected PNA. -Elevated procal, Lactic acid and white count -Cxray with PNA on the left with no changes. Will get CT chest -On doxycycline and levaquin now -pulmonology consulted. appreciate [facility] Qualifiers: Aspiration pneumonia type: unspecified Laterality: left Lung location: lower lobe of lung (3) UTI (urinary tract infection) Onset Date: 05/28/18 Current Visit: Yes Status: Acute Plan: Acute UTI -Urine culture + MRSA Qualifiers: Urinary tract infection type: acute cystitis Hematuria presence: without hematuria Qualified Code(s): N30.00 - Acute cystitis without hematuria (4) Enteritis Current Visit: Yes Status: Acute Plan: -Cdiff + -2 Diarrhea Overnight and Today with 2 so far -Improving overall. -On flagyl (5) Acute renal injury Onset Date: 05/28/18 Current Visit: Yes Status: Acute Plan: Most Likely 2.2 to Dehydration 2.2 to Dementia vs FTT -IV fluids for now -BUN.CR Back to Baseline (6) Failure to thrive in adult Onset Date: 05/28/18 Current Visit: Yes Status: Acute Plan: Dietary Consulted. (7) HTN (hypertension) Onset Date: 10/30/17 Current Visit: No Status: Chronic Qualifiers: Hypertension type: essential hypertension Qualified Code(s): I10 - Essential (primary) hypertension Discharge Plan: Long Term Plan to discharge in: 48 Hours - Code Status/Comfort Care Code Status Assessed: Yes Critical Care: No
--- NOTE | 2018-06-06 14:40 | RAD REPORT ---
EXAM DESCRIPTION: CT - Thorax Wo Con - 06/06/2018 2:27 pm CLINICAL HISTORY: sob COMPARISON: Chest x-ray June 06, 2018 TECHNIQUE: Computed axial tomography of the chest was obtained. Contrast was not requested. All CT scans are performed using dose optimization technique as appropriate and may include automated exposure control or mA/KV adjustment according to patient size. FINDINGS: The evaluation of mediastinum, sohail and vessels is limited secondary to lack of IV contras t administration. A 5 centimeter area of is present within the posterior left upper lobe. Additional areas of consolida tion are seen within the left lower lobe. Mild patchy alveolar opacities are scattered within the lef t lung. Mild additional interstitial lung opacities are noted. A couple of borderline enlarged mediastinal lymph nodes may be reactive in nature. A small left pleural effusion is present. A pericardial effusion is not seen. Coronary arterial calcifications are noted. IMPRESSION: Areas of consolidation within the left lung with additional mild patchy alveolar lung op acities consistent with pneumonia. This should be followed until it has cleared to help exclude a pos t obstructive process/underlying mass
--- NOTE | 2018-06-06 18:51 | PN ---
Date of Progress Note: 06/06/2018 Subjective: The patient is doing okay, was seen and examined at bedside. She feels well, otherwise offers no other complaints. Physical Examination: Vital signs: Have been reviewed and are stable. General examination: She appears in no acute distress. She is elderly, weak, and cachectic. HEENT: Atraumatic head. Lungs: Auscultation of lungs revealed decreased breath sounds on the right lung. Abdomen: Soft and nontender. Extremities: Without any evidence of edema. Current Medications: Include calcitriol, vitamin D, Klonopin, Tylenol with codeine, doxycycline 100 mg b.i.d., Ensure, Levaquin 250 mg a day, lisinopril 10 mg a day, magnesium chloride 64 mg b.i.d., IV magnesium supplements, and potassium supplements. Laboratory Data: Showing magnesium of 2.7 and repeat was 1.7 this morning. Creatinine is stable at 1.2, BUN is 27, and other electrolytes are stable. CBC showing mild leukocytosis. Impression: 1.Acute on chronic renal insufficiency, currently with overall stable renal function. 2.Electrolyte abnormalities including hypokalemia and hypomagnesemia. Magnesium is being repleted. The patient is encouraged p.o. intake. Continue oral magnesium supplementation. 3.Pneumonia. Remains on antibiotics. 4.Anemia of chronic illness, stable. 5.Dementia, stable. Plan: The patient is overall doing okay. Continue p.o. magnesium sulfate. Continue with antibiotic s and encourage nutrition. GALINDO/PATRICIA Voice ID: [id number] Report ID: [id number]
[2018-06-07] MEDS: METRONIDAZOLE 500mg IVPB 500 MG/100 ML BAG IV SCH ×2 (00:13→09:51)
[2018-06-07] MEDS: ACETAMINOPHEN 500 MG TAB PO PRN (00:14)
[2018-06-07] MEDS: BENZONATATE 100 MG CAP PO PRN (00:14)
[2018-06-07] MEDS: HYDRALAZINE HCL 20 MG/ML VIAL IV PRN (04:36)
[2018-06-07 05:00] LABS: Potassium 4.3 mmol/L (3.5-5.1)
[2018-06-07] MEDS: METOPROLOL TAR 25 MG TAB PO SCH ×2 (06:05→18:12)
[2018-06-07] MEDS: PANTOPRAZOLE 40MG TABLET PO SCH (06:05)
[2018-06-07] MEDS: ENSURE ENLIVE 237 ML CAN PO SCH ×2 (09:00→21:00)
[2018-06-07] MEDS: ENOXAPARIN 30 MG/0.3 ML SQ SCH (09:50)
[2018-06-07] MEDS: CALCITROL 0.25 MCG CAP PO SCH (09:50)
[2018-06-07] MEDS: DOXYCYCLINE 100 MG CAP PO SCH ×2 (09:51→21:28)
[2018-06-07] MEDS: VITAMIN D 5,000 UNIT CAP PO SCH (09:51)
[2018-06-07] MEDS: MAGNESIUM CHLORIDE 64 MG TAB PO SCH ×2 (09:51→21:28)
[2018-06-07] MEDS: CODEINE 30MG/APAP 300MG TAB PO PRN (09:51)
[2018-06-07] MEDS: levoFLOXacin 250 MG TAB PO SCH (09:53)
[2018-06-07] MEDS: LISINOPRIL 10 MG TAB PO SCH (09:53)
[2018-06-07] MEDS: clonazePAM 0.5 MG TAB PO PRN (14:43)
--- NOTE | 2018-06-07 17:10 | PN ---
Date of Progress Note: 06/07/2018 Code status: Full Subjective: The patient seen and examined. Chart reviewed and case discussed with RN. Spoke with daughter on the phone and treatment plan explained, all questions answered. The patient is still having multiple episodes of diarrhea. Feels very weak and mainly in bed, but does get up and sit on the chair. Review of Systems: Negative except as above. Medications: List reviewed. Physical Examination: Vital Signs: Temperature 97.3, heart rate 88, blood pressure 116/55, respirations 16, O2 of 96% on 4 L via nasal cannula. General: Awake, alert, oriented x3, in some mild distress. Ill-appearing, cachectic female. BMI of 14.8. CV: S1, S2. No murmurs. Respiratory: Diminished breath sounds at the bases. Some rales heard. No wheezing. Gastrointestinal: Abdomen is soft, nontender, nondistended. Positive bowel sounds. No guarding or rigidity. Extremities: No clubbing, cyanosis, edema. Neurologic: Nonfocal. Laboratory Data: Sodium 137, potassium 4.3, chloride 98, CO2 of 36, BUN 26, creatinine 0.9, glucose 108, calcium 8.7, magnesium 2. CBC is pending. Assessment And Plan: 1. Sepsis secondary to pneumonia and Clostridium difficile. Urine culture positive for methicillin-resistant Staphylococcus aureus. Stool culture positive for Clostridium difficile. Sputum culture negative to date. We will continue antibiotics. The patient currently on doxycycline and Flagyl and Levaquin. 2. Pneumonia. Chest x-ray did not show much improvement. We will continue doxycycline and Levaquin. Pulmonology on board. Continue with incentive spirometer. 3. Urinary tract infection, acute cystitis without hematuria secondary to methicillin-resistant Staphylococcus aureus. Continue antibiotics. 4. Clostridium difficile colitis. Still having significant episodes of diarrhea and 4 episodes overnight, improving slowly. We will switch from Flagyl to p.o. vancomycin. 5. Acute kidney injury. Creatinine back to baseline. We will continue to monitor IV fluids. 6. Severe protein calorie malnutrition. BMI 14.8. 7. Essential hypertension, stable. Plan: Adjust antibiotics. We will continue to monitor. Social Work assisting family with possible discharge plans to [facility]. Pending insurance. /PATRICIA Voice ID: [id number] Report ID: [id number] MTDHolly
[2018-06-07] MEDS: VANCOMYCIN ORAL SOLN 250 MG/5 ML OSYR PO SCH ×2 (18:12→23:19)
[2018-06-08] MEDS: HYDRALAZINE HCL 20 MG/ML VIAL IV PRN (00:38)
[2018-06-08] MEDS: ACETAMINOPHEN 500 MG TAB PO PRN ×2 (04:30→11:10)
[2018-06-08 05:13] LABS: Absolute Lymphocytes (CBC) 1.9 K/uL (0.7-4.9); Absolute Monocytes 1.1 K/uL (0.1-1.3); Absolute Neutrophil 8.5 K/uL (1.8-8.0); Basophils % 0.2 % (0-1.3); Eosinophils % 0.3 % (0-4.4); Hematocrit 28.8 % (36.0-45.0); Lymphocytes % 16.8 % (15.3-44.8); MCV 97.7 fL (80-100); Monocytes % 9.4 % (3.3-12.3); RBC Red Blood Cell Count 2.95 M/uL (3.86-4.86)
[2018-06-08 05:33] LABS: AST/SGOT 20 U/L (15-37); Albumin 2.2 g/dL (3.4-5.0); Alkaline Phosphatase 54 U/L (45-117); BUN Blood Urea Nitrogen 24 mg/dL (7-18); Bicarbonate 34 mmol/L (21-32); Bilirubin Total 0.2 mg/dL (0.2-1.0); Glucose Level 108 mg/dL (74-106); Potassium 4.1 mmol/L (3.5-5.1); Protein, Total 6.8 g/dL (6.4-8.2); Sodium Level 136 mmol/L (136-145)
[2018-06-08 05:34] LABS: ALT/SGPT < 6 U/L (12-78)
[2018-06-08] MEDS: PANTOPRAZOLE 40MG TABLET PO SCH (05:52)
[2018-06-08] MEDS: METOPROLOL TAR 25 MG TAB PO SCH ×2 (05:52→17:27)
[2018-06-08] MEDS: VANCOMYCIN ORAL SOLN 250 MG/5 ML OSYR PO SCH ×3 (05:52→17:28)
[2018-06-08] MEDS: CALCITROL 0.25 MCG CAP PO SCH (08:34)
[2018-06-08] MEDS: LISINOPRIL 10 MG TAB PO SCH (08:34)
[2018-06-08] MEDS: DOXYCYCLINE 100 MG CAP PO SCH ×2 (08:34→21:11)
[2018-06-08] MEDS: VITAMIN D 5,000 UNIT CAP PO SCH (08:34)
[2018-06-08] MEDS: ENOXAPARIN 30 MG/0.3 ML SQ SCH (08:34)
[2018-06-08] MEDS: levoFLOXacin 250 MG TAB PO SCH (08:35)
[2018-06-08] MEDS: ENSURE ENLIVE 237 ML CAN PO SCH ×2 (08:36→21:00)
[2018-06-08] MEDS: MAGNESIUM CHLORIDE 64 MG TAB PO SCH ×2 (11:58→21:11)
[2018-06-08] MEDS ORDERED: FLUCONAZOLE 100 MG TAB PO ONE (12:49)
--- NOTE | 2018-06-08 13:00 | P.PN ---
Subjective Date of Service: 06/08/18 Primary Care Provider: Unknown Chief Complaint: Pneumonia Subjective: Improving (Patient is improving doing much better wants to go home) Review of Systems General: Weakness Respiratory: Cough, Shortness of Breath Physical Examination - Vital Signs Temperature: 98.0 F Blood Pressure: 150/60 Pulse: 70 Respirations: 16 Pulse Ox (%): 95 - Physical Exam General: Alert, Oriented x3 Neck: Supple Respiratory: Clear to auscultation bilaterally Cardiovascular: No edema, Normal pulses - Studies Medications List Reviewed: Yes Assessment & Plan - Problems (Diagnosis) (1) Pneumonia Current Visit: Yes Status: Acute Plan: Patient has a pneumonia in the left lung on the CT scan clinically she is improving doing much better white count is declining cultures are negative apart for Mr in the urine patient can be discharged home on levofloxacin patient says some 97% on 3 L will titrate sat to 90% repeat ABGs patient was hypoxic on room air recent sat was 86% there is no evidence of pulmonary fibrosis apart from consolidation in the left lung will tried on some prednisone for 1 or 2 days to see 1st Qualifiers: Pneumonia type: due to unspecified organism
[2018-06-08] MEDS: predniSONE 20 MG TAB PO SCH ×2 (13:47→21:11)
[2018-06-08 14:11] LABS: Arterial Blood Carboxyhemoglob 1.4 % (0-1.5); Blood Gas Oxyhemoglobin 88.2 % (94-97); Blood O2 Saturation 89.8 % (92-98.5)
--- NOTE | 2018-06-08 17:36 | PN ---
Date of Progress Note: 06/08/2018 Subjective: The patient seen and examined. Chart reviewed and case discussed with RN and pillowcase sewer. The patient states she is feeling better, had 2 episodes of diarrhea last night, however more formed. No abdominal pain. The patient states she does get short of breath with exertion. I spoke with Dr. Dodge concerning the patient's lung function as well. Review of Systems: Negative except as above. Medications: List reviewed. Physical Examination: Vital Signs: Temperature 98, heart rate 70, blood pressure 150/60, respirations 16, O2 95% on 3 L via nasal cannula. General: Awake, alert, and oriented x3, in no acute distress, cachectic female , BMI 14.9, frail, elderly. CV: S1, S2. Peripheral pulses present. Respiratory: Diminished breath sounds at the bases. No wheezing or stridor. No use of accessory muscles. Gastrointestinal: Abdomen is soft, nontender, nondistended. Positive bowel sounds. Extremities: No clubbing, cyanosis, or edema. Neurologic: Nonfocal. Laboratory Data: Sodium 136, potassium 4.1, chloride 97, CO2 34, BUN 24, creatinine 0.8, glucose 108, lactate 0.9, calcium 9.1, albumin 2.2. WBC 11.6, H and H 9.7 and 28.8, platelets 372, neutrophils 73%. Blood cultures, no growth. Final urine culture shows MRSA, repeat urine culture shows 4+ yeast. C diff assay is positive. Sputum culture shows normal philomena. Assessment: A 77-year-old female with: 1. Sepsis secondary to pneumonia, Clostridium difficile and urinary tract infection. Urine culture growing methicillin-resistant Staphylococcus aureus, repeat culture shows yeast. We will add Diflucan. Stool culture positive for C diff. Sputum culture negative. We will continue antibiotics and add Diflucan. 2. Pneumonia. We will continue doxycycline and Levaquin. Appreciate Pulmonology input. 3. Urinary tract infection, acute cystitis without hematuria secondary to methicillin-resistant Staphylococcus aureus. Repeat cultures negative. We will adjust antibiotics. 4. Clostridium difficile colitis. Continue oral vancomycin. Diarrhea is improving. 5. Acute kidney injury. Creatinine back to baseline. We will continue to monitor IV fluids. 6. Severe protein-calorie malnutrition. Albumin is 2.2, BMI 14.8. Continue with supplements. 7. Essential hypertension, stable. Plan: The patient unfortunately does not have any further SNF benefits, we will contact the daughter regarding discharge to home and the patient will need to be set up with home O2. DESIREE Voice ID: [id number] Report ID: [id number] MTDHolly
[2018-06-08] MEDS: CODEINE 30MG/APAP 300MG TAB PO PRN (21:11)
[2018-06-08] MEDS: clonazePAM 0.5 MG TAB PO PRN (21:59)
[2018-06-09] MEDS: VANCOMYCIN ORAL SOLN 250 MG/5 ML OSYR PO SCH ×4 (00:08→17:07)
[2018-06-09] MEDS: HYDRALAZINE HCL 20 MG/ML VIAL IV PRN (04:36)
[2018-06-09] MEDS: METOPROLOL TAR 25 MG TAB PO SCH ×2 (05:36→17:06)
[2018-06-09] MEDS: PANTOPRAZOLE 40MG TABLET PO SCH (05:36)
[2018-06-09 05:58] LABS: Absolute Lymphocytes (CBC) 0.6 K/uL (0.7-4.9); Absolute Monocytes 0.1 K/uL (0.1-1.3); Absolute Neutrophil 4.2 K/uL (1.8-8.0); Basophils % 0.1 % (0-1.3); Hematocrit 32.4 % (36.0-45.0); Lymphocytes % 12.1 % (15.3-44.8); MCH 33.1 pg (27.0-35.0); MCV 98.5 fL (80-100); MPV 8.2 fL (7.6-11.3); Monocytes % 1.9 % (3.3-12.3); RBC Red Blood Cell Count 3.29 M/uL (3.86-4.86)
[2018-06-09 06:21] LABS: Albumin 2.3 g/dL (3.4-5.0); Bilirubin Total 0.2 mg/dL (0.2-1.0); Blood Morphology Comment NOT SEEN (NOT SEEN); Platelet Estimate INCR; Potassium 3.9 mmol/L (3.5-5.1); Protein, Total 7.4 g/dL (6.4-8.2)
[2018-06-09] MEDS: CODEINE 30MG/APAP 300MG TAB PO PRN ×2 (06:27→21:14)
[2018-06-09] MEDS: ENSURE ENLIVE 237 ML CAN PO SCH ×2 (09:00→21:00)
[2018-06-09] MEDS ORDERED: POTASSIUM CL SA 10 MEQ TAB PO ONE (09:00)
[2018-06-09 09:17] LABS: CKMB Creatine Kinase MB 1.1 ng/mL (0.3-3.6)
[2018-06-09] MEDS: VITAMIN D 5,000 UNIT CAP PO SCH (09:40)
[2018-06-09] MEDS: LISINOPRIL 10 MG TAB PO SCH (09:40)
[2018-06-09] MEDS: CALCITROL 0.25 MCG CAP PO SCH (09:40)
[2018-06-09] MEDS: DOXYCYCLINE 100 MG CAP PO SCH ×2 (09:41→21:15)
[2018-06-09] MEDS: levoFLOXacin 250 MG TAB PO SCH (09:41)
[2018-06-09] MEDS: ENOXAPARIN 30 MG/0.3 ML SQ SCH (09:41)
[2018-06-09] MEDS: predniSONE 20 MG TAB PO SCH ×2 (09:41→21:02)
[2018-06-09] MEDS: MAGNESIUM CHLORIDE 64 MG TAB PO SCH ×2 (09:41→21:03)
[2018-06-09] MEDS: clonazePAM 0.5 MG TAB PO PRN (17:06)
[2018-06-09] MEDS: ACETAMINOPHEN 500 MG TAB PO PRN (17:07)
--- NOTE | 2018-06-09 18:39 | PN ---
Subjective: Currently, the patient is sitting in bed. She looks exhausted. No chest pain. No abdo cony pain. No fever overnight. Her daughter is not at bedside, still not sure if she can take her home according to the nurse. Labs today showed CBC, hemoglobin at 10.9, white blood cells 4.9, platelets 434. Chemistry within no rmal except for BUN at 28. LFTs within normal. Urine is negative. Assessment And Plan: 1.Sepsis secondary to pneumonia, Clostridium difficile urinary tract infection. Urine culture was p ositive for methicillin-resistant Staphylococcus aureus. antibiotic. Stool culture was p ositive for Clostridium difficile. Sputum culture was negative. The patient is currently on doxycyc line, Levaquin, and oral vancomycin. 2.Pneumonia, continued to improve. The patient is on Levaquin. 3.Urinary tract infection with methicillin-resistant Staphylococcus aureus. Blood culture is negati ve. The patient is on doxycycline. 4.Acute renal failure, resolved. Appreciate Nephrology input. 5.Severe protein-calorie malnutrition, advised to use protein supplement. 6.Hypertension, well controlled. 7.Hypoxia, the patient will need home oxygen. 8.Discharge plan will depend on the daughter because the patient has no benefit with the SNF and the daughter feels she is overwhelmed and she wanted to take care of her mother, so we are trying to pro viding any Home Health to home. 9.Deep vein thrombosis prophylaxis, on Lovenox. JOHN Voice ID: [id number] Report ID: [id number]
[2018-06-10] MEDS: VANCOMYCIN ORAL SOLN 250 MG/5 ML OSYR PO SCH ×5 (00:57→23:52)
[2018-06-10] MEDS: METOPROLOL TAR 25 MG TAB PO SCH ×2 (05:06→17:36)
[2018-06-10] MEDS: clonazePAM 0.5 MG TAB PO PRN ×2 (05:29→22:09)
[2018-06-10] MEDS: PANTOPRAZOLE 40MG TABLET PO SCH (05:30)
[2018-06-10 06:22] LABS: Potassium 4.9 mmol/L (3.5-5.1)
--- NOTE | 2018-06-10 06:32 | EKG ---
Test Date: 2018-06-09 Test Time: 08:24:14 Rn Digestive: ISMAEL MEASUREMENT RESULTS: Intervals: Rate: 77 FL: 128 QRSD: 78 QT: 428 QTc: 484 [place]: P: 78 FL: 128 QRS: 41 T: 60 INTERPRETIVE STATEMENTS: Normal sinus rhythm Normal ECG Compared to ECG 05/27/2018 16:35:49 No significant changes Electronically Signed On 06-10-18 06:30:44 CDT by Sergio Mesa
[2018-06-10 07:01] LABS: Magnesium 1.9 mg/dL (1.8-2.4)
[2018-06-10] MEDS: ENSURE ENLIVE 237 ML CAN PO SCH ×2 (08:55→21:00)
[2018-06-10] MEDS: ENOXAPARIN 30 MG/0.3 ML SQ SCH (08:56)
[2018-06-10] MEDS: CALCITROL 0.25 MCG CAP PO SCH (08:56)
[2018-06-10] MEDS: levoFLOXacin 250 MG TAB PO SCH (08:57)
[2018-06-10] MEDS: MAGNESIUM CHLORIDE 64 MG TAB PO SCH ×2 (08:57→22:02)
[2018-06-10] MEDS: ACETAMINOPHEN 500 MG TAB PO PRN (08:57)
[2018-06-10] MEDS: DOXYCYCLINE 100 MG CAP PO SCH ×2 (08:58→22:03)
[2018-06-10] MEDS: VITAMIN D 5,000 UNIT CAP PO SCH (08:58)
[2018-06-10] MEDS: predniSONE 20 MG TAB PO SCH (08:58)
[2018-06-10] MEDS: LISINOPRIL 10 MG TAB PO SCH (08:58)
[2018-06-10] MEDS ORDERED: predniSONE 10 MG TAB PO SCH (11:00)
[2018-06-10 11:18] LABS: Arterial Blood Carboxyhemoglob 1.2 % (0-1.5); Blood Gas Oxyhemoglobin 89.9 % (94-97); Blood O2 Saturation 91.5 % (92-98.5)
[2018-06-10] MEDS: NA CHLORIDE 0.9% 1,000 ML IV SCH ×2 (13:03→23:52)
--- NOTE | 2018-06-10 18:10 | PN ---
Subjective: Currently, the patient is lying in bed. She looks comfortable. She is sleeping. She had no chest pain. No abdominal pain. The daughter lost her car and she can not have a ride to pickup the patient, so discharge still on hold. Review of Systems: Otherwise negative. Objective: Vital Signs: Blood pressure 145/63, respiratory rate 17, pulse 71, temperature 98.8. General: The patient is alert, oriented x3. Does not look in distress. HEENT: Atraumatic, normocephalic. PERRLA. Oral mucosa is moist. Neck: Supple. No JVD. No carotid bruits. Chest: Clear to auscultation. Good air entry. Heart: Regular rate and rhythm. S1, S2 normal. No gallop or murmur. Abdomen: Soft, nontender. No masses. No hepatosplenomegaly. Positive bowel sounds. Extremities: No clubbing, cyanosis, or edema. No calf tenderness. Neurologic: Grossly intact. Laboratory Data: Today showed CBC within normal. White blood cells 4.9, HGB 10.9, platelet 434. Chemistry was within normal except for BUN going up to 43. GFR going down to 44. Glucose 142. Assessment And Plan: 1. Sepsis secondary to pneumonia as well as Clostridium difficile and urinary tract infection. Urine cultures so far positive for methicillin-resistant Staphylococcus aureus. Stool culture positive for Clostridium difficile. Sputum culture was negative. The patient currently on doxycycline for her methicillin-resistant Staphylococcus aureus and oral vancomycin for her clostridium difficile. 2. Pneumonia, better. The patient off oxygen. She is on Levaquin. She will need total of 10 days. 3. Urinary tract infection with methicillin-resistant Staphylococcus aureus. Blood culture so far negative for methicillin-resistant Staphylococcus aureus. The patient is on doxycycline and Levaquin. 4. Clostridium difficile colitis. The patient on vancomycin. Bowel movement back to normal. 5. Acute renal failure resolved initially but now BUN is creeping up. So I will start the patient on IV fluid at 75 mL/hour. 6. Severe protein-calorie malnutrition. Advised to drink Ensure with each meal. 7. Hypertension, well controlled today. 8. Hypoxemia resolved secondary to pneumonia. The patient is off oxygen. 9. Discharge plan is too complicated as pt insurance will not approve LTAC SNF and pt have to be Dc with family, Daughter is not showing up to hospital anymore and she claiming that she had no transportation to fruit picker machine operator her mother. We will need social work involvement tomorrow to coordinate discharge plan and see if we can provide the patient with transportation to her daughter's house. 10. Deep vein thrombosis prophylaxis, on Lovenox. LOS/PATRICIA Voice ID: [id number] Report ID: [id number] MICHELLE
[2018-06-10] MEDS: predniSONE 10 MG TAB PO SCH (22:02)
[2018-06-11] MEDS: ACETAMINOPHEN 500 MG TAB PO PRN ×3 (03:28→16:57)
[2018-06-11 04:31] LABS: Absolute Lymphocytes (CBC) 1.2 K/uL (0.7-4.9); Absolute Monocytes 0.6 K/uL (0.1-1.3); Basophils % 0.1 % (0-1.3); Hematocrit 31.3 % (36.0-45.0); Lymphocytes % 17.8 % (15.3-44.8); MCH 32.7 pg (27.0-35.0); MCV 97.6 fL (80-100); MPV 8.5 fL (7.6-11.3); Monocytes % 8.2 % (3.3-12.3); RBC Red Blood Cell Count 3.21 M/uL (3.86-4.86)
[2018-06-11 04:37] LABS: Albumin 2.1 g/dL (3.4-5.0); Bilirubin Total 0.2 mg/dL (0.2-1.0); Potassium 4.2 mmol/L (3.5-5.1); Protein, Total 6.7 g/dL (6.4-8.2)
[2018-06-11] MEDS: METOPROLOL TAR 25 MG TAB PO SCH ×2 (05:52→16:58)
[2018-06-11] MEDS: VANCOMYCIN ORAL SOLN 250 MG/5 ML OSYR PO SCH ×3 (05:52→16:57)
[2018-06-11] MEDS: PANTOPRAZOLE 40MG TABLET PO SCH (05:53)
[2018-06-11] MEDS: MAGNESIUM CHLORIDE 64 MG TAB PO SCH (08:54)
[2018-06-11] MEDS: VITAMIN D 5,000 UNIT CAP PO SCH (08:55)
[2018-06-11] MEDS: CALCITROL 0.25 MCG CAP PO SCH (08:55)
[2018-06-11] MEDS: predniSONE 10 MG TAB PO SCH (08:55)
[2018-06-11] MEDS: DOXYCYCLINE 100 MG CAP PO SCH (08:55)
[2018-06-11] MEDS: levoFLOXacin 250 MG TAB PO SCH (08:55)
[2018-06-11] MEDS: LISINOPRIL 10 MG TAB PO SCH (08:56)
[2018-06-11] MEDS: ENSURE ENLIVE 237 ML CAN PO SCH (09:00)
[2018-06-11] MEDS: ENOXAPARIN 30 MG/0.3 ML SQ SCH (10:52)
[2018-06-11] MEDS: clonazePAM 0.5 MG TAB PO PRN (10:53)
[2018-06-11 13:29] VITALS: TEMP 98.5
[2018-06-11] MEDS: NA CHLORIDE 0.9% 1,000 ML IV SCH (15:40)
[2018-06-11 16:49] VITALS: O2SAT 95
[2018-06-11 16:59] VITALS: BP 182/84
--- NOTE | 2018-06-12 14:21 | DS ---
Date of Discharge: 06/11/2018 Consultants: Dr. Dodge with Pulmonology, Dr. Dietz with Nephrology, Dr. Stein with Nephrology. Admitting Diagnoses: 1. Volume depletion. 2. Dementia. 3. Failure to thrive. 4. Elevated troponin level. 5. Diarrhea. 6. Urinary tract infection. 7. Acute kidney injury. Discharge Diagnoses: 1. Sepsis secondary to pneumonia, Clostridium difficile, and methicillin- resistant Staphylococcus aureus urinary tract infection. 2. Pneumonia. 3. Urinary tract infection, acute cystitis without hematuria, secondary to methicillin-resistant Staphylococcus aureus. 4. Clostridium difficile colitis. 5. Acute kidney injury, resolved. 6. Severe protein-calorie malnutrition. 7. Essential hypertension. Hospital Course: The patient is a 77-year-old female, who has a past medical history of hypertension, dementia, chronic anemia, who was in rehab for months after a wrist fracture, comes in with weakness and acute kidney injury. The patient's blood pressure was low at 90s over 40s, had leukocytosis 18,000. Creatinine was elevated at 2.8 and so was the troponin. The patient was found to be septic. The patient's cultures were obtained. She was placed on broad- spectrum IV antibiotics. She was found to have UTI secondary to MRSA. Her antibiotics were adjusted. She also had some diarrhea and was found to have C. diff colitis. The patient was on Flagyl dose, switched over to oral vancomycin. Repeat urine cultures showed 4+ yeast. No further MRSA. She was given Diflucan. Her blood cultures remained negative. The patient did have some elevation in her creatinine. Upon arrival due to acute dehydration, she was resuscitated with IV fluids and her creatinine level normalized. She had some electrolyte abnormalities, which were corrected including hypokalemia and hypophosphatemia. The patient's sepsis improved. Her troponin level was likely elevated secondary to sepsis. She did not complain of any chest pain. The patient had some hypoxia, which also improved. She was seen by Dr. Dodge for pneumonia. Her repeat imaging study showed improvement. She did have consolidation. She was on supplemental oxygen; however, was able to be weaned off. The patient was then placed on steroids, had some improvement. She was able to be weaned off oxygen. The patient is now afebrile and doing well with PT. Unfortunately, the patient did not have any significant benefits remaining. The daughter had been contacted multiple times, has not submitted proper paperwork to have [facility] to accept the patient with Medicaid pending and the patient does have home health, which will be resumed upon discharge. The patient was then cleared for discharge from consultants' standpoint and was discharged home with home health in a fair condition. Activity: As tolerated with fall precautions. Ambulate with assist. Diet: Heart healthy. Medications: As per medication reconciliation list. Total time spent discharging the patient was 37 minutes. Followup: Follow up with primary care physician in 2 to 3 days. Follow up with tile sorter, Dr. Dodge in 2 weeks. Follow up with court of appeals judge, Dr. Dietz in 2 weeks. Return to ER for worsening condition. Physical Examination: General: Awake, alert, oriented x3, not in any acute distress. Elderly female , frail, BMI 15, appears older than stated age. CV: S1, S2. No murmurs. Respiratory: Moving air well bilaterally. No wheezing. Gastrointestinal: Abdomen is soft, nontender, nondistended. Positive bowel sounds. Extremities: No clubbing, cyanosis, edema. Neurologic: Nonfocal. SA/MODL Voice ID: [id number] Report ID: [id number] MICHELLE
== END 2018-06-11 17:14 | disposition home health service (06) | DRG 871 ==
LOC: ER 16:05 → ERHOLD 19:17 → 4TH 22:28
PROVIDERS: ADMIT Family Medicine; ATTEND Family Medicine
DX: A41.9 Sepsis, unspecified organism (principal); E43 Unspecified severe protein-calorie malnutrition; J69.0 Pneumonitis due to inhalation of food and vomit; A04.72 Enterocolitis due to Clostridium difficile, not specified as recurrent; N30.00 Acute cystitis without hematuria; N17.9 Acute kidney failure, unspecified; Z68.1 Body mass index [BMI] 19.9 or less, adult; E87.2 Acidosis; B95.62 Methicillin resistant Staphylococcus aureus infection as the cause of diseases classified elsewhere; I10 Essential (primary) hypertension; F03.90 Unspecified dementia, unspecified severity, without behavioral disturbance, psychotic disturbance, mood disturbance, and anxiety; R74.8 Abnormal levels of other serum enzymes; R62.7 Adult failure to thrive; E86.0 Dehydration; E87.6 Hypokalemia; E83.39 Other disorders of phosphorus metabolism; R09.02 Hypoxemia; D63.8 Anemia in other chronic diseases classified elsewhere; E83.51 Hypocalcemia; E83.42 Hypomagnesemia; F41.9 Anxiety disorder, unspecified
CPT/HCPCS: 36415; 70450; 71045; 71046; 71250; 74150; 76770; 80048; 80053; 80076; 81001; 81003; 82043; 82550; 82553; 82570; 82607; 82728; 82805; 83540; 83605; 83735; 83880; 84100; 84132; 84145; 84439; 84443; 84466; 84484; 84550; 85014; 85018; 85025; 85610; 85730; 87040; 87070; 87077; 87086; 87088; 87186; 87205; 87493; 93005; 93306; 94667; 94668; 96372; 97163; 99285; J0360; J0696; J1650; J2405; J2543; J2916; J3475; J7030; J7512

== ENCOUNTER 2018-06-14 11:46 | Emergency (ER) | payer OTHER ==
--- OUTSIDE RECORDS SUMMARY | 2018-06-14 11:48 | XMS REPORT ---
[...] End Date Status Dosage System Date Lisinopril [facility] [id number] 40 MG Oral Active TK 1 T PO D Clonazepam ND [id number] 1 MG Oral Active (Schedule IV Drug) TK 1 T PO TID PRN P Acetaminophen- [facility] [id number] 300-30 MG Oral Active (Schedule Codeine #3 III Drug) TK 1 T PO Q 6 H PRN P Results No Known Results Summary Purpose eClinicalWorks Submission
[2018-06-14 12:17] LABS: Absolute Monocytes 0.3 K/uL (0.1-1.3); Absolute Neutrophil 6.1 K/uL (1.8-8.0); Basophils % 0.1 % (0-1.3); Eosinophils % 0.3 % (0-4.4); Hematocrit 32.6 % (36.0-45.0); Lymphocytes % 13.3 % (15.3-44.8); MCH 32.3 pg (27.0-35.0); MCV 98.3 fL (80-100); MPV 8.3 fL (7.6-11.3); Monocytes % 3.5 % (3.3-12.3); RBC Red Blood Cell Count 3.31 M/uL (3.86-4.86)
[2018-06-14 12:34] LABS: CKMB Creatine Kinase MB 2.2 ng/mL (0.3-3.6); Magnesium 1.7 mg/dL (1.8-2.4); Potassium 3.4 mmol/L (3.5-5.1)
--- NOTE | 2018-06-14 12:41 | RAD REPORT ---
EXAM DESCRIPTION: US - EXTREM VENOUS W COMPRESS JESSICA - 06/14/2018 12:33 pm CLINICAL HISTORY: SWELLING Bilateral leg edema and swelling. COMPARISON: No comparisons TECHNIQUE: Real-time sonographic interrogation of the left and right lower extremity deep venous sys tems was performed. FINDINGS: Normal compressibility, flow augmentation, phasic flow and spontaneous flow is identified in both the left and right lower extremity deep venous systems. IMPRESSION: No sonographic evidence of left or right lower extremity deep venous thrombosis.
--- NOTE | 2018-06-14 13:02 | RAD REPORT ---
EXAM DESCRIPTION: Pearl Single View06/14/2018 12:50 pm CLINICAL HISTORY: DYSPNEA COMPARISON: June 06, 2018 chest x-ray FINDINGS: Left lung opacities have diminished. No other change is noted IMPRESSION: Partial resolution in a left lung pneumonia
[2018-06-14] MEDS ORDERED: FUROSEMIDE 40 MG/4 ML VIAL ONE (13:23)
--- NOTE | 2018-06-14 14:22 | ER ---
Nurse's Notes [facility] Name: Valery Nair Age: 77 yrs Sex: Female : 1940 Arrival Date: 06/14/2018 Time: 11:49 Bed 8 Private MD: Diagnosis: Weakness;Unspecified combined systolic (congestive) and diastolic (congestive) heart failure Presentation: 06/14 11:49 Presenting complaint: EMS states: Shortness of breath and bilateral lower leg swelling hb x 2 days. Pt was recently discharged from hospital for CHF exacerbation. Transition of care: patient was not received from another setting of care. Onset of symptoms was June 13, 2018. Risk Assessment: Do you want to hurt yourself or someone else? Patient reports no desire to harm self or others. Care prior to arrival: None. 11:49 Method Of Arrival: EMS: [facility] 11:49 Acuity: MARIBETH 3 hb 11:49 Initial Sepsis Screen: Does the patient meet any 2 criteria? RR > 20 per min. HR > 90 cc3 bpm. Does the patient have a suspected source of infection? No. Patient's initial sepsis screen is negative. Triage Assessment: 11:50 General: Appears in no apparent distress. comfortable, Behavior is calm, cooperative, cc3 appropriate for age. Pain: Complains of pain in generalized body pain but mostly on bilateral lower legs. Quality of pain is described as aching. EENT: No signs and/or symptoms were reported regarding the EENT system. Neuro: Level of Consciousness is awake, alert, obeys commands, Oriented to person, place, time, situation, Appropriate for age. Cardiovascular: Denies chest pain, Patient's skin is warm and dry. Respiratory: Reports shortness of breath since 2 days Onset: The symptoms/episode began/occurred since 2 days, the patient has mild shortness of breath. GI: Abdomen is round. : No signs and/or symptoms were reported regarding the genitourinary system. Derm: Bruising that is purple on the right forearm. Musculoskeletal: Swelling present in bilateral lower legs and feet Reports pain in generalized body pain most especially on bilateral lower legs. Historical: - Allergies: 11:54 No Known Allergies; hb - Home Meds: 11:54 clonazepam 0.5 mg Oral tab [Active]; amlodipine 5 mg oral tab once daily [Active]; hb metoprolol tartrate 25 mg Oral tab 1 tab once daily [Active]; lisinopril 5 mg Oral tab 1 tab once daily [Active]; clonidine HCl 0.1 mg Oral tab 1 tab once daily [Active]; - PMHx: 11:54 Anemia; CVA; Hypertension; Myocardial infarction; hb - PSHx: 11:54 Hysterectomy; Joint replacement; hb - Immunization history:: Adult Immunizations up to date. - Social history:: Smoking status: Patient/guardian denies using tobacco. - Family history:: not pertinent. - Ebola Screening: : Patient denies travel to an Ebola-affected area in the 21 days before illness onset No symptoms or risks identified at this time. - Hospitalizations: : The patient was recently seen at [facility]. Screenin:54 Abuse screen: Denies threats or abuse. Denies injuries from another. Nutritional hb screening: No deficits noted. Tuberculosis screening: No symptoms or risk factors identified. Fall Risk Total Vazquez Fall Scale indicates Low Risk Score (25-44 pts). Fall prevention measures have been instituted. Side Rails Up X 2 Frequent Obs/Assesments occuring As available Patient and Family Educated on Fall Prevention Program and strategies. Assessment: 11:50 General: see triage assessment. cc3 11:55 Respiratory: Airway is patent Respiratory effort is even, unlabored. cc3 11:55 Cardiovascular: Denies chest pain. cc3 11:55 Cardiovascular: Rhythm is regular. cc3 11:55 Respiratory: Breath sounds with crackles bilaterally. cc3 12:30 Reassessment: Patient appears in no apparent distress at this time. Patient and/or hb family updated on plan of care and expected duration. Pain level reassessed. Patient is alert, oriented x 3, equal unlabored respirations, skin warm/dry/pink. 13:30 Reassessment: Patient appears in no apparent distress at this time. Patient and/or hb family updated on plan of care and expected duration. Pain level reassessed. Patient is alert, oriented x 3, equal unlabored respirations, skin warm/dry/pink. 14:00 Reassessment: Patient appears in no apparent distress at this time. Patient and/or cc3 family updated on plan of care and expected duration. Pain level reassessed. Patient is alert, oriented x 3, equal unlabored respirations, skin warm/dry/pink. Perineal care done as patient's diaper was soaked when she passed urine and semi-formed soft brown stool. Patient states feeling better. 15:15 Reassessment: Patient appears in no apparent distress at this time. Patient and/or cc3 family updated on plan of care and expected duration. Pain level reassessed. Patient is alert, oriented x 3, equal unlabored respirations, skin warm/dry/pink. Perineal care done when diaper was soaked as patient passed urine and semi-formed soft brown stool. 16:25 Reassessment: Dr. Villasenor came and said patient is for discharge home; Dr. Villasenor cc3 explained to the patient and patient's family. Vital Signs: 11:51 BP 194 / 87; Pulse 91; Resp 16; Temp 98.3; Pulse Ox 96% ; Pain 3/10; hb 12:30 BP 200 / 72; Pulse 86; Resp 16; Pulse Ox 97% on R/A; cc3 13:26 BP 210 / 84; Pulse 93; Resp 19; Pulse Ox 97% on R/A; cc3 14:30 BP 204 / 90; Pulse 97; Resp 22; Pulse Ox 96% on R/A; cc3 15:30 BP 170 / 106; Pulse 97; Resp 18 S; Pulse Ox 98% on R/A; cc3 16:30 BP 167 / 101; Pulse 95; Resp 21; Pulse Ox 97% on R/A; Pain 0/10; em1 ED Course: 11:49 Patient arrived in ED. hb 11:50 Monico Chavez MD is Attending Physician. rn 11:51 Triage completed. hb 11:54 Arm band placed on right wrist. hb 11:55 Patient has correct armband on for positive identification. Placed in gown. Bed in low cc3 position. Call light in reach. Side rails up X2. 12:00 Initial lab(s) drawn, by me, sent to lab. Inserted saline lock: 22 gauge in right hand, cc3 using aseptic technique. Blood collected. 12:10 Patient taken to ultrasound. hanna 12:13 EKG done, by animal husbandry technician. reviewed by Monico Chavez MD. at1 12:33 Extrem Venous W Compression Kwabena US In Process Unspecified. EDMS 12:36 Ultrasound completed. Patient moved back from ultrasound. hanna 12:49 X-ray completed. Portable x-ray completed in exam room. Patient tolerated procedure ka well. 12:50 XRAY CXR (1 view) In Process Unspecified. EDMS 12:57 Elvira Velez is Primary Nurse. cc3 14:21 Isa Villasenor MD is Hospitalizing Provider. rn 16:45 No provider procedures requiring assistance completed. IV discontinued, intact, cc3 bleeding controlled, No redness/swelling at site. Pressure dressing applied. Administered Medications: 13:19 Drug: Lasix 40 mg Route: IVP; Site: right hand; cc3 14:22 Follow up: Response: No adverse reaction hb Outcome: 14:21 Decision to Hospitalize by Provider. rn 16:37 Discharge ordered by MD. rn 16:45 Discharged to home via wheelchair, with family. cc3 16:45 Condition: stable 16:45 Discharge instructions given to patient, family, Instructed on discharge instructions, follow up and referral plans. Demonstrated understanding of instructions, follow-up care. 17:01 Patient left the ED. cc3 Signatures: Dispatcher [employer] EDMS Monico Chavez MD MD rn Kaushik Razo em1 Rajani Pierre, packing supervisor EKG Tat1 Nerissa Gomez Jacques jd Baxter, Heather, RN RN Elvira Velez cc3 Corrections: (The following items were deleted from the chart) 12:21 11:50 Respiratory: Reports shortness of breath since today morning Onset: The cc3 symptoms/episode began/occurred this morning, the patient has mild shortness of breath cc3 12:21 11:50 Musculoskeletal: Reports pain in generalized body pain most especially on cc3 bilateral lower legs cc3 16:32 14:00 Reassessment: Perineal care done as patient's diaper was soaked when she passed cc3 urine and semi-formed soft brown stool. cc3 17:00 16:57 Respiratory: cc3 cc3
--- NOTE | 2018-06-14 14:22 | EDPHYS ---
Physician Documentation [facility] Name: Valery Nair Age: 77 yrs Sex: Female : 1940 Arrival Date: 06/14/2018 Time: 11:49 Bed 8 Private MD: ED Physician Monico Chavez HPI: 06/14 11:50 This 77 yrs old Female presents to ER via Unassigned with complaints of Leg rn Swelling, Shortness Of Breath. 12:24 The patient has shortness of breath with light activity. Onset: The symptoms/episode rn began/occurred at an unknown time. Duration: The symptoms are intermittent. The patient's shortness of breath is aggravated by light activity, supine position. Severity of symptoms: At their worst the symptoms were mild in the emergency department the symptoms have improved. The patient has experienced similar episodes in the past. The patient has been recently been admitted at [facility]. Reports just discharged from this hospital in last day or so, admitted for pneumonia/CHF/diarrhea, reports didn't feel much better at discharge, daughter is taking care of her at home. No chest pain. + intermittent sob. Her main concern is worsening of the swelling of her ankles. . Historical: - Allergies: 11:54 No Known Allergies; hb - Home Meds: 11:54 clonazepam 0.5 mg Oral tab [Active]; amlodipine 5 mg oral tab once daily [Active]; hb metoprolol tartrate 25 mg Oral tab 1 tab once daily [Active]; lisinopril 5 mg Oral tab 1 tab once daily [Active]; clonidine HCl 0.1 mg Oral tab 1 tab once daily [Active]; - PMHx: 11:54 Anemia; CVA; Hypertension; Myocardial infarction; hb - PSHx: 11:54 Hysterectomy; Joint replacement; hb - Immunization history:: Adult Immunizations up to date. - Social history:: Smoking status: Patient/guardian denies using tobacco. - Family history:: not pertinent. - Ebola Screening: : Patient denies travel to an Ebola-affected area in the 21 days before illness onset No symptoms or risks identified at this time. - Hospitalizations: : The patient was recently seen at [facility]. ROS: 12:24 Constitutional: Negative for fever, chills, and weight loss, Eyes: Negative for injury, rn pain, redness, and discharge, Cardiovascular: Negative for chest pain Respiratory: Negative for wheezing, and pleuritic chest pain, Abdomen/GI: Negative for abdominal pain, nausea, vomiting, diarrhea, and constipation, MS/Extremity: Negative for injury and deformity, Skin: Negative for injury, rash, and discoloration, Neuro: Negative for headache, numbness, tingling, and seizure. Exam: 12:24 Constitutional: Thin female, frail, no acute distress Head/Face: Normocephalic, rn atraumatic. Eyes: Pupils equal round and reactive to light, extra-ocular motions intact. Neck: Trachea midline, no thyromegaly or masses palpated, and no cervical lymphadenopathy. Supple, full range of motion without nuchal rigidity, or vertebral point tenderness. No Meningismus. Cardiovascular: Regular rate and rhythm with a normal S1 and S2. No gallops, murmurs, or rubs. Normal PMI, no JVD. No pulse deficits. Respiratory: speaking full sentences, mild crackles bilaterally Abdomen/GI: soft, non-tender MS/ Extremity: Pulses equal, no cyanosis. Neurovascular intact. Full, normal range of motion. Equal circumference. 1+ pitting pedal edema bilaterally Neuro: Awake and alert, GCS 15, oriented to person, place, and situation. Cranial nerves II-XII grossly intact. Motor strength 4/5 in all extremities. Sensory grossly intact. Vital Signs: 11:51 BP 194 / 87; Pulse 91; Resp 16; Temp 98.3; Pulse Ox 96% ; Pain 3/10; hb 12:30 BP 200 / 72; Pulse 86; Resp 16; Pulse Ox 97% on R/A; cc3 13:26 BP 210 / 84; Pulse 93; Resp 19; Pulse Ox 97% on R/A; cc3 14:30 BP 204 / 90; Pulse 97; Resp 22; Pulse Ox 96% on R/A; cc3 15:30 BP 170 / 106; Pulse 97; Resp 18 S; Pulse Ox 98% on R/A; cc3 16:30 BP 167 / 101; Pulse 95; Resp 21; Pulse Ox 97% on R/A; Pain 0/10; em1 MDM: 11:50 Patient medically screened. rn 14:20 Differential diagnosis: Anemia Anxiety Reaction CHF exacerbation, Myocardial Infarction rn pneumonia, Pneumothorax pulmonary edema, reactive airway disease. Data reviewed: vital signs, nurses notes, lab test result(s), EKG, radiologic studies, plain films, and as a result, I will admit patient. Counseling: I had a detailed discussion with the patient and/or guardian regarding: the historical points, exam findings, and any diagnostic results supporting the discharge/admit diagnosis, lab results, radiology results, the need for further work-up and treatment in the hospital. Response to treatment: the patient's symptoms have mildly improved after treatment, and as a result, I will admit patient. Admission orders: after a detailed discussion of the patient's condition and case, the admit orders are written by me. 16:36 ED course: Pt admitted to Dr. patino, who evaluated patient in ER and determined could rn be discharged home, she helped organized home health and spoke with family, family agrees and will return if worsens. . 06/14 11:52 Order name: Blood Culture Adult (2) rn 06/14 11:52 Order name: BMP; Complete Time: 12:54 rn 06/14 11:52 Order name: CBC with Diff; Complete Time: 12:28 rn 06/14 11:52 Order name: Ckmb; Complete Time: 12:54 rn 06/14 11:52 Order name: CPK; Complete Time: 12:54 rn 06/14 11:52 Order name: Magnesium; Complete Time: 12:54 rn 06/14 11:52 Order name: XRAY CXR (1 view); Complete Time: 13:13 rn 06/14 11:52 Order name: NT PRO-BNP; Complete Time: 12:54 rn 06/14 11:52 Order name: Troponin (emerg Dept Use Only); Complete Time: 12:54 rn 06/14 11:52 Order name: EKG; Complete Time: 11:53 rn 06/14 11:52 Order name: Extrem Venous W Compression Kwabena US; Complete Time: 12:54 rn 06/14 14:54 Order name: Urine Dipstick--Ancillary (enter results) eb 06/14 15:02 Order name: Urine Dipstick-Ancillary EDMS 06/14 11:52 Order name: Cardiac monitoring; Complete Time: 12:11 rn 06/14 11:52 Order name: EKG - Nurse/Tech; Complete Time: 12:11 rn 06/14 11:52 Order name: IV Saline Lock; Complete Time: 12:11 rn 06/14 11:52 Order name: Labs collected and sent; Complete Time: 12:12 rn 06/14 11:52 Order name: O2 Per Protocol; Complete Time: 12:12 rn 06/14 11:52 Order name: O2 Sat Monitoring; Complete Time: 12:12 rn 06/14 11:52 Order name: Urine Dipstick-Ancillary (obtain specimen); Complete Time: 14:48 rn Administered Medications: 13:19 Drug: Lasix 40 mg Route: IVP; Site: right hand; cc3 14:22 Follow up: Response: No adverse reaction hb Disposition: 06/14/18 16:37 Discharged to Home. Impression: Weakness, Unspecified combined systolic (congestive) and diastolic (congestive) heart failure. - Condition is Stable. - Discharge Instructions: Heart Failure, Edema, Weakness. - Medication Reconciliation Form, Thank You Letter, Antibiotic Education, Prescription Opioid Use form. - Follow up: Private Physician; When: As needed; Reason: Recheck today's complaints, Re-evaluation by your physician. - Problem is an ongoing problem. - Symptoms have improved. Signatures: Dispatcher [employer] EDMS Monico Chavez MD MD rn Baxter, Heather, RN RN Elvira Velez cc3 Corrections: (The following items were deleted from the chart) 12:27 12:24 Reports just discharged from this hospital in last day or so, admitted for rn pneumonia/CHF/diarrhea, reports didn't feel much better at discharge, daughter is taking care of her at home, has been vomiting with diarrhea, stood up from toilet today and had syncopal episode, no chest pain. + intermittent sob. Her main concern is worsening of the swelling of her ankles. . rn 12:27 12:24 Constitutional: Negative for fever, chills, and weight loss, Eyes: Negative for rn injury, pain, redness, and discharge, Cardiovascular: Negative for chest pain Respiratory: Negative for wheezing, and pleuritic chest pain, Abdomen/GI: Negative for abdominal pain, nausea, vomiting, diarrhea, and constipation, MS/Extremity: Negative for injury and deformity, Skin: Negative for injury, rash, and discoloration, Neuro: Negative for headache, numbness, tingling, and seizure, rn 16:37 14:21 Hospitalization Ordered by Isa Patino MD for Inpatient Admission. Preliminary rn diagnosis is Dyspnea, unspecified; Unspecified combined systolic (congestive) and diastolic (congestive) heart failure; Weakness; Edema, unspecified. Bed requested for Telemetry/MedSurg (Inpatient). Status is Inpatient Admission. Condition is Stable. Problem is an ongoing problem. Symptoms have improved. UTI on Admission? No. rn 17:01 16:37 06/14/2018 16:37 Discharged to Home. Impression: Weakness; Unspecified combined cc3 systolic (congestive) and diastolic (congestive) heart failure. Condition is Stable. Forms are Medication Reconciliation Form, Thank You Letter, Antibiotic Education, Prescription Opioid Use. Follow up: Private Physician; When: As needed; Reason: Recheck today's complaints, Re-evaluation by your physician. Problem is an ongoing problem. Symptoms have improved. rn
[2018-06-14 15:01] LABS: Urine Blood 1+ (NEG); Urine Glucose NEGATIVE (NEG); Urine Protein NEGATIVE (NEG); Urine Specific Gravity 1.015 (1.005-1.030)
--- NOTE | 2018-06-14 16:28 | EKG ---
Test Date: 2018-06-14 Test Time: 12:04:19 Major Account Manager: JEREMI MEASUREMENT RESULTS: Intervals: Rate: 87 AL: 118 QRSD: 74 QT: 366 QTc: 440 Braxton: P: 71 AL: 118 QRS: 9 T: 37 INTERPRETIVE STATEMENTS: Normal sinus rhythm Normal ECG Compared to ECG 06/09/2018 08:24:14 No significant changes Electronically Signed On 06-14-18 16:26:02 CDT by Lionel Gomez
[2018-06-14 17:12] VITALS: TEMP 98.3
[2018-06-14 17:18] VITALS: BP 167/101; O2SAT 97
== END 2018-06-14 17:01 | disposition home or self-care (01) ==
LOC: ER 11:46 → UNDOADMIN 14:23 → ERHOLD 14:23 → ER 17:01
DX: I50.40 Unspecified combined systolic (congestive) and diastolic (congestive) heart failure (principal); I10 Essential (primary) hypertension; I25.2 Old myocardial infarction; Z86.73 Personal history of transient ischemic attack (TIA), and cerebral infarction without residual deficits
CPT/HCPCS: 36415; 71045; 80048; 81003; 82550; 82553; 83735; 83880; 84484; 85025; 87040; 93005; 93970; 96374; 99284

== ENCOUNTER 2018-12-15 07:00 | Emergency (ER) | payer OTHER ==
--- OUTSIDE RECORDS SUMMARY | 2018-12-15 07:03 | XMS REPORT ---
[...] End Date Status Dosage System Date Lisinopril [facility] [id number] 40 MG Oral Active TK 1 T PO D Clonazepam [place] [id number] 1 MG Oral Active (Schedule IV Drug) TK 1 T PO TID PRN P Acetaminophen- [facility] [id number] 300-30 MG Oral Active (Schedule Codeine #3 III Drug) TK 1 T PO Q 6 H PRN P Results No Known Results Summary Purpose eClinicalWorks Submission
--- OUTSIDE RECORDS SUMMARY | 2018-12-15 07:03 | XMS REPORT ---
:1940 [facility] Address [address] [place] [address] Care Team Providers Name Role Phone Unavailable Unavailable Unavailable Payers Payer Name Policy Type Policy Number Effective Date Expiration Date Problems This patient has no known problems. Allergies, Adverse Reactions, Alerts Allergy Allergy Status Severity Reaction(s) Onset Inactive Treating Comments Name Type Date Date Clinician No Known DA Active U 2018-11 Allergies 12 00:00:0 0 Medications This patient has no known medications. Results Test Description Test Time Test Comments Text Results Atomic Results Result Comments BASIC METABOLIC PANEL 2018-11-30 09:14:00 Test Item Value Reference Range Comments SODIUM (test code=NA) 142 MMOL/L 137-145 POTASSIUM (test code=K) 3.9 MMOL/L 3.5-5.1 CHLORIDE (test code=CL) 108 MMOL/L 98-107 CARBON DIOXIDE (test code=CO2) 26 MMOL/L 22-30 ANION GAP (test code=GAP) 12 MMOL/L 14-24 GLUCOSE (test code=GLU) 137 MG/DL 74-106 BLOOD UREA NITROGEN (test 36 MG/DL 7-17 code=BUN) GLOMERULAR FILTRATION RATE (test > 60 Reporting units: ml/min/1.73 m2 code=GFR) (Modified MDRD Formula)Reference Range: > or=60 ml/min/1.73 m2 CREATININE (test code=CREAT) 0.70 MG/DL 0.52-1.04 CALCIUM (test code=CA) 9.3 MG/DL 8.4-10.2 PATIENT IS A HARD STICK. UNABLE TO GET BLOOD SAMPLE.LINE NOT WORKING. NEED PHLEB PER NURSEON 11/30/18 AT 0650 BY ARABELLA.RB UNABLE TO DRAW BLOOD, REASON: CBNNOTIFIED PATIENT CARE STAFF: JAH 11/30/18 AT 0608 BY Vianney Ramirez W/AUTO [id number] 07:21:00 Test Item Value Reference Range Comments WHITE BLOOD CELL (test code=WBC) 19.2 K/MM3 3.8-9.8 RED BLOOD CELL (test code=RBC) 3.58 M/MM3 3.58-4.97 HEMOGLOBIN (test code=HGB) 10.4 G/DL 11.2-14.9 HEMATOCRIT (test code=HCT) 32.4 % 33.2-43.5 MEAN CELL VOLUME (test code=MCV) 91 fL 80.7-99.1 MEAN CELL HGB (test code=MCH) 29.1 pg 27.0-34.1 MEAN CELL HGB CONCETRATION (test code=MCHC) 32.1 % 32.2-35.7 RED CELL DISTRIBUTION WIDTH (test code=RDW) 15.9 % 12.1-15.2 PLATELET COUNT (test code=PLT) 298 K/MM3 129-368 MEAN PLATELET VOLUME (test code=MPV) 9.1 fl 7.4-10.4 NEUTROPHIL % (test code=NT%) 81.8 % 43-75 IMMATURE GRANULOCYTE % (test code=IG%) 1.6 % 0.0-2.0 LYMPHOCYTE % (test code=LY%) 10.0 % 14-44 MONOCYTE % (test code=MO%) 6.4 % 4-13 EOSINOPHIL % (test code=EO%) 0.0 % 0-6 BASOPHIL % (test code=BA%) 0.2 % 0-2 NUCLEATED RBC % (test code=NRBC%) 0.0 % 0-1.0 NEUTROPHIL # (test code=NT#) 15.7 K/mm3 2.0-7.6 IMMATURE GRANULOCYTE # (test code=IG#) 0.30 x10 3/uL 0-0.03 LYMPHOCYTE # (test code=LY#) 1.9 K/mm3 1.0-3.8 MONOCYTE # (test code=MO#) 1.23 K/mm3 0.1-0.8 EOSINOPHIL # (test code=EO#) 0.0 K/mm3 0.0-0.2 BASOPHIL # (test code=BA#) 0.03 K/mm3 0.0-0.2 NUCLEATED RBC # (test code=NRBC#) 0.0 K/mm3 0.0-0.1 PATIENT IS A HARD STICK. UNABLE TO GET BLOOD SAMPLE.LINE NOT WORKING. NEED PHLEB PER NURSEON 11/30/18 AT 0650 BY ARABELLA.RB UNABLE TO DRAW BLOOD, REASON: CBNNOTIFIED PATIENT CARE STAFF: JAH 11/30/18 AT 0609 BY Vianney Ramirez W/AUTO [id number] 20:37:00 Test Item Value Reference Range Comments WHITE BLOOD CELL (test code=WBC) 17.7 K/MM3 3.8-9.8 RED BLOOD CELL (test code=RBC) 3.49 M/MM3 3.58-4.97 HEMOGLOBIN (test code=HGB) 10.1 G/DL 11.2-14.9 HEMATOCRIT (test code=HCT) 33.0 % 33.2-43.5 MEAN CELL VOLUME (test code=MCV) 95 fL 80.7-99.1 MEAN CELL HGB (test code=MCH) 28.9 pg 27.0-34.1 MEAN CELL HGB CONCETRATION (test code=MCHC) 30.6 % 32.2-35.7 RED CELL DISTRIBUTION WIDTH (test code=RDW) 15.9 % 12.1-15.2 PLATELET COUNT (test code=PLT) 291 K/MM3 129-368 MEAN PLATELET VOLUME (test code=MPV) 9.3 fl 7.4-10.4 NEUTROPHIL % (test code=NT%) 82.1 % 43-75 IMMATURE GRANULOCYTE % (test code=IG%) 2.4 % 0.0-2.0 LYMPHOCYTE % (test code=LY%) 8.5 % 14-44 MONOCYTE % (test code=MO%) 6.8 % 4-13 EOSINOPHIL % (test code=EO%) 0.0 % 0-6 BASOPHIL % (test code=BA%) 0.2 % 0-2 NUCLEATED RBC % (test code=NRBC%) 0.0 % 0-1.0 NEUTROPHIL # (test code=NT#) 14.5 K/mm3 2.0-7.6 IMMATURE GRANULOCYTE # (test code=IG#) 0.43 x10 3/uL 0-0.03 LYMPHOCYTE # (test code=LY#) 1.5 K/mm3 1.0-3.8 MONOCYTE # (test code=MO#) 1.20 K/mm3 0.1-0.8 EOSINOPHIL # (test code=EO#) 0.0 K/mm3 0.0-0.2 BASOPHIL # (test code=BA#) 0.03 K/mm3 0.0-0.2 NUCLEATED RBC # (test code=NRBC#) 0.0 K/mm3 0.0-0.1 BASIC METABOLIC [id number] 10:44:00 Test Item Value Reference Range Comments SODIUM (test code=NA) 142 MMOL/L 137-145 POTASSIUM (test code=K) 4.4 MMOL/L 3.5-5.1 CHLORIDE (test code=CL) 111 MMOL/L 98-107 CARBON DIOXIDE (test code=CO2) 19 MMOL/L 22-30 ANION GAP (test code=GAP) 16 MMOL/L 14-24 GLUCOSE (test code=GLU) 196 MG/DL 74-106 BLOOD UREA NITROGEN (test 36 MG/DL 7-17 CONSTANT WITH PREVIOUS code=BUN) RESULTS GLOMERULAR FILTRATION RATE > 60 Reporting units: ml/min/1.73 (test code=GFR) m2 (Modified MDRD Formula)Reference Range: > or=60 ml/min/1.73 m2 CREATININE (test code=CREAT) 0.70 MG/DL 0.52-1.04 CALCIUM (test code=CA) 9.1 MG/DL 8.4-10.2 UNABLE TO DRAW BLOOD, REASON: CBNNOTIFIED PATIENT CARE STAFF: JAH 11/29/18 AT 0735 BY Luisa Randall W/AUTO [id number] 10:16:00 Test Item Value Reference Range Comments WHITE BLOOD CELL (test code=WBC) 18.9 K/MM3 3.8-9.8 RED BLOOD CELL (test code=RBC) 3.41 M/MM3 3.58-4.97 HEMOGLOBIN (test code=HGB) 9.9 G/DL 11.2-14.9 HEMATOCRIT (test code=HCT) 33.2 % 33.2-43.5 MEAN CELL VOLUME (test code=MCV) 97 fL 80.7-99.1 MEAN CELL HGB (test code=MCH) 29.0 pg 27.0-34.1 MEAN CELL HGB CONCETRATION (test code=MCHC) 29.8 % 32.2-35.7 RED CELL DISTRIBUTION WIDTH (test code=RDW) 15.6 % 12.1-15.2 PLATELET COUNT (test code=PLT) 242 K/MM3 129-368 MEAN PLATELET VOLUME (test code=MPV) 9.4 fl 7.4-10.4 NEUTROPHIL % (test code=NT%) 77.3 % 43-75 IMMATURE GRANULOCYTE % (test code=IG%) 2.3 % 0.0-2.0 LYMPHOCYTE % (test code=LY%) 12.3 % 14-44 MONOCYTE % (test code=MO%) 7.9 % 4-13 EOSINOPHIL % (test code=EO%) 0.0 % 0-6 BASOPHIL % (test code=BA%) 0.2 % 0-2 NUCLEATED RBC % (test code=NRBC%) 0.0 % 0-1.0 NEUTROPHIL # (test code=NT#) 14.6 K/mm3 2.0-7.6 IMMATURE GRANULOCYTE # (test code=IG#) 0.43 x10 3/uL 0-0.03 LYMPHOCYTE # (test code=LY#) 2.3 K/mm3 1.0-3.8 MONOCYTE # (test code=MO#) 1.50 K/mm3 0.1-0.8 EOSINOPHIL # (test code=EO#) 0.0 K/mm3 0.0-0.2 BASOPHIL # (test code=BA#) 0.04 K/mm3 0.0-0.2 NUCLEATED RBC # (test code=NRBC#) 0.0 K/mm3 0.0-0.1 UNABLE TO DRAW BLOOD, REASON: CBNNOTIFIED PATIENT CARE STAFF: JAH 11/29/18 AT 0735 BY Susana Randall METABOLIC [id number] 09:59:00 Test Item Value Reference Range Comments SODIUM (test code=NA) 142 MMOL/L 137-145 POTASSIUM (test code=K) 3.9 MMOL/L 3.5-5.1 CHLORIDE (test code=CL) 108 MMOL/L 98-107 CARBON DIOXIDE (test code=CO2) 24 MMOL/L 22-30 ANION GAP (test code=GAP) 14 MMOL/L 14-24 GLUCOSE (test code=GLU) 275 MG/DL 74-106 BLOOD UREA NITROGEN (test 31 MG/DL 7-17 code=BUN) GLOMERULAR FILTRATION RATE > 60 Reporting units: ml/min/1.73 (test code=GFR) m2 (Modified MDRD Formula)Reference Range: > or=60 ml/min/1.73 m2 CREATININE (test code=CREAT) 0.70 MG/DL 0.52-1.04 CALCIUM (test code=CA) 9.3 MG/DL 8.4-10.2 UNABLE TO DRAW BLOOD, REASON: CBNNOTIFIED PATIENT CARE STAFF: MARIA A 11/28/18 AT 0633 BY Vianney Ramirez TO DRAW BLOOD, REASON: IN M.R.I COME BACK @ 9NOTIFIED PATIENT CARE STAFF: VALERIA 11/28/18 AT 0817 BY Vianney RamirezLACTIC [id number] 09:55:00 Test Item Value Reference Range Comments LACTIC ACID (test code=LACT) 3.1 MMOL/L 0.7-2.1 UNABLE TO DRAW BLOOD, REASON: CBNNOTIFIED PATIENT CARE STAFF: MARIA A 11/28/18 AT 0633 BY Vianney Ramirez TO DRAW BLOOD, REASON: IN M.R.I COME BACK @ 9NOTIFIED PATIENT CARE STAFF: TRISHA 11/28/18 AT 0814 BY Vianney Ramirez W/AUTO [id number] 09:36:00 Test Item Value Reference Range Comments WHITE BLOOD CELL (test code=WBC) 20.0 K/MM3 3.8-9.8 RED BLOOD CELL (test code=RBC) 3.89 M/MM3 3.58-4.97 HEMOGLOBIN (test code=HGB) 11.3 G/DL 11.2-14.9 HEMATOCRIT (test code=HCT) 36.6 % 33.2-43.5 MEAN CELL VOLUME (test code=MCV) 94 fL 80.7-99.1 MEAN CELL HGB (test code=MCH) 29.0 pg 27.0-34.1 MEAN CELL HGB CONCETRATION (test code=MCHC) 30.9 % 32.2-35.7 RED CELL DISTRIBUTION WIDTH (test code=RDW) 15.1 % 12.1-15.2 PLATELET COUNT (test code=PLT) 248 K/MM3 129-368 MEAN PLATELET VOLUME (test code=MPV) 9.3 fl 7.4-10.4 NEUTROPHIL % (test code=NT%) 92.4 % 43-75 IMMATURE GRANULOCYTE % (test code=IG%) 1.5 % 0.0-2.0 LYMPHOCYTE % (test code=LY%) 5.0 % 14-44 MONOCYTE % (test code=MO%) 0.8 % 4-13 EOSINOPHIL % (test code=EO%) 0.1 % 0-6 BASOPHIL % (test code=BA%) 0.2 % 0-2 NUCLEATED RBC % (test code=NRBC%) 0.0 % 0-1.0 NEUTROPHIL # (test code=NT#) 18.5 K/mm3 2.0-7.6 IMMATURE GRANULOCYTE # (test code=IG#) 0.29 x10 3/uL 0-0.03 LYMPHOCYTE # (test code=LY#) 1.0 K/mm3 1.0-3.8 MONOCYTE # (test code=MO#) 0.16 K/mm3 0.1-0.8 EOSINOPHIL # (test code=EO#) 0.0 K/mm3 0.0-0.2 BASOPHIL # (test code=BA#) 0.04 K/mm3 0.0-0.2 NUCLEATED RBC # (test code=NRBC#) 0.0 K/mm3 0.0-0.1 UNABLE TO DRAW BLOOD, REASON: CBNNOTIFIED PATIENT CARE STAFF: MARIA A 11/28/18 AT 0634 BY Vianney RamirezUNABLE TO DRAW BLOOD, REASON: IN M.R.I COME BACK @ 9NOTIFIED PATIENT CARE STAFF: VALERIA 11/28/18 AT [address] CHEST W/O [id number] 08:04:00 Patient Name: KAM MANSFIELD Unit No: [id number] EXAMS: CPT CODE: [id number] CT CHEST W/O CONTRAST [address]109 CT chest History: cough, r/o pneumonia Comparison: None at this time Location: R16 CT scan of the chest was performed without intravenous contrast. One or more of the following radiation dose reduction techniques was used : automated exposure control, adjustment of mA and/or KV according to patient size, and/or utilization of iterative reconstruction technique. Quality of Exam: Acceptable. Thoracic aorta: Note is made that evaluation for possible aortic dissection is unable to be performed due to the lack of intravenous contrast. The thoracic aorta otherwise appears unremarkable. Other mediastinal structures: The other mediastinal structures are unremarkable. Pulmonary arteries: Assessment for possible pulmonary embolus is unable to be performed on a noncontrast CT scan of the chest. Lymph nodes: No lymphadenopathy is identified. Pleura: There are no pleural effusions. Lung parenchyma : There are emphysematous changes in the lungs. There is minimal dependent atelectasis in the lungs. There are scattered patchy opacities in the right lower lobe. Bones/soft tissues: No concerning bony lesionis identified. No mass lesions are identified. IMPRESSION: There are scattered patchy opacities in the right lower lobe. This could be due to pneumonia. There are emphysematous changes in the lungs. There is minimal dependent atelectasis in the lungs. at 0804 Reported and signed by: Slava Cruz [facility] NAME: KAM MANSFIELD [id number] PHYS: [place] [address] : [birth year]AGE: 78 SEX: F LOC: Z.624 B PHONE #: [phone] EXAM DATE: 11/28/2018 STATUS: ADM IN FAX #: [phone] RAD #: D/C DT PAGE 1 Signed Report (CONTINUED) Patient Name: KAM MANSFIELD Unit No: [id number] EXAMS: CPT CODE : [id number] CT CHEST W/O CONTRAST 96451 < Continued> CC: Rohini Iverson MD; RODGER BALES; Indra Crane MD Technologist: Edgardo Rosario, RT(R)(CT ) CTDI: DLP: Trnscrpt: 11/28/2018 (0804) t.SDR.[facility] NAME: KAM MANSFIELD [id number] PHYS: [place] [address] : 1940 AGE: 78 SEX: F LOC: Z.624 B PHONE #: [phone] EXAM DATE: 11/28/2018 STATUS: ADM IN FAX #: [phone] RAD #: D/C DT PAGE 2 Signed Report Patient Name: KAM MANSFIELD Unit No: [id number] EXAMS: CPT CODE: [id number] CT CHEST W/O CONTRAST 03207 < Continued> Orig Print D/T: S: 11/28/2018 (0807) [facility] Eric NAME: KAM MANSFIELD[address] PHYS: [place] [address] : 1940 AGE: 78 SEX: F LOC: Z.624 B PHONE #: [phone] EXAM DATE: 11/28/2018 STATUS: ADM IN FAX #: [phone] RAD # : D/C DT PAGE 3 Signed ReportGLUCOSE BEDSIDE [id number] 06:25:00 Test Item Value Reference Range Comments GLUCOSE BEDSIDE TESTING (test code=GLUBED) 148 MG/DL 60-99 LACTIC [id number] 02:48:00 Test Item Value Reference Range Comments LACTIC ACID (test code=LACT) 2.2 MMOL/L 0.7-2.1 URINALYSIS [id number] 19:28:00 Test Item Value Reference Range Comments UA COLOR (test code=COLU) YELLOW YELLOW UA APPEARANCE (test code=APPU) CLEAR CLEAR UA GLUCOSE DIPSTICK (test code=DGLUU) NORMAL MG/DL NORMAL UA BILIRUBIN DIPSTICK (test code=BILU) NEGATIVE MG/DL NEGATIVE UA KETONE DIPSTICK (test code=KETU) NEGATIVE MG/DL NEGATIVE UA SPECIFIC GRAVITY (test code=SGU) 1.015 1.003-1.030 UA BLOOD DIPSTICK (test code=PRICILA) NEGATIVE Thang/mm3 NEGATIVE UA PH DIPSTICK (test code=PAM) 6.0 5.0-9.0 UA PROTEIN DIPSTICK (test code=PROU) 15 MG/DL NEGATIVE UA UROBILINIOGEN DIPSTICK (test NORMAL MG/DL NORMAL code=URO) UA NITRITE DIPSTICK (test code=THELMA) NEGATIVE NEGATIVE UA LEUKOCYTE ESTERASE DIPSTICK (test NEGATIVE /mm3 NEGATIVE code=LEUU) UA CULTURE NEEDED? (test code=UACULT) NO, WBC<10 Criteria Culture Chk UA [id number] 19:28:00 Test Item Value Reference Range Comments UA RBC (test code=RBCU) NONE RBC/HPF 0-3 UA WBC (test code=XWBCU) 0-3 WBC/HPF 0-5 UA EPITHELIAL CELLS (test code=EPIU) RARE EPI/HPF FEW UA BACTERIA (test code=XBACU) RARE NONE UA YEAST (test code=YEASTU) FEW #/HPF NONE URINALYSIS [id number] 19:05:00 Test Item Value Reference Range Comments UA COLOR (test code=COLU) YELLOW YELLOW UA APPEARANCE (test code=APPU) CLEAR CLEAR UA GLUCOSE DIPSTICK (test code=DGLUU) NORMAL MG/DL NORMAL UA BILIRUBIN DIPSTICK (test code=BILU) NEGATIVE MG/DL NEGATIVE UA KETONE DIPSTICK (test code=KETU) NEGATIVE MG/DL NEGATIVE UA SPECIFIC GRAVITY (test code=SGU) 1.015 1.003-1.030 UA BLOOD DIPSTICK (test code=PRICILA) NEGATIVE Thang/mm3 NEGATIVE UA PH DIPSTICK (test code=PAM) 6.0 5.0-9.0 UA PROTEIN DIPSTICK (test code=PROU) 15 MG/DL NEGATIVE UA UROBILINIOGEN DIPSTICK (test code=URO) NORMAL MG/DL NORMAL UA NITRITE DIPSTICK (test code=THELMA) NEGATIVE NEGATIVE UA LEUKOCYTE ESTERASE DIPSTICK (test NEGATIVE /mm3 NEGATIVE code=LEUU) UA CULTURE NEEDED? (test code=UACULT) Criteria Culture k UA [id number] 19:05:00 Test Item Value Reference Range Comments UA RBC (test code=RBCU) RBC/HPF 0-3 UA WBC (test code=XWBCU) WBC/HPF 0-5 UA EPITHELIAL CELLS (test code=EPIU) EPI/HPF FEW UA BACTERIA (test code=XBACU) NONE URINALYSIS [id number] 19:05:00 Test Item Value Reference Range Comments UA COLOR (test code=COLU) YELLOW YELLOW UA APPEARANCE (test code=APPU) CLEAR CLEAR UA GLUCOSE DIPSTICK (test code=DGLUU) NORMAL MG/DL NORMAL UA BILIRUBIN DIPSTICK (test code=BILU) NEGATIVE MG/DL NEGATIVE UA KETONE DIPSTICK (test code=KETU) NEGATIVE MG/DL NEGATIVE UA SPECIFIC GRAVITY (test code=SGU) 1.015 1.003-1.030 UA BLOOD DIPSTICK (test code=PRICILA) NEGATIVE Thang/mm3 NEGATIVE UA PH DIPSTICK (test code=PAM) 6.0 5.0-9.0 UA PROTEIN DIPSTICK (test code=PROU) 15 MG/DL NEGATIVE UA UROBILINIOGEN DIPSTICK (test code=URO) NORMAL MG/DL NORMAL UA NITRITE DIPSTICK (test code=THELMA) NEGATIVE NEGATIVE UA LEUKOCYTE ESTERASE DIPSTICK (test NEGATIVE /mm3 NEGATIVE code=LEUU) UA CULTURE NEEDED? (test code=UACULT) Criteria Culture Chk UA [id number] 19:05:00 Test Item Value Reference Range Comments UA RBC (test code=RBCU) RBC/HPF 0-3 UA WBC (test code=XWBCU) WBC/HPF 0-5 UA EPITHELIAL CELLS (test code=EPIU) EPI/HPF FEW UA BACTERIA (test code=XBACU) NONE COMPREHENSIVE METABOLIC [id number] 18:56:00 Test Item Value Reference Range Comments SODIUM (test code=NA) 140 MMOL/L 137-145 POTASSIUM (test code=K) 3.6 MMOL/L 3.5-5.1 CHLORIDE (test code=CL) 106 MMOL/L 98-107 CARBON DIOXIDE (test code=CO2) 27 MMOL/L 22-30 GLUCOSE (test code=GLU) 129 MG/DL 74-106 BLOOD UREA NITROGEN (test 36 MG/DL 7-17 code=BUN) GLOMERULAR FILTRATION RATE > 60 Reporting units: (test code=GFR) ml/min/1.73 m2 (Modified MDRD Formula)Reference Range: > or=60 ml/min/1.73 m2 CREATININE (test code=CREAT) 0.80 MG/DL 0.52-1.04 TOTAL PROTEIN (test code=PROT) 7.3 G/DL 6.3-8.2 ALBUMIN (test code=ALB) 3.8 G/DL 3.5-5.0 CALCIUM (test code=CA) 9.1 MG/DL 8.4-10.2 BILIRUBIN TOTAL (test < 0.1 MG/DL 0.2-1.3 code=BILT) SGOT/AST (test code=AST) 33 UNITS/L 14-36 SGPT/ALT (test code=ALT) 14 UNITS/L 9-52 ALKALINE PHOSPHATASE (test 78 UNITS/L 38-126 code=ALKP) CBC W/O [id number] 18:27:00 Test Item Value Reference Range Comments WHITE BLOOD CELL (test code=WBC) 18.3 K/MM3 3.8-9.8 RED BLOOD CELL (test code=RBC) 3.85 M/MM3 3.58-4.97 HEMOGLOBIN (test code=HGB) 11.1 G/DL 11.2-14.9 HEMATOCRIT (test code=HCT) 36.4 % 33.2-43.5 MEAN CELL VOLUME (test code=MCV) 95 fL 80.7-99.1 MEAN CELL HGB (test code=MCH) 28.8 pg 27.0-34.1 MEAN CELL HGB CONCETRATION (test code=MCHC) 30.5 % 32.2-35.7 RED CELL DISTRIBUTION WIDTH (test code=RDW) 15.2 % 12.1-15.2 PLATELET COUNT (test code=PLT) 227 K/MM3 129-368 IMMATURE GRANULOCYTE % (test code=IG%) 1.9 % 0.0-2.0 NEUTROPHIL # (test code=NT#) 15.3 K/mm3 2.0-7.6 IMMATURE GRANULOCYTE # (test code=IG#) 0.34 x10 3/uL 0-0.03 LYMPHOCYTE # (test code=LY#) 1.4 K/mm3 1.0-3.8 MONOCYTE # (test code=MO#) 0.97 K/mm3 0.1-0.8 EOSINOPHIL # (test code=EO#) 0.4 K/mm3 0.0-0.2 BASOPHIL # (test code=BA#) 0.04 K/mm3 0.0-0.2 NUCLEATED RBC # (test code=NRBC#) 0.0 K/mm3 0.0-0.1 POC VENOUS BLOOD [id number] 18:26:00 Test Item Value Reference Range Comments POC LACTIC ACID (test code=POCLAC) 1.68 MMOL/L 0.4-2.0 POC VENOUS BLOOD GAS PH (test code=POCPHV) 7.325 7.35-7.45 POC VENOUS BLOOD GAS PCO2 (test code=UKQTUB9G) 59.0 mmHg 35.0-45.0 POC VENOUS BLOOD GAS PO2 (test code=ZNRES0U) 19.0 mmHG 0-40 POC HCO3 VENOUS (test code=FYHWXP3S) 30.7 MMOL/L 20-26 POC BASE EXCESS VENOUS (test code=POCBEV) 5 MMOL/L -3.0-3.0 POC O2 SATURATION VENOUS (test code=DVQL1XD) 24 % 72-77 - XR CHEST [id number] 18:16:00 Patient Name: KAM MANSFIELD Unit No: [id number] EXAMS: CPT CODE: [id number] XR CHEST 1V 64328 STUDY: Chest radiograph HISTORY: Altered mental status. COMPARISON: None TECHNIQUE: Frontal view of the chest. SITE: R16 FINDINGS: The cardiac silhouette is unremarkable. The aorta is atherosclerotic. The lungs are hyperaerated. The interstitium appears normally prominent. There is biapical pleural- parenchymal scarring. There is no focal consolidation, pleural effusion, or pneumothorax. There is a chronic appearing left humeral fracture at the surgical neck. IMPRESSION: No radiographic evidence for acute pulmonary abnormality. Prominent interstitial markings likely reflective of chronic lung disease in this patient with findings suggestive of COPD. Chronic appearing left surgical humeral neck fracture, correlate clinically. at 1816 Reported and signed by: Mehrdad Lipscomb MD CC: Rohini Iverson MD; [place] Technologist: Tiera Lancaster (RT) Transcrpt Date/Tm/Trnsp: 2018 (1815) [id number] Orig Print D/T: S: 11/27/2018 (1818) [facility] NAME: KAM MANSFIELD [address] PHYS: [email or web address] - [place] [address] : 1940 AGE: 78 SEX: F LOC: KeyaNISA PHONE #: [phone] EXAM DATE: 11/27/2018 STATUS: REG ER FAX # : [phone] RADIOLOGY NO: PAGE 1 Signed Report
[2018-12-15 07:52] LABS: Absolute Lymphocytes (CBC) 1.9 K/uL (0.7-4.9); Absolute Monocytes 0.9 K/uL (0.1-1.3); Absolute Neutrophil 9.5 K/uL (1.8-8.0); Basophils % 0.8 % (0-1.3); Eosinophils % 2.1 % (0-4.4); Hematocrit 27.6 % (36.0-45.0); Lymphocytes % 14.9 % (15.3-44.8); MPV 7.5 fL (7.6-11.3); Monocytes % 7.1 % (3.3-12.3); RBC Red Blood Cell Count 3.09 M/uL (3.86-4.86)
[2018-12-15 07:53] LABS: Protime INR 1.99
--- NOTE | 2018-12-15 08:09 | RAD REPORT ---
EXAM DESCRIPTION: CT - Facial Bones W/ Mpr - 12/15/2018 7:51 am CLINICAL HISTORY: Facial injury status post fall. Facial pain COMPARISON: None TECHNIQUE: Computed axial tomography of the face was obtained. Coronal and sagittal reconstruction w as performed. All CT scans are performed using dose optimization technique as appropriate and may include automated exposure control or mA/KV adjustment according to patient size. FINDINGS: A minimally displaced transverse fracture nasal septum is deviated A TMJ dislocation is not noted. The globes are intact. Small amount of fluid is present within the right maxillary and sphenoid sinus IMPRESSION: Minimally displaced asthma fracture
[2018-12-15] MEDS ORDERED: NA CHLORIDE 0.9% 1,000 ML ONE (08:11)
[2018-12-15] MEDS ORDERED: TETANUS & DIPHTHERIA TOX,ADULT 0.5 ML VIAL ONE (08:11)
[2018-12-15 08:18] LABS: ALT/SGPT 11 U/L (12-78); AST/SGOT 44 U/L (15-37); Albumin 2.4 g/dL (3.4-5.0); Alkaline Phosphatase 99 U/L (45-117); BUN Blood Urea Nitrogen 42 mg/dL (7-18); Bicarbonate 21 mmol/L (21-32); Bilirubin Direct < 0.1 mg/dL (0-0.2); Bilirubin Total 0.2 mg/dL (0.2-1.0); Creatine Phosphokinase 177 U/L (26-192); Glucose Level 116 mg/dL (74-106); Lipase 112 U/L (73-393); Magnesium 1.6 mg/dL (1.8-2.4); Protein, Total 7.4 g/dL (6.4-8.2); Sodium Level 147 mmol/L (136-145); Troponin (Emerg Dept Use Only) 0.02 ng/mL (0.0-0.045)
--- NOTE | 2018-12-15 08:19 | RAD REPORT ---
EXAM DESCRIPTION: CT - Head C Spine Mpr Wo Con - 12/15/2018 7:51 am CLINICAL HISTORY: Head and neck injury status post fall. Head and neck pain COMPARISON: May [address] TECHNIQUE: Computed axial tomography of the head and cervical spine was obtained. Sagittal and coronal reconstruction was performed. All CT scans are performed using dose optimization technique as appropriate and may include automated exposure control or mA/KV adjustment according to patient size. FINDINGS: An intracranial bleed is not seen. Since the prior exam an 8 centimeter low-density area h as developed within the right frontal and right parietal lobes. The sulci appear more prominent than on the prior exam. Moderate low-density within periventricular, deep and subcortical white matter likely represent ische darling changes secondary to small vessel disease. Cerebral atrophy is noted. A cervical fracture is not visualized. Mild posterior subluxation of C5 on C6 is present with disc sp bridgette narrowing and osteophytes. The most likely this is chronic. IMPRESSION: Development of an 8 centimeter low-density area within the right frontal and right parie anay lobes. This has the appearance of an infarct which appears relatively remote. However it has deve loped since May 2018. If the patient has not had a CVA since May 2018 then MRI with contrast wo uld be recommended for further evaluation A cervical fracture is not visualized. If the patient continues to have symptoms to suggest spinal c ord/ligamentous pathology then MRI would be recommended
--- NOTE | 2018-12-15 08:37 | RAD REPORT ---
EXAM DESCRIPTION: RAD - Elbow Left 3 View - 12/15/2018 7:47 am CLINICAL HISTORY: Left elbow pain status post trauma FINDINGS: The bones are osteoporotic No fracture or dislocation is seen.
[2018-12-15] MEDS ORDERED: CEFTRIAXONE/SWI 1gm 1 GM/10 ML SYR ONE (09:34)
[2018-12-15 09:41] LABS: Urine Blood NEGATIVE (NEG); Urine Glucose NEGATIVE (NEG); Urine Protein NEGATIVE (NEG)
--- NOTE | 2018-12-15 09:57 | EDPHYS ---
Physician Documentation [facility] Name: Valery Nair Age: 78 yrs Sex: Female : 1940 Arrival Date: 12/15/2018 Time: 07:08 Bed 4 Private MD: ED Physician Humza Grande HPI: 12/15 07:26 This 78 yrs old Female presents to ER via EMS with complaints of Fall Injury. ma2 07:26 Details of fall: The patient fell from seated position. Onset: The symptoms/episode ma2 began/occurred suddenly, 1 day(s) ago. Associated injuries: The patient sustained injury to the head. Severity of symptoms: At their worst the symptoms were moderate, in the emergency department the symptoms are unchanged. The patient has experienced similar episodes in the past. Historical: - Allergies: 07:09 No Known Allergies; aa5 - Home Meds: 07:51 Arginaid oral oral [Active]; ascorbic acid (vitamin C) 500 mg tab twice a day [Active]; aa5 benzonatate 200 mg oral cap 3 times per day [Active]; Eliquis 5 mg oral tab 1 tab 2 times per day [Active]; ipratropium-albuterol 0.5 mg-3 mg(2.5 mg base)/3 mL Inhl nebu every 6 hrs PRN [Active]; Lasix 20 mg Oral tab once daily [Active]; multivitamin oral oral [Active]; nifedipine 20 mg Oral cap 1 cap 3 times per day [Active]; Nystatin Topical apply to nanda area per shift for preventative [Active]; Vitamin D3 5,000 unit oral tab every monday [Active]; zinc sulfate 220 (50) mg Oral cap twice a day [Active]; - PMHx: 07:09 Anemia; CVA; Hypertension; Dementia; COPD; 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 - Social history:: Smoking status: unknown Patient/guardian denies using alcohol, street drugs. - Immunization history: Last tetanus immunization: unknown. - Ebola Screening: : Patient denies travel to an Ebola-affected area in the 21 days before illness onset. - Family history:: not pertinent. ROS: 07:26 Constitutional: Negative for fever, chills, and weight loss, Cardiovascular: Negative ma2 for chest pain, palpitations, and edema, Respiratory: Negative for shortness of breath, cough, wheezing, and pleuritic chest pain, Abdomen/GI: Negative for abdominal pain, nausea, diarrhea, and constipation. 07:26 Neuro: Positive for altered mental status, Negative for headache, numbness, tremor. 07:26 All other systems are negative. Exam: 07:26 Constitutional: This is a well developed, well nourished patient who is awake, alert, ma2 and in no acute distress. Eyes: Pupils equal round and reactive to light, extra-ocular motions intact. Lids and lashes normal. Conjunctiva and sclera are non-icteric and not injected. Cornea within normal limits. Periorbital areas with no swelling, redness, or edema. ENT: Nares patent. No nasal discharge, no septal abnormalities noted. Tympanic membranes are normal and external auditory canals are clear. Oropharynx with no redness, swelling, or masses, exudates, or evidence of obstruction, uvula midline. Mucous membranes moist. Neck: Trachea midline, no thyromegaly or masses palpated, and no cervical lymphadenopathy. Supple, full range of motion without nuchal rigidity, or vertebral point tenderness. No Meningismus. Chest/axilla: Normal chest wall appearance and motion. Nontender with no deformity. No lesions are appreciated. Cardiovascular: Regular rate and rhythm with a normal S1 and S2. No gallops, murmurs, or rubs. Normal PMI, no JVD. No pulse deficits. Respiratory: Lungs have equal breath sounds bilaterally, clear to auscultation and percussion. No rales, rhonchi or wheezes noted. No increased work of breathing, no retractions or nasal flaring. Abdomen/GI: Soft, non-tender, with normal bowel sounds. No distension or tympany. No guarding or rebound. No evidence of tenderness throughout. 07:26 Head/face: Noted is abrasion(s), tenderness, Sinus tenderness, that is mild. 07:26 Abdomen/GI: Inspection: abdomen appears normal. 07:26 Musculoskeletal/extremity: Extremities: contusion, decreased ROM, deformity, left elbow . 07:26 Skin: facial abrasions. 07:26 Neuro: Orientation: to situation, Not oriented to person, place, time. ma2 Vital Signs: 07:09 BP 147 / 72; Pulse 120; Resp 18 S; Temp 98.3(A); Pulse Ox 92% on R/A; aa5 08:05 BP 159 / 84; Pulse 117; Resp 18 S; Pulse Ox 97% on 2 lpm NC; aa5 09:05 BP 140 / 73; Pulse 107; Resp 16 S; Temp 98.4(A); Pulse Ox 99% on 2 lpm NC; aa5 09:27 Weight 54.43 kg; iw 10:00 BP 159 / 54; Pulse 108; Resp 20 S; Pulse Ox 97% on 2 lpm NC; aa5 10:53 BP 144 / 62; Pulse 104; Resp 18; Pulse Ox 98% on 2 lpm NC; la1 Janell Coma Score: 07:09 Eye Response: spontaneous(4). Verbal Response: confused(4). Motor Response: obeys aa5 commands(6). Total: 14. Trauma Score (Adult): 07:09 Eye Response: spontaneous(1); Verbal Response: confused(1); Motor Response: obeys aa5 commands(2); Systolic BP: > 89 mm Hg(4); Respiratory Rate: 10 to 29 per min(4); [place] Score: 14; Trauma Score: 12 08:05 Eye Response: spontaneous(1); Verbal Response: confused(1); Motor Response: obeys aa5 commands(2); Systolic BP: > 89 mm Hg(4); Respiratory Rate: 10 to 29 per min(4); [place] Score: 14; Trauma Score: 12 09:05 Eye Response: spontaneous(1); Verbal Response: confused(1); Motor Response: obeys aa5 commands(2); Systolic BP: > 89 mm Hg(4); Respiratory Rate: 10 to 29 per min(4); [place] Score: 14; Trauma Score: 12 10:00 Eye Response: spontaneous(1); Verbal Response: confused(1); Motor Response: obeys aa5 commands(2); Systolic BP: > 89 mm Hg(4); Respiratory Rate: 10 to 29 per min(4); [place] Score: 14; Trauma Score: 12 10:53 Eye Response: spontaneous(1); Verbal Response: confused(1); Motor Response: obeys la1 commands(2); Systolic BP: > 89 mm Hg(4); Respiratory Rate: 10 to 29 per min(4); [place] Score: 14; Trauma Score: 12 MDM: 07:10 Patient medically screened. la2 07:26 Differential diagnosis: abrasion, closed head injury, fracture, sprain, strain. la2 09:46 Data reviewed: vital signs, nurses notes. Counseling: I had a detailed discussion with ma2 the patient and/or guardian regarding: the historical points, exam findings, and any diagnostic results supporting the discharge/admit diagnosis, the presence of at least one elevated blood pressure reading (>120/80) during this emergency department visit, the need to transfer to another facility. ED course: patient has SIRS w elevated wbc and tachycardia w possible pneumonia , given IVF and antibiotics, HR improved, has broken nose and facial abrasion, CT head shows 8 cm hypodensity on frontopariatal, not seen on recent ct head and per radiology read acute stroke can not be rule out, she is out of the window for tpa, she is still disoriented to time place and person yet awake alert talking and protecting airway, at baseline she is oriented to name and place per the [place] [facility].. no other new deficit she will need MRI brain and neurology eval, needs medical admission and treatment for sepsis and pneumonia, ekg is irregular tachycardia with MAT, no neurology service available in our hospital, will transfer for higher level of care.. accepted at [facility] discussed with dr. Lo neurologist who state to transfer to er and accepting physician is [facility].. 12/15 07:22 Order name: Basic Metabolic Panel; Complete Time: 08:59 12/15 09:45 Interpretation: Abnormal. 12/15 07:22 Order name: CBC with Diff; Complete Time: 08:59 12/15 07:22 Order name: CPK; Complete Time: 08:59 12/15 07:22 Order name: Hepatic Function; Complete Time: 08:59 12/15 07:22 Order name: Lipase; Complete Time: 08:59 12/15 07:22 Order name: CT Head C Spine; Complete Time: 08:59 12/15 07:22 Order name: Magnesium; Complete Time: 08:59 ma2 12/15 07:22 Order name: Protime (+inr); Complete Time: 08:59 ma2 12/15 07:22 Order name: Ptt, Activated; Complete Time: 08:59 ma2 12/15 07:22 Order name: Troponin (emerg Dept Use Only); Complete Time: 08:59 ma2 12/15 07:22 Order name: Facial Bones W/O Con CT; Complete Time: 08:59 ma2 12/15 07:26 Order name: Elbow Left 3 View XRAY; Complete Time: 08:59 ma2 12/15 08:42 Order name: Urine Dipstick--Ancillary (enter results); Complete Time: 09:45 eb 12/15 07:22 Order name: Call for Old EKG; Complete Time: 07:30 ma2 12/15 07:22 Order name: EKG; Complete Time: 07:22 ma2 12/15 07:22 Order name: Cardiac monitoring; Complete Time: 07:25 ma2 12/15 07:22 Order name: EKG - Nurse/Tech; Complete Time: 07:25 ma2 12/15 07:22 Order name: IV Saline Lock; Complete Time: 07:26 ma2 12/15 07:22 Order name: Labs collected and sent; Complete Time: 07:39 ma2 12/15 07:22 Order name: NPO; Complete Time: 07:26 ma2 12/15 07:22 Order name: O2 Per Protocol; Complete Time: 07:26 ma2 12/15 07:22 Order name: O2 Sat Monitoring; Complete Time: 07:26 ma2 12/15 07:22 Order name: Urine Dipstick-Ancillary (obtain specimen); Complete Time: 08:39 ma2 12/15 08:39 Order name: Straight Cath; Complete Time: 08:39 aa5 Administered Medications: 08:00 Drug: NS 0.9% 1000 ml Route: IV; Rate: 1 bolus; Site: right wrist; aa5 09:53 Follow up: IV Status: Completed infusion; IV Intake: 1000ml aa5 08:00 Drug: Tetanus-Diphtheria Toxoid Adult 0.5 ml {[employer]: [employer]. Exp: aa5 11/29/2020. Lot #: [id number]. } Route: IM; Site: right deltoid; 08:30 Follow up: Response: No adverse reaction aa5 09:20 Drug: Rocephin 1 grams Route: IV; Rate: calculated rate; Site: right wrist; aa5 09:30 Follow up: Response: No adverse reaction aa5 10:54 Follow up: IV Status: Completed infusion la1 10:00 Drug: Magnesium Sulfate 1 grams Route: IVPB; Infused Over: 1 hrs; Site: right wrist; aa5 10:16 Follow up: Response: No adverse reaction aa5 10:54 Follow up: IV Status: Completed infusion la Point of Care Testing: Blood Glucose: 07:30 Blood Glucose: 134 mg/dL; aa5 Ranges: Critical Glucose Levels:Adult <50 mg/dl or >400 mg/dl <40 mg/dl or >180 mg/dl Disposition: 12/15/18 09:56 Transfer ordered to [facility]. Diagnosis are Pneumonia due to other specified bacteria, Symptoms and signs specifically associated with systemic inflammation and infection, Fracture of nasal bones, Abrasion of elbow. - Reason for transfer: Higher level of care. - Accepting physician is dr. noble. - Condition is Stable. - Problem is new. - Symptoms are unchanged. Signatures: Dispatcher [employer] EDMS Consuelo Chaudhry RN RN aa5 Humza Grande MD MD ma2 Andrea Patterson 2 Ellen Centeno Lee RN la1 Corrections: (The following items were deleted from the chart) 08:19 07:22 CKMB+C.LAB.BRZ ordered. EDCO EDMS 09:45 09:43 Within normal limits. ma2 ma2 10:04 09:56 12/15/2018 09:56 Transfer ordered to [facility]. ma2 Diagnosis is Pneumonia due to other specified bacteria; Symptoms and signs specifically associated with systemic inflammation and infection. Reason for transfer: Higher level of care. Accepting physician is dr. noble. Condition is Stable. Problem is new. Symptoms are unchanged. ma2 11:18 10:04 12/15/2018 09:56 Transfer ordered to [facility]. eb Diagnosis is Pneumonia due to other specified bacteria; Symptoms and signs specifically associated with systemic inflammation and infection; Fracture of nasal bones; Abrasion of elbow. Reason for transfer: Higher level of care. Accepting physician is dr. noble. Condition is Stable. Problem is new. Symptoms are unchanged. ma2
--- NOTE | 2018-12-15 09:57 | ER ---
Nurse's Notes [facility] Name: Valery Nair Age: 78 yrs Sex: Female : 1940 Arrival Date: 12/15/2018 Time: 07:08 Bed 4 Private MD: Diagnosis: Pneumonia due to other specified bacteria;Symptoms and signs specifically associated with systemic inflammation and infection;Fracture of nasal bones;Abrasion of elbow Presentation: 12/15 07:08 Acuity: MARIBETH 2 aa5 07:08 Presenting complaint: EMS states: fell out of bed this morning, approximately 1 1/2 ft. aa5 . EMS states "the nurse said that she had a nose bleed but it had stopped by the time we arrived at [facility]". EMS reports pt's baseline is A\\T\\Ox 2, pt currently oriented x person only. Pt is currently taking Eliquis for a left arm blood clot. Skin tear noted to left elbow. EMS reports pt was 93% RA upon arrival and increased to 96% via NC 2 L. Care prior to arrival: Cervical collar in place. Oxygen administered. via nasal cannula. Mechanism of Injury: Fall out of bed. Trauma event details: Injury occurred in the [facility], Injury occurred: [facility] Injury occurred: December 15, 2018. 07:08 Method Of Arrival: EMS: [facility] aa5 07:08 Transition of care: patient was not received from another setting of care. Onset of aa5 symptoms was December 15, 2018. Risk Assessment: Do you want to hurt yourself or someone else? Unable to obtain. Initial Sepsis Screen: Does the patient meet any 2 criteria? HR > 90 bpm. Does the patient have a suspected source of infection? No. Patient's initial sepsis screen is negative. Trauma Activation: Alert Physician: ED Physician; Name: ; Notified At: ; Arrived At: Physician: General Surgeon; Name: ; Notified At: ; Arrived At: Physician: Radiology; Name: ; Notified At: ; Arrived At: Physician: Respiratory; Name: ; Notified At: ; Arrived At: Physician: Lab; Name: ; Notified At: ; Arrived At: Historical: - Allergies: 07:09 No Known Allergies; aa5 - Home Meds: 07:51 Arginaid oral oral [Active]; ascorbic acid (vitamin C) 500 mg tab twice a day [Active]; aa5 benzonatate 200 mg oral cap 3 times per day [Active]; Eliquis 5 mg oral tab 1 tab 2 times per day [Active]; ipratropium-albuterol 0.5 mg-3 mg(2.5 mg base)/3 mL Inhl nebu every 6 hrs PRN [Active]; Lasix 20 mg Oral tab once daily [Active]; multivitamin oral oral [Active]; nifedipine 20 mg Oral cap 1 cap 3 times per day [Active]; Nystatin Topical apply to nanda area per shift for preventative [Active]; Vitamin D3 5,000 unit oral tab every monday [Active]; zinc sulfate 220 (50) mg Oral cap twice a day [Active]; - PMHx: 07:09 Anemia; CVA; Hypertension; Dementia; COPD; 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 - Social history:: Smoking status: unknown Patient/guardian denies using alcohol, street drugs. - Immunization history: Last tetanus immunization: unknown. - Ebola Screening: : Patient denies travel to an Ebola-affected area in the 21 days before illness onset. - Family history:: not pertinent. Screenin:35 Abuse screen: No signs of abuse noted. Nutritional screening: No deficits noted. aa5 Tuberculosis screening: No symptoms or risk factors identified. Fall Risk Fall in past 12 months (25 points). Secondary diagnosis (15 points) dementia, IV access (20 points). Mental Status- Overestimates/Forgets Limitations (15 pts.). Total Vazquez Fall Scale indicates High Risk Score (45 or more points). Fall prevention measures have been instituted. Side Rails Up X 2 Placed Close to Nursing Station. Primary Survey: 07:08 NO uncontrolled hemorrhage observed. A: The patient is alert. Airway: patent, Oxygen aa5 via nasal cannula at 2 liters per minute. Breathing/Chest: Respiratory pattern: regular, Respiratory effort: unlabored, Chest inspection: symmetrical rise and fall of the chest. Circulation: Skin color: pink. Disability Alert. Exposure/Environment: A warming method has been applied: A warm blanket has been provided to the patient. 07:25 Reassessment Airway Airway Patent Breathing/Chest Chest inspection Symmetrical aa5 Circulation Color [place] Disability Alert. Secondary Survey: 07:10 HEENT: Face Other bruise noted to forehead Nose: dry blood noted to nostrils . aa5 Gastrointestinal: No deficits noted. Bowel sounds present in all quadrants. Musculoskeletal: skin tear noted to left elbow, skin tear noted to R FA, and skin tear noted to right elbow. No active bleeding noted to sites. Assessment: 07:10 General: Appears comfortable, Behavior is calm, cooperative. Pain: Complains of pain in aa5 neck and face Unable to use pain scale. Does not appear to understand pain scale. Neuro: Level of Consciousness is awake, obeys commands, confused, Oriented to person, Speech is normal, Pt is able to nursing care partner with right hand and able to move right leg. No movement noted to left arm and left leg, contracture noted to left arm and left foot. Pupils are PERRL. EENT: Nares with dry blood noted bilaterally . Cardiovascular: Heart tones S1 S2 present Rhythm is irregular. Respiratory: Airway is patent Respiratory effort is even, unlabored, Respiratory pattern is regular, symmetrical, coarse to right lung and left lung clear. Wet cough noted at this time. GI: Abdomen is round non-distended, Bowel sounds present X 4 quads. Abd is soft X 4 quads. : brief noted. Derm: Skin is pink, warm \\T\\ dry. Skin tears noted to left elbow, right elbow, and right FA. Dark purple bruise noted to forehead with small superficial laceration to site, 3 small superficial lacerations noted to nose. Dressing noted to left hand. Duoderm noted to medial aspect right ankle, medial aspect of right foot, and to right second/third toes with no drainage noted to sites, sites appear round, approximately 0.5cm in diameter, white in color, pt has hx of pressure ulcers to bony prominences of right foot. Musculoskeletal: Contracture noted to left arm and left foot. 08:00 Reassessment: Pt back from CT scan. aa5 08:00 Neuro: Level of Consciousness is awake, obeys commands, confused, Oriented to person. aa5 Respiratory: Airway is patent Respiratory effort is even, unlabored, Respiratory pattern is regular, symmetrical. Derm: Skin is pink, warm \\T\\ dry. 08:05 Reassessment: Reassessment: Wound care completed to skin tears. Cleaned skin tear to aa5 left elbow, right elbow, and right FA with saline and Hibiclens, dressed with Neosporin, non-adherent dressing, and tegaderm. Cleaned laceration to forehead and nose with Hibiclens and saline, no active bleeding noted after cleaning dry blood to nose. . 08:40 Reassessment: Pt cleaned of bowel incontinence, soft brown stool noted. Clean brief aa5 applied. . 09:00 Reassessment: C-collar removed per MD . aa5 09:00 Neuro: Level of Consciousness is awake, obeys commands, confused. Respiratory: Airway aa5 is patent Respiratory effort is even, unlabored, Respiratory pattern is regular, symmetrical. Derm: Skin is pink, warm \\T\\ dry. 09:25 Reassessment: Contacted [facility], [facility] reported that they attempted to contact pt's aa5 daughter but they were unable to and they left a voicemail. [facility] notified of attempt to transfer pt to [facility]. . 09:30 Reassessment: MD states need to transfer to another facility, states to contact pt's aa5 family. Unsuccessful attempt to contact [place] (pt's daughter) at [phone], left voicemail.. 10:10 Reassessment: Report given to ER department at [facility]. . aa5 Vital Signs: 07:09 BP 147 / 72; Pulse 120; Resp 18 S; Temp 98.3(A); Pulse Ox 92% on R/A; aa5 08:05 BP 159 / 84; Pulse 117; Resp 18 S; Pulse Ox 97% on 2 lpm NC; aa5 09:05 BP 140 / 73; Pulse 107; Resp 16 S; Temp 98.4(A); Pulse Ox 99% on 2 lpm NC; aa5 09:27 Weight 54.43 kg; iw 10:00 BP 159 / 54; Pulse 108; Resp 20 S; Pulse Ox 97% on 2 lpm NC; aa5 10:53 BP 144 / 62; Pulse 104; Resp 18; Pulse Ox 98% on 2 lpm NC; la1 Roseboom Coma Score: 07:09 Eye Response: spontaneous(4). Verbal Response: confused(4). Motor Response: obeys aa5 commands(6). Total: 14. Trauma Score (Adult): 07:09 Eye Response: spontaneous(1); Verbal Response: confused(1); Motor Response: obeys aa5 commands(2); Systolic BP: > 89 mm Hg(4); Respiratory Rate: 10 to 29 per min(4); Roseboom Score: 14; Trauma Score: 12 08:05 Eye Response: spontaneous(1); Verbal Response: confused(1); Motor Response: obeys aa5 commands(2); Systolic BP: > 89 mm Hg(4); Respiratory Rate: 10 to 29 per min(4); Roseboom Score: 14; Trauma Score: 12 09:05 Eye Response: spontaneous(1); Verbal Response: confused(1); Motor Response: obeys aa5 commands(2); Systolic BP: > 89 mm Hg(4); Respiratory Rate: 10 to 29 per min(4); Janell Score: 14; Trauma Score: 12 10:00 Eye Response: spontaneous(1); Verbal Response: confused(1); Motor Response: obeys aa5 commands(2); Systolic BP: > 89 mm Hg(4); Respiratory Rate: 10 to 29 per min(4); Janell Score: 14; Trauma Score: 12 10:53 Eye Response: spontaneous(1); Verbal Response: confused(1); Motor Response: obeys la1 commands(2); Systolic BP: > 89 mm Hg(4); Respiratory Rate: 10 to 29 per min(4); Roseboom Score: 14; Trauma Score: 12 ED Course: 07:08 Patient arrived in ED. iw 07:08 Arm band placed on. aa5 07:08 Patient has correct armband on for positive identification. Bed in low position. Call aa5 light in reach. Side rails up X2. nuclear monitoring technician on. Pulse ox on. NIBP on. 07:08 Thermoregulation: warm blanket given to patient. aa5 07:09 Jeff Summers MD is Attending Physician. jairo 07:09 Humza Grande MD is Attending Physician. ma2 07:10 Oxygen administration via nasal cannula \\T\\ 2L/min. aa5 07:13 Triage completed. aa5 07:18 Consuelo Chaudhry RN is Primary Nurse. aa5 07:20 Missed attempt(s): 22 gauge in right forearm. Missed attempt by FAITH Johnson tech . aa5 Bleeding controlled, band aid applied, catheter tip intact. 07:30 Missed attempt(s): 22 gauge in right forearm. Bleeding controlled, band aid applied, aa5 catheter tip intact. 07:35 Initial lab(s) drawn, by me, sent to lab. Inserted saline lock: 22 gauge in right aa5 wrist, using aseptic technique. 07:45 X-ray completed. Portable x-ray completed in exam room. Patient tolerated procedure kp1 well. 07:46 Elbow Left 3 View XRAY In Process Unspecified. EDMS 07:51 CT Head C Spine In Process Unspecified. EDMS 07:51 Facial Bones W/O Con CT In Process Unspecified. EDMS 08:40 Urine collected: straight cath specimen, clear, Amount Returned: 400mL. aa5 09:04 initiated a transfer with Sandra at the [facility] transfer center. eb 09:09 No provider procedures requiring assistance completed. aa5 09:22 pt declined at [facility] due to not having the equipment (tele boxes) fot the eb patient per Sandra Owen RN Rubber Goods Tester. 09:26 initiated a transfer with June at the [facility]. eb 09:[address] Reyes the Neurologist science education professor with Dr. Grande for patient transfer eb consultation. 09:50 administrative approval given by June Osorio RN/ patient going to the er at [facility]/ report to be called [phone]. has accepted the patient in transfer/. 09:54 Report given to Guerrero Kirkland RN. aa5 10:54 Patient transferred, IV remains in place. la1 Administered Medications: 08:00 Drug: NS 0.9% 1000 ml Route: IV; Rate: 1 bolus; Site: right wrist; aa5 09:53 Follow up: IV Status: Completed infusion; IV Intake: 1000ml aa5 08:00 Drug: Tetanus-Diphtheria Toxoid Adult 0.5 ml {Custom Bow Maker: vLex. Exp: aa5 11/29/2020. Lot #: [id number]. } Route: IM; Site: right deltoid; 08:30 Follow up: Response: No adverse reaction aa5 09:20 Drug: Rocephin 1 grams Route: IV; Rate: calculated rate; Site: right wrist; aa5 09:30 Follow up: Response: No adverse reaction aa5 10:54 Follow up: IV Status: Completed infusion la1 10:00 Drug: Magnesium Sulfate 1 grams Route: IVPB; Infused Over: 1 hrs; Site: right wrist; aa5 10:16 Follow up: Response: No adverse reaction aa5 10:54 Follow up: IV Status: Completed infusion la1 Point of Care Testing: Blood Glucose: 07:30 Blood Glucose: 134 mg/dL; aa5 Ranges: Intake: 09:53 IV: 1000ml; Total: 1000ml. aa5 10:15 PO: 0ml; Total: 1000ml. aa5 Outcome: 09:56 ER care complete, transfer ordered by . ma2 09:56 Patient's length of stay in the Emergency Department was greater than 2 hours. aa5 10:53 Transferred by ground EMS la1 10:53 Condition: stable 10:53 Instructed on the need for transfer. 11:18 Patient left the ED. eb Signatures: Dispatcher [employer] EDMS Jeff Summers MD MD cha Williams, Irene, RN RN iw Calderon, Audri, RN RN aa5 Guerrero Kirkland RN RN la1 Princess Martinez Humza Weldon MD MD ok2 Ellen Centeno Corrections: (The following items were deleted from the chart) 07:17 07:08 Presenting complaint: EMS states: fell out of bed this morning. EMS states "the aa5 nurse said that she had a nose bleed but it had stopped by the time we arrived at [facility]". EMS reports pt's baseline is A\\T\\Ox 2, pt currently oriented x person only. Pt is currently taking Eliquis for a left arm blood clot. Skin tear noted to left elbow. EMS reports pt was 93% RA upon arrival and increased to 96% via NC 2 L. aa5 08:51 07:10 Musculoskeletal: skin tear noted to left elbow, Abrasion noted to right elbow, aa5 and skin tear noted to right elbow. No active bleeding noted to sites. aa5 09:09 07:10 Derm: Skin is pink, warm \\T\\ dry. Skin tears noted to left elbow, right elbow, and aa5 right FA. Dark purple bruise noted to forehead with small superficial laceration to site, 3 small superficial lacerations noted to nose. aa5 07:10 Musculoskeletal: Contracture noted to left arm and left foot. aa5 aa5 07:08 Care prior to arrival: Oxygen administered. via nasal cannula, aa5 aa5 07:08 Transition of care: patient was not received from another setting of care. aa5 aa5 10:15 09:30 Reassessment: MD states need to transfer to another facility, MD states to aa5 contact pt's family. Unsuccessful attempt to contact [place] (pt's daughter) at [phone]. . aa5
[2018-12-15] MEDS ORDERED: MAGNESIUM SULFATE 1 gm IVPB 1 GM/100 ML BAG IV ONE (10:07)
[2018-12-15 11:30] VITALS: TEMP 98.4
[2018-12-15 11:32] VITALS: BP 144/62; O2SAT 98
--- NOTE | 2018-12-17 09:18 | EKG ---
Test Date: 2018-12-15 Test Time: 07:04:00 [employer] Launch Commander: MERRICK MEASUREMENT RESULTS: Intervals: Rate: 120 AZ: 100 QRSD: 72 QT: 314 QTc: 443 [place]: P: 81 AZ: 100 QRS: 20 T: 71 INTERPRETIVE STATEMENTS: Sinus tachycardia with short AZ with premature atrial complexes Otherwise normal ECG Compared to ECG 06/14/2018 12:04:19 Atrial premature complex(es) now present Short AZ interval now present Sinus rhythm no longer present Electronically Signed On 12-17-18 09:17:36 SCARF GLUER by Sergio Mesa
== END 2018-12-15 11:18 | disposition short-term general hospital (02) ==
LOC: ER 07:00
DX: S02.2XXA Fracture of nasal bones, initial encounter for closed fracture (principal); S50.312A Abrasion of left elbow, initial encounter; J15.8 Pneumonia due to other specified bacteria; R65.10 Systemic inflammatory response syndrome (SIRS) of non-infectious origin without acute organ dysfunction; W19.XXXA Unspecified fall, initial encounter; Y93.9 Activity, unspecified; Y92.9 Unspecified place or not applicable; Z23 Encounter for immunization; Z79.01 Long term (current) use of anticoagulants; Z86.73 Personal history of transient ischemic attack (TIA), and cerebral infarction without residual deficits; I10 Essential (primary) hypertension; J44.9 Chronic obstructive pulmonary disease, unspecified; F03.90 Unspecified dementia, unspecified severity, without behavioral disturbance, psychotic disturbance, mood disturbance, and anxiety
CPT/HCPCS: 96365; 96361; 93005; 85025; 80048; 36415; 83735; 82550; 85610; 82962; 80076; 85730; 81003; 84484; 83690; 70450; 72125; 70486; 76377; 73080; 90714; 99285; J3475; J0696; J7030